=== PATIENT | male | born 1980 | race Caucasian/White ===

== ENCOUNTER 2017-03-20 15:58 | Emergency (ER) | payer MEDICAID ==
[~2017-03-20] VITALS: Ht 175.3 cm; Wt 104.0 kg
[~2017-03-20 15:58] MED LIST: BENZ2TAB58 PO; CLOZ100 PO; DIVA500T52 PO; MULT1TAB8 PO; OXYB5 PO; PANT40TA25 PO; RISP2 PO
[2017-03-20] MEDS ORDERED: SODIUM CHLORIDE 0.9% 1,000 ML IV ONE (16:45)
[2017-03-20] MEDS ORDERED: ONDANSETRON HCL 4 MG/2 ML VIAL IVP ONE (16:45)
[2017-03-20 16:54] LABS: BASOPHILS % (AUTO) 0.2 % (0.0-2.0); EOSINOPHILS % (AUTO) 0.1 % (1.0-6.0); HEMATOCRIT 45.7 % (41-53); HEMOGLOBIN 15.3 g/dL (13.5-17.5); LYMPHOCYTES # (AUTO) 1.5 K/uL (1.0-4.8); LYMPHOCYTES % (AUTO) 28.8 % (22.0-44.0); MEAN CORPUSCULAR HEMOGLOBIN 30.1 pg (26.0-34.0); MEAN CORPUSCULAR HGB CONC 33.6 G/dL (31.0-37.0); MEAN CORPUSCULAR VOLUME 90 fL (80-100); MONOCYTES # (AUTO) 0.3 K/uL (0.1-1.0); MONOCYTES % (AUTO) 6.2 % (2.0-9.0); NEUTROPHILS # (AUTO) 3.3 K/uL (1.8-7.7); NEUTROPHILS % (AUTO) 64.7 % (40.0-70.0); PLATELET COUNT (AUTO) 195 K/uL (150-450); RED BLOOD CELL COUNT(AUTO) 5.09 MIL/uL (4.50-5.90); RED CELL DISTRIBUTION WIDTH 13.7 % (11.5-14.5); WHITE BLOOD COUNT (AUTO) 5.1 K/uL (4.5-11.0)
[2017-03-20 17:06] LABS: ANION GAP 7 mmol/L (8-16); CALCIUM, TOTAL 9.4 mg/dL (8.8-10.5); CARBON DIOXIDE 31 mmol/L (22-29); CHLORIDE 101 mmol/L (98-107); CREATININE 1.17 mg/dL (0.60-1.30); GLOMERULAR FILTR. RATE CALC > 60 mL/min (>60); SODIUM SERUM 139 mmol/L (136-145); UREA NITROGEN, BLOOD 11 mg/dL (7-18)
[2017-03-20 17:12] LABS: ALANINE AMINOTRANSFERASE 49 U/L (12-78); ALBUMIN 4.4 g/dL (3.4-5.0); ASPARTATE AMINOTRANSFERASE 27 U/L (15-37); BILIRUBIN,TOTAL 0.2 mg/dL (0.1-1.0); TOTAL PROTEIN, SERUM 8.1 g/dL (6.4-8.2); VALPROIC ACID 83 mcg/mL (50-100)
[2017-03-20 18:54] VITALS: BP 136/76
== END 2017-03-20 19:06 | disposition home or self-care (01) ==
LOC: EMS 16:00
DX: R11.2 Nausea with vomiting, unspecified (principal); F10.10 Alcohol abuse, uncomplicated; F12.90 Cannabis use, unspecified, uncomplicated; K21.9 Gastro-esophageal reflux disease without esophagitis; I10 Essential (primary) hypertension; Z88.2 Allergy status to sulfonamides; Z91.011 Allergy to milk products; Z91.010 Allergy to peanuts
CPT/HCPCS: 36415; 80053; 80164; 83690; 85025; 96361; 96374; 99284; G0480; J2405; J7030

== ENCOUNTER 2018-05-11 14:25 | Inpatient (IN) | payer MEDICAID ==
[~2018-05-11] VITALS: Ht 175.3 cm; Wt 97.9 kg
[2018-05-11 15:08] LABS: HEMATOCRIT 36.3 % (41-53); HEMOGLOBIN 12.8 g/dL (13.5-17.5); MEAN CORPUSCULAR HGB CONC 35.3 G/dL (31.0-37.0); MEAN CORPUSCULAR VOLUME 85 fL (80-100); PLATELET COUNT (AUTO) 158 K/uL (150-450); RED BLOOD CELL COUNT(AUTO) 4.28 MIL/uL (4.50-5.90); RED CELL DISTRIBUTION WIDTH 13.8 % (11.5-14.5)
[2018-05-11 15:13] LABS: ANION GAP 9 mmol/L (8-16); CALCIUM, TOTAL 8.2 mg/dL (8.8-10.5); CARBON DIOXIDE 27 mmol/L (22-29); CHLORIDE 96 mmol/L (98-107); CREATININE 1.25 mg/dL (0.60-1.30); GLOMERULAR FILTR. RATE CALC > 60 mL/min (>60); GLUCOSE,RANDOM 113 mg/dL (70-110); POTASSIUM 3.3 mmol/L (3.5-5.1); SODIUM SERUM 132 mmol/L (136-145); UREA NITROGEN, BLOOD 11 mg/dL (7-18)
[2018-05-11 15:19] LABS: ALANINE AMINOTRANSFERASE 58 U/L (12-78); ALBUMIN 3.3 g/dL (3.4-5.0); ALKALINE PHOSPHATASE 71 U/L (46-116); ASPARTATE AMINOTRANSFERASE 50 U/L (15-37); BILIRUBIN,TOTAL 0.5 mg/dL (0.1-1.0); TOTAL PROTEIN, SERUM 7.1 g/dL (6.4-8.2)
[2018-05-11 15:42] LABS: BAND NEUTROPHILS % (MANUAL) 9 % (0-5); LYMPHOCYTES % (MANUAL) 36 % (22-44); MONOCYTES % (MANUAL) 13 % (2-9); SEGMENTED NEUTROPHILS % 42 % (40-70)
[2018-05-11 16:10] LABS: AMPHET/METH SCREEN,URINE NEGATIVE (NEGATIVE); BARBITURATE SCREEN, URINE NEGATIVE (NEGATIVE); BENZODIAZEPINES SCREEN,URINE NEGATIVE (NEGATIVE); CANNABINOID SCREEN,URINE NEGATIVE (NEGATIVE); COCAINE SCREEN,URINE NEGATIVE (NEGATIVE); METHADONE SCREEN, URINE NEGATIVE (NEGATIVE); OPIATE SCREEN,URINE NEGATIVE (NEGATIVE)
[2018-05-11 16:11] LABS: PHENCYCLIDINE SCREEN,URINE NEGATIVE (NEGATIVE)
[2018-05-11 16:16] LABS: APPEARANCE,URINE CLEAR (CLEAR); BILIRUBIN,URINE NEGATIVE (NEGATIVE); GLUCOSE, URINE (UA) NEGATIVE (NEGATIVE); KETONES,URINE NEGATIVE (NEGATIVE); LEUKOCYTE ESTERASE ,URINE NEGATIVE (NEGATIVE); NITRATE,URINE NEGATIVE (NEGATIVE); OCCULT BLOOD,URINE NEGATIVE (NEGATIVE); PROTEIN,URINE NEGATIVE (NEGATIVE)
[2018-05-11] MEDS: HALOPERIDOL 5 MG TABLET PO PRN (18:14)
[2018-05-11 19:39] VITALS: BP 136/74
[2018-05-11] MEDS: ZOLPIDEM TARTRATE 10 MG TABLET PO PRN (20:15)
[2018-05-11] MEDS ORDERED: IBUPROFEN 600 MG TABLET PO PRN (20:30)
[2018-05-11] MEDS ORDERED: BACITRACIN 28.4 GM OINTMENT TP PRN (20:30)
[2018-05-11] MEDS ORDERED: BENZOCAINE/MENTHOL LOZENGE MM PRN (20:30)
[2018-05-11] MEDS ORDERED: POTASSIUM CHLORIDE 20 MEQ ER TABLET PO ONE (20:30)
[2018-05-11] MEDS ORDERED: PETROLATUM,WHITE 71 GM JELLY TP PRN (20:30)
[2018-05-11] MEDS ORDERED: CloNIDine HCL 0.1 MG TABLET PO PRN (20:30)
[2018-05-11] MEDS ORDERED: ONDANSETRON HCL 4 MG TABLET PO PRN (20:30)
[2018-05-11] MEDS ORDERED: ALBUTEROL SULFATE HFA 90 MCG/PUFF 8 GM INHALER IH PRN (20:30)
[2018-05-11] MEDS ORDERED: MAGNESIUM HYDROXIDE SUSPENSION 30 ML UDCUP PO PRN (20:30)
[2018-05-12] MEDS: HALOPERIDOL 5 MG TABLET PO PRN ×3 (06:25→16:34)
[2018-05-12 08:00] VITALS: BP 140/73
[2018-05-12] MEDS: DOCUSATE SODIUM 100 MG CAPSULE PO SCH (09:06)
[2018-05-12] MEDS: PANTOPRAZOLE SODIUM 40 MG DR TABLET PO SCH (09:06)
[2018-05-12] MEDS: OXYBUTYNIN CHLORIDE 5 MG ER TABLET PO SCH (09:06)
[2018-05-12] MEDS ORDERED: DIVALPROEX SODIUM 500 MG ER TABLET PO SCH (09:44)
[2018-05-12] MEDS: QUEtiapine FUMARATE 100 MG TABLET PO SCH (10:29)
[2018-05-12] MEDS: BENZTROPINE MESYLATE 2 MG TABLET PO SCH ×2 (10:29→20:28)
[2018-05-12 16:00] VITALS: BP 144/89
[2018-05-12] MEDS ORDERED: LORazepam 2 MG/ML VIAL ONE (20:26)
[2018-05-12] MEDS ORDERED: HALOPERIDOL LACTATE 5 MG/ML VIAL ONE (20:27)
[2018-05-12] MEDS ORDERED: DiphenhydrAMINE HCL 50 MG/ML VIAL ONE (20:27)
[2018-05-12] MEDS: QUEtiapine FUMARATE 200 MG TABLET PO SCH (20:28)
[2018-05-12] MEDS: ZOLPIDEM TARTRATE 10 MG TABLET PO PRN (20:28)
[2018-05-12] MEDS ORDERED: DiphenhydrAMINE HCL 50 MG/ML VIAL IM ONE (20:30)
[2018-05-12] MEDS ORDERED: HALOPERIDOL LACTATE 5 MG/ML VIAL IM ONE (20:30)
[2018-05-12] MEDS ORDERED: LORazepam 2 MG/ML VIAL IM ONE (20:30)
[2018-05-12 21:02] VITALS: BP 126/65
[2018-05-13] MEDS ORDERED: SODIUM CHLORIDE 1 GM TABLET PO ONE (05:00)
[2018-05-13 06:04] VITALS: BP 122/68
[2018-05-13] MEDS: BENZTROPINE MESYLATE 2 MG TABLET PO SCH ×2 (08:25→20:40)
[2018-05-13] MEDS: OXYBUTYNIN CHLORIDE 5 MG ER TABLET PO SCH (08:25)
[2018-05-13] MEDS: PANTOPRAZOLE SODIUM 40 MG DR TABLET PO SCH (08:25)
[2018-05-13] MEDS: QUEtiapine FUMARATE 100 MG TABLET PO SCH (08:25)
[2018-05-13] MEDS: DOCUSATE SODIUM 100 MG CAPSULE PO SCH (08:25)
[2018-05-13] MEDS: MULTIVITAMINS WITH MINERALS, THERAPEUTIC TABLET PO SCH (08:25)
[2018-05-13 08:33] VITALS: BP 123/93
[2018-05-13 08:47] LABS: BASOPHILS % (AUTO) 0.3 % (0.0-2.0); EOSINOPHILS % (AUTO) 0 % (1.0-6.0); HEMATOCRIT 38.3 % (41-53); HEMOGLOBIN 13.5 g/dL (13.5-17.5); LYMPHOCYTES # (AUTO) 1.4 K/uL (1.0-4.8); LYMPHOCYTES % (AUTO) 29.7 % (22.0-44.0); MEAN CORPUSCULAR HEMOGLOBIN 30.2 pg (26.0-34.0); MEAN CORPUSCULAR HGB CONC 35.3 G/dL (31.0-37.0); MEAN CORPUSCULAR VOLUME 86 fL (80-100); MONOCYTES # (AUTO) 0.5 K/uL (0.1-1.0); NEUTROPHILS # (AUTO) 2.8 K/uL (1.8-7.7); PLATELET COUNT (AUTO) 167 K/uL (150-450); RED BLOOD CELL COUNT(AUTO) 4.48 MIL/uL (4.50-5.90); RED CELL DISTRIBUTION WIDTH 14.2 % (11.5-14.5)
[2018-05-13 09:21] LABS: % IRON SATURATION 15.8 % (30-44); IRON, SERUM 49 mcg/dL (50-175); TOTAL IRON BINDING CAPACITY 310 mcg/dL (250-450)
[2018-05-13 09:34] LABS: ALANINE AMINOTRANSFERASE 53 U/L (12-78); ALBUMIN 3.7 g/dL (3.4-5.0); ALKALINE PHOSPHATASE 73 U/L (46-116); ANION GAP 9 mmol/L (8-16); ASPARTATE AMINOTRANSFERASE 33 U/L (15-37); BILIRUBIN,TOTAL 0.4 mg/dL (0.1-1.0); CALCIUM, TOTAL 8.5 mg/dL (8.8-10.5); CARBON DIOXIDE 26 mmol/L (22-29); CHLORIDE 104 mmol/L (98-107); CREATININE 1.28 mg/dL (0.60-1.30); FREE T4 (FREE THYROXINE) 0.87 ng/dL (0.76-1.46); GLOMERULAR FILTR. RATE CALC > 60 mL/min (>60); GLUCOSE,RANDOM 96 mg/dL (70-110); POTASSIUM 3.6 mmol/L (3.5-5.1); SODIUM SERUM 139 mmol/L (136-145); THYROID STIMULATING HORMONE 5.87 uIU/mL (0.36-3.74); TOTAL PROTEIN, SERUM 8.1 g/dL (6.4-8.2); UREA NITROGEN, BLOOD 16 mg/dL (7-18); VALPROIC ACID 30 mcg/mL (50-100)
[2018-05-13] MEDS: DIVALPROEX SODIUM 500 MG ER TABLET PO SCH ×2 (12:11→16:27)
[2018-05-13] MEDS: LORazepam 2 MG TABLET PO PRN ×2 (14:15→18:32)
[2018-05-13 16:00] VITALS: BP 125/74
[2018-05-13] MEDS: HALOPERIDOL 5 MG TABLET PO PRN (16:27)
[2018-05-13] MEDS: QUEtiapine FUMARATE 200 MG TABLET PO SCH (20:40)
[2018-05-13] MEDS: ZOLPIDEM TARTRATE 10 MG TABLET PO PRN (20:40)
[2018-05-14 04:36] VITALS: BP 125/80
[2018-05-14] MEDS: LEVOTHYROXINE SODIUM 25 MCG TABLET PO SCH (06:25)
[2018-05-14 08:29] VITALS: BP 144/85
[2018-05-14] MEDS: MULTIVITAMINS WITH MINERALS, THERAPEUTIC TABLET PO SCH (08:55)
[2018-05-14] MEDS: DIVALPROEX SODIUM 500 MG ER TABLET PO SCH ×3 (08:55→16:01)
[2018-05-14] MEDS: DOCUSATE SODIUM 100 MG CAPSULE PO SCH (08:55)
[2018-05-14] MEDS: QUEtiapine FUMARATE 100 MG TABLET PO SCH (08:55)
[2018-05-14] MEDS: BENZTROPINE MESYLATE 2 MG TABLET PO SCH ×2 (08:55→20:42)
[2018-05-14] MEDS: OXYBUTYNIN CHLORIDE 5 MG ER TABLET PO SCH (08:55)
[2018-05-14] MEDS: PANTOPRAZOLE SODIUM 40 MG DR TABLET PO SCH (08:56)
[2018-05-14 16:00] VITALS: BP 134/86
[2018-05-14] MEDS: HALOPERIDOL 5 MG TABLET PO PRN (16:01)
[2018-05-14] MEDS: LORazepam 2 MG TABLET PO PRN ×2 (16:01→20:43)
[2018-05-14] MEDS: QUEtiapine FUMARATE 200 MG TABLET PO SCH (20:42)
[2018-05-14] MEDS: ZOLPIDEM TARTRATE 10 MG TABLET PO PRN (20:43)
[2018-05-15 04:21] VITALS: BP 131/69
[2018-05-15] MEDS: LEVOTHYROXINE SODIUM 25 MCG TABLET PO SCH (06:17)
[2018-05-15] MEDS: MULTIVITAMINS WITH MINERALS, THERAPEUTIC TABLET PO SCH (08:05)
[2018-05-15] MEDS: PANTOPRAZOLE SODIUM 40 MG DR TABLET PO SCH (08:05)
[2018-05-15] MEDS: OXYBUTYNIN CHLORIDE 5 MG ER TABLET PO SCH (08:05)
[2018-05-15] MEDS: DOCUSATE SODIUM 100 MG CAPSULE PO SCH (08:05)
[2018-05-15] MEDS: BENZTROPINE MESYLATE 2 MG TABLET PO SCH ×2 (08:05→20:56)
[2018-05-15] MEDS: QUEtiapine FUMARATE 100 MG TABLET PO SCH (08:05)
[2018-05-15] MEDS: DIVALPROEX SODIUM 500 MG ER TABLET PO SCH ×3 (08:05→16:03)
[2018-05-15 08:25] VITALS: BP 137/82
[2018-05-15 16:00] VITALS: BP 142/72
[2018-05-15] MEDS: LORazepam 2 MG TABLET PO PRN (16:03)
[2018-05-15] MEDS: ZOLPIDEM TARTRATE 10 MG TABLET PO PRN (20:56)
[2018-05-15] MEDS: QUEtiapine FUMARATE 200 MG TABLET PO SCH (20:56)
[2018-05-16 00:05] VITALS: BP 124/75
[2018-05-16] MEDS: LEVOTHYROXINE SODIUM 25 MCG TABLET PO SCH (06:28)
[2018-05-16 08:09] VITALS: BP 127/67
[2018-05-16] MEDS: PANTOPRAZOLE SODIUM 40 MG DR TABLET PO SCH (08:09)
[2018-05-16] MEDS: BENZTROPINE MESYLATE 2 MG TABLET PO SCH ×2 (08:09→20:22)
[2018-05-16] MEDS: QUEtiapine FUMARATE 100 MG TABLET PO SCH (08:09)
[2018-05-16] MEDS: MULTIVITAMINS WITH MINERALS, THERAPEUTIC TABLET PO SCH (08:09)
[2018-05-16] MEDS: DOCUSATE SODIUM 100 MG CAPSULE PO SCH (08:09)
[2018-05-16] MEDS: DIVALPROEX SODIUM 500 MG ER TABLET PO SCH ×3 (08:09→16:21)
[2018-05-16] MEDS: LORazepam 2 MG TABLET PO PRN ×4 (08:10→20:22)
[2018-05-16] MEDS: OXYBUTYNIN CHLORIDE 5 MG ER TABLET PO SCH (08:10)
[2018-05-16] MEDS: HALOPERIDOL 5 MG TABLET PO PRN ×2 (12:21→16:21)
[2018-05-16 16:00] VITALS: BP 121/67
[2018-05-16] MEDS: QUEtiapine FUMARATE 200 MG TABLET PO SCH (20:22)
[2018-05-16] MEDS: ZOLPIDEM TARTRATE 10 MG TABLET PO PRN (20:22)
[2018-05-17 03:29] VITALS: BP 127/72
[2018-05-17 05:11] VITALS: BP 122/81
[2018-05-17] MEDS: IBUPROFEN 600 MG TABLET PO PRN (05:15)
[2018-05-17] MEDS: LORazepam 2 MG TABLET PO PRN ×4 (05:15→20:26)
[2018-05-17] MEDS: LEVOTHYROXINE SODIUM 25 MCG TABLET PO SCH (06:24)
[2018-05-17 08:12] VITALS: BP 123/61
[2018-05-17] MEDS: QUEtiapine FUMARATE 100 MG TABLET PO SCH (08:55)
[2018-05-17] MEDS: DIVALPROEX SODIUM 500 MG ER TABLET PO SCH ×3 (08:55→16:19)
[2018-05-17] MEDS: BENZTROPINE MESYLATE 2 MG TABLET PO SCH ×2 (08:55→20:26)
[2018-05-17] MEDS: OXYBUTYNIN CHLORIDE 5 MG ER TABLET PO SCH (08:56)
[2018-05-17] MEDS: DOCUSATE SODIUM 100 MG CAPSULE PO SCH (08:56)
[2018-05-17] MEDS: MULTIVITAMINS WITH MINERALS, THERAPEUTIC TABLET PO SCH (08:56)
[2018-05-17] MEDS: PANTOPRAZOLE SODIUM 40 MG DR TABLET PO SCH (08:56)
[2018-05-17] MEDS: HALOPERIDOL 5 MG TABLET PO PRN (13:30)
[2018-05-17 16:16] VITALS: BP 130/76
[2018-05-17] MEDS: ZOLPIDEM TARTRATE 10 MG TABLET PO PRN (20:26)
[2018-05-17] MEDS: QUEtiapine FUMARATE 200 MG TABLET PO SCH (20:26)
[2018-05-18 00:30] VITALS: BP 133/72
[2018-05-18] MEDS: LEVOTHYROXINE SODIUM 25 MCG TABLET PO SCH (06:11)
[2018-05-18 09:19] VITALS: BP 138/87
[2018-05-18] MEDS: LORazepam 2 MG TABLET PO PRN ×2 (09:38→16:07)
[2018-05-18] MEDS: BENZTROPINE MESYLATE 2 MG TABLET PO SCH ×2 (09:38→20:11)
[2018-05-18] MEDS: HALOPERIDOL 5 MG TABLET PO PRN ×2 (09:38→16:07)
[2018-05-18] MEDS: PANTOPRAZOLE SODIUM 40 MG DR TABLET PO SCH (09:38)
[2018-05-18] MEDS: QUEtiapine FUMARATE 100 MG TABLET PO SCH (09:38)
[2018-05-18] MEDS: DIVALPROEX SODIUM 500 MG ER TABLET PO SCH ×3 (09:38→16:07)
[2018-05-18] MEDS: DOCUSATE SODIUM 100 MG CAPSULE PO SCH (09:38)
[2018-05-18] MEDS: OXYBUTYNIN CHLORIDE 5 MG ER TABLET PO SCH (09:38)
[2018-05-18] MEDS: MULTIVITAMINS WITH MINERALS, THERAPEUTIC TABLET PO SCH (09:38)
[2018-05-18 16:00] VITALS: BP 124/69
[2018-05-18] MEDS: ZOLPIDEM TARTRATE 10 MG TABLET PO PRN (20:11)
[2018-05-18] MEDS: QUEtiapine FUMARATE 200 MG TABLET PO SCH (20:11)
[2018-05-19 00:34] VITALS: BP 130/72
[2018-05-19] MEDS: LEVOTHYROXINE SODIUM 25 MCG TABLET PO SCH (06:22)
[2018-05-19 08:02] VITALS: BP 133/70
[2018-05-19] MEDS: DOCUSATE SODIUM 100 MG CAPSULE PO SCH (08:06)
[2018-05-19] MEDS: BENZTROPINE MESYLATE 2 MG TABLET PO SCH ×2 (08:06→21:02)
[2018-05-19] MEDS: DIVALPROEX SODIUM 500 MG ER TABLET PO SCH ×3 (08:06→17:08)
[2018-05-19] MEDS: QUEtiapine FUMARATE 100 MG TABLET PO SCH (08:07)
[2018-05-19] MEDS: OXYBUTYNIN CHLORIDE 5 MG ER TABLET PO SCH (08:09)
[2018-05-19] MEDS: PANTOPRAZOLE SODIUM 40 MG DR TABLET PO SCH (08:10)
[2018-05-19] MEDS: LORazepam 2 MG TABLET PO PRN ×2 (08:24→17:09)
[2018-05-19] MEDS: MULTIVITAMINS WITH MINERALS, THERAPEUTIC TABLET PO SCH (09:35)
[2018-05-19 16:13] VITALS: BP 123/69
[2018-05-19] MEDS: ZOLPIDEM TARTRATE 10 MG TABLET PO PRN (21:02)
[2018-05-19] MEDS: QUEtiapine FUMARATE 200 MG TABLET PO SCH (21:02)
[2018-05-20 05:13] VITALS: BP 123/80
[2018-05-20] MEDS: LEVOTHYROXINE SODIUM 25 MCG TABLET PO SCH (06:21)
[2018-05-20 08:41] VITALS: BP 132/77
[2018-05-20] MEDS: PANTOPRAZOLE SODIUM 40 MG DR TABLET PO SCH (08:44)
[2018-05-20] MEDS: OXYBUTYNIN CHLORIDE 5 MG ER TABLET PO SCH (08:44)
[2018-05-20] MEDS: BENZTROPINE MESYLATE 2 MG TABLET PO SCH ×2 (08:45→20:26)
[2018-05-20] MEDS: LORazepam 2 MG TABLET PO PRN ×3 (08:45→20:26)
[2018-05-20] MEDS: QUEtiapine FUMARATE 100 MG TABLET PO SCH (08:45)
[2018-05-20] MEDS: DOCUSATE SODIUM 100 MG CAPSULE PO SCH (08:45)
[2018-05-20] MEDS: MULTIVITAMINS WITH MINERALS, THERAPEUTIC TABLET PO SCH (08:45)
[2018-05-20] MEDS: DIVALPROEX SODIUM 500 MG ER TABLET PO SCH ×3 (08:45→17:17)
[2018-05-20 16:15] VITALS: BP 123/87
[2018-05-20] MEDS: QUEtiapine FUMARATE 200 MG TABLET PO SCH (20:26)
[2018-05-21 04:44] VITALS: BP 114/72
[2018-05-21] MEDS: LEVOTHYROXINE SODIUM 25 MCG TABLET PO SCH (06:31)
[2018-05-21 08:07] VITALS: BP 140/69
[2018-05-21] MEDS: MULTIVITAMINS WITH MINERALS, THERAPEUTIC TABLET PO SCH (08:38)
[2018-05-21] MEDS: BENZTROPINE MESYLATE 2 MG TABLET PO SCH ×2 (08:38→20:32)
[2018-05-21] MEDS: DOCUSATE SODIUM 100 MG CAPSULE PO SCH (08:38)
[2018-05-21] MEDS: QUEtiapine FUMARATE 100 MG TABLET PO SCH (08:38)
[2018-05-21] MEDS: DIVALPROEX SODIUM 500 MG ER TABLET PO SCH ×3 (08:39→16:28)
[2018-05-21] MEDS: OXYBUTYNIN CHLORIDE 5 MG ER TABLET PO SCH (08:41)
[2018-05-21] MEDS: PANTOPRAZOLE SODIUM 40 MG DR TABLET PO SCH (08:41)
[2018-05-21 16:00] VITALS: BP 136/89
[2018-05-21] MEDS: LORazepam 2 MG TABLET PO PRN ×2 (16:28→20:32)
[2018-05-21] MEDS: HALOPERIDOL 5 MG TABLET PO PRN (16:28)
[2018-05-21] MEDS: QUEtiapine FUMARATE 200 MG TABLET PO SCH (20:32)
[2018-05-22] MEDS: LEVOTHYROXINE SODIUM 25 MCG TABLET PO SCH (06:08)
[2018-05-22] MEDS: OXYBUTYNIN CHLORIDE 5 MG ER TABLET PO SCH (08:09)
[2018-05-22] MEDS: PANTOPRAZOLE SODIUM 40 MG DR TABLET PO SCH (08:09)
[2018-05-22] MEDS: LORazepam 2 MG TABLET PO PRN ×3 (08:10→16:46)
[2018-05-22] MEDS: MULTIVITAMINS WITH MINERALS, THERAPEUTIC TABLET PO SCH (08:10)
[2018-05-22] MEDS: QUEtiapine FUMARATE 100 MG TABLET PO SCH (08:10)
[2018-05-22] MEDS: BENZTROPINE MESYLATE 2 MG TABLET PO SCH ×2 (08:10→20:20)
[2018-05-22] MEDS: DIVALPROEX SODIUM 500 MG ER TABLET PO SCH ×3 (08:10→16:06)
[2018-05-22 08:25] VITALS: BP 126/62
[2018-05-22] MEDS: DOCUSATE SODIUM 100 MG CAPSULE PO SCH (09:01)
[2018-05-22] MEDS: HALOPERIDOL 5 MG TABLET PO PRN ×2 (12:18→16:46)
[2018-05-22 16:00] VITALS: BP 128/66
[2018-05-22] MEDS: QUEtiapine FUMARATE 200 MG TABLET PO SCH (20:20)
[2018-05-22] MEDS: ZOLPIDEM TARTRATE 10 MG TABLET PO PRN (20:20)
[2018-05-23 04:28] VITALS: BP 111/79
[2018-05-23] MEDS: LEVOTHYROXINE SODIUM 25 MCG TABLET PO SCH (06:33)
[2018-05-23 08:23] VITALS: BP 134/72
[2018-05-23] MEDS: MULTIVITAMINS WITH MINERALS, THERAPEUTIC TABLET PO SCH (08:39)
[2018-05-23] MEDS: BENZTROPINE MESYLATE 2 MG TABLET PO SCH ×2 (08:39→20:13)
[2018-05-23] MEDS: DOCUSATE SODIUM 100 MG CAPSULE PO SCH (08:39)
[2018-05-23] MEDS: PANTOPRAZOLE SODIUM 40 MG DR TABLET PO SCH ×2 (08:39→08:44)
[2018-05-23] MEDS: QUEtiapine FUMARATE 100 MG TABLET PO SCH (08:39)
[2018-05-23] MEDS: DIVALPROEX SODIUM 500 MG ER TABLET PO SCH ×3 (08:39→16:07)
[2018-05-23] MEDS: OXYBUTYNIN CHLORIDE 5 MG ER TABLET PO SCH (09:00)
[2018-05-23] MEDS: LORazepam 2 MG TABLET PO PRN ×2 (09:09→16:07)
[2018-05-23 16:09] VITALS: BP 127/81
[2018-05-23] MEDS: ZOLPIDEM TARTRATE 10 MG TABLET PO PRN (20:13)
[2018-05-23] MEDS: QUEtiapine FUMARATE 200 MG TABLET PO SCH (20:13)
[2018-05-24 01:09] VITALS: BP 128/75
[2018-05-24] MEDS: ACETAMINOPHEN 325 MG TABLET PO PRN (03:19)
[2018-05-24] MEDS: LEVOTHYROXINE SODIUM 25 MCG TABLET PO SCH (06:07)
[2018-05-24] MEDS: LORazepam 2 MG TABLET PO PRN ×2 (07:08→16:21)
[2018-05-24] MEDS: HALOPERIDOL 5 MG TABLET PO PRN ×2 (07:08→16:21)
[2018-05-24] MEDS: BENZTROPINE MESYLATE 2 MG TABLET PO SCH ×2 (08:28→20:31)
[2018-05-24] MEDS: DIVALPROEX SODIUM 500 MG ER TABLET PO SCH ×3 (08:28→16:21)
[2018-05-24] MEDS: QUEtiapine FUMARATE 100 MG TABLET PO SCH (08:28)
[2018-05-24] MEDS: MULTIVITAMINS WITH MINERALS, THERAPEUTIC TABLET PO SCH (08:28)
[2018-05-24] MEDS: DOCUSATE SODIUM 100 MG CAPSULE PO SCH (08:28)
[2018-05-24] MEDS: OXYBUTYNIN CHLORIDE 5 MG ER TABLET PO SCH (08:30)
[2018-05-24] MEDS: PANTOPRAZOLE SODIUM 40 MG DR TABLET PO SCH (08:31)
[2018-05-24 16:25] VITALS: BP 125/81
[2018-05-24] MEDS: ZOLPIDEM TARTRATE 10 MG TABLET PO PRN (20:31)
[2018-05-24] MEDS: QUEtiapine FUMARATE 200 MG TABLET PO SCH (20:31)
[2018-05-25 01:41] VITALS: BP 109/73
[2018-05-25] MEDS: LEVOTHYROXINE SODIUM 25 MCG TABLET PO SCH (06:20)
[2018-05-25 08:09] VITALS: BP 122/84
[2018-05-25] MEDS: QUEtiapine FUMARATE 100 MG TABLET PO SCH (08:12)
[2018-05-25] MEDS: MULTIVITAMINS WITH MINERALS, THERAPEUTIC TABLET PO SCH (08:12)
[2018-05-25] MEDS: DIVALPROEX SODIUM 500 MG ER TABLET PO SCH ×3 (08:12→16:19)
[2018-05-25] MEDS: DOCUSATE SODIUM 100 MG CAPSULE PO SCH (08:12)
[2018-05-25] MEDS: BENZTROPINE MESYLATE 2 MG TABLET PO SCH ×2 (08:14→20:42)
[2018-05-25] MEDS: OXYBUTYNIN CHLORIDE 5 MG ER TABLET PO SCH (08:15)
[2018-05-25] MEDS: PANTOPRAZOLE SODIUM 40 MG DR TABLET PO SCH (08:16)
[2018-05-25] MEDS: LORazepam 2 MG TABLET PO PRN ×3 (09:55→20:42)
[2018-05-25 16:00] VITALS: BP 133/80
[2018-05-25] MEDS: HALOPERIDOL 5 MG TABLET PO PRN (16:19)
[2018-05-25] MEDS: QUEtiapine FUMARATE 200 MG TABLET PO SCH (20:42)
[2018-05-25] MEDS: ZOLPIDEM TARTRATE 10 MG TABLET PO PRN (20:42)
[2018-05-26 04:57] VITALS: BP 123/84
[2018-05-26] MEDS: LEVOTHYROXINE SODIUM 25 MCG TABLET PO SCH (06:21)
[2018-05-26 08:15] VITALS: BP 130/81
[2018-05-26] MEDS: DIVALPROEX SODIUM 500 MG ER TABLET PO SCH ×3 (08:49→16:58)
[2018-05-26] MEDS: DOCUSATE SODIUM 100 MG CAPSULE PO SCH (08:49)
[2018-05-26] MEDS: BENZTROPINE MESYLATE 2 MG TABLET PO SCH ×2 (08:49→20:55)
[2018-05-26] MEDS: OXYBUTYNIN CHLORIDE 5 MG ER TABLET PO SCH (08:50)
[2018-05-26] MEDS: PANTOPRAZOLE SODIUM 40 MG DR TABLET PO SCH (08:50)
[2018-05-26] MEDS: QUEtiapine FUMARATE 100 MG TABLET PO SCH (08:50)
[2018-05-26] MEDS: MULTIVITAMINS WITH MINERALS, THERAPEUTIC TABLET PO SCH (08:50)
[2018-05-26] MEDS: ACETAMINOPHEN 325 MG TABLET PO PRN (12:45)
[2018-05-26 12:47] VITALS: BP 126/78
[2018-05-26 13:47] VITALS: BP 127/76
[2018-05-26] MEDS: SIMETHICONE 80 MG CHEWABLE TABLET CHEW PRN ×2 (15:27→20:55)
[2018-05-26 16:00] VITALS: BP 130/80
[2018-05-26] MEDS: LORazepam 2 MG TABLET PO PRN (16:59)
[2018-05-26] MEDS: QUEtiapine FUMARATE 200 MG TABLET PO SCH (20:55)
[2018-05-26] MEDS: ZOLPIDEM TARTRATE 10 MG TABLET PO PRN (20:55)
[2018-05-27 03:56] VITALS: BP 109/75
[2018-05-27] MEDS: LEVOTHYROXINE SODIUM 25 MCG TABLET PO SCH (06:23)
[2018-05-27 08:00] VITALS: BP 139/82
[2018-05-27] MEDS: QUEtiapine FUMARATE 100 MG TABLET PO SCH (08:21)
[2018-05-27] MEDS: OXYBUTYNIN CHLORIDE 5 MG ER TABLET PO SCH (08:21)
[2018-05-27] MEDS: BENZTROPINE MESYLATE 2 MG TABLET PO SCH ×2 (08:21→20:58)
[2018-05-27] MEDS: DOCUSATE SODIUM 100 MG CAPSULE PO SCH (08:21)
[2018-05-27] MEDS: LORazepam 2 MG TABLET PO PRN ×3 (08:21→17:18)
[2018-05-27] MEDS: DIVALPROEX SODIUM 500 MG ER TABLET PO SCH ×3 (08:21→16:13)
[2018-05-27] MEDS: PANTOPRAZOLE SODIUM 40 MG DR TABLET PO SCH (08:21)
[2018-05-27] MEDS: MULTIVITAMINS WITH MINERALS, THERAPEUTIC TABLET PO SCH (08:21)
[2018-05-27] MEDS: HALOPERIDOL 5 MG TABLET PO PRN ×2 (08:21→16:13)
[2018-05-27] MEDS: IBUPROFEN 600 MG TABLET PO PRN (11:01)
[2018-05-27] MEDS: SIMETHICONE 80 MG CHEWABLE TABLET CHEW PRN ×2 (16:13→21:53)
[2018-05-27 17:19] VITALS: BP 129/76
[2018-05-27] MEDS: QUEtiapine FUMARATE 200 MG TABLET PO SCH (20:58)
[2018-05-28 04:51] VITALS: BP 122/78
[2018-05-28] MEDS: IBUPROFEN 600 MG TABLET PO PRN ×2 (05:21→20:53)
[2018-05-28] MEDS: LEVOTHYROXINE SODIUM 25 MCG TABLET PO SCH (06:30)
[2018-05-28] MEDS: SIMETHICONE 80 MG CHEWABLE TABLET CHEW PRN ×3 (06:38→17:36)
[2018-05-28 08:07] VITALS: BP 117/62
[2018-05-28] MEDS: MULTIVITAMINS WITH MINERALS, THERAPEUTIC TABLET PO SCH (08:16)
[2018-05-28] MEDS: DIVALPROEX SODIUM 500 MG ER TABLET PO SCH ×3 (08:16→16:36)
[2018-05-28] MEDS: QUEtiapine FUMARATE 100 MG TABLET PO SCH (08:17)
[2018-05-28] MEDS: DOCUSATE SODIUM 100 MG CAPSULE PO SCH (09:00)
[2018-05-28] MEDS: BENZTROPINE MESYLATE 2 MG TABLET PO SCH ×2 (09:00→20:53)
[2018-05-28] MEDS: OXYBUTYNIN CHLORIDE 5 MG ER TABLET PO SCH (09:00)
[2018-05-28] MEDS: PANTOPRAZOLE SODIUM 40 MG DR TABLET PO SCH (09:00)
[2018-05-28] MEDS: LORazepam 2 MG TABLET PO PRN ×2 (09:33→16:36)
[2018-05-28 16:00] VITALS: BP 130/80
[2018-05-28] MEDS: HALOPERIDOL 5 MG TABLET PO PRN (16:36)
[2018-05-28] MEDS: QUEtiapine FUMARATE 200 MG TABLET PO SCH (20:53)
[2018-05-28] MEDS: ZOLPIDEM TARTRATE 10 MG TABLET PO PRN (20:53)
[2018-05-29 04:05] VITALS: BP 123/72
[2018-05-29] MEDS: LEVOTHYROXINE SODIUM 25 MCG TABLET PO SCH (06:08)
[2018-05-29] MEDS: SIMETHICONE 80 MG CHEWABLE TABLET CHEW PRN ×2 (06:08→18:36)
[2018-05-29] MEDS: DIVALPROEX SODIUM 500 MG ER TABLET PO SCH ×3 (08:25→17:14)
[2018-05-29] MEDS: BENZTROPINE MESYLATE 2 MG TABLET PO SCH ×2 (08:25→21:04)
[2018-05-29] MEDS: MULTIVITAMINS WITH MINERALS, THERAPEUTIC TABLET PO SCH (08:26)
[2018-05-29] MEDS: QUEtiapine FUMARATE 100 MG TABLET PO SCH (08:26)
[2018-05-29] MEDS: PANTOPRAZOLE SODIUM 40 MG DR TABLET PO SCH (09:00)
[2018-05-29] MEDS: OXYBUTYNIN CHLORIDE 5 MG ER TABLET PO SCH (09:00)
[2018-05-29] MEDS: DOCUSATE SODIUM 100 MG CAPSULE PO SCH (09:00)
[2018-05-29] MEDS: LORazepam 2 MG TABLET PO PRN (09:37)
[2018-05-29] MEDS: HALOPERIDOL 5 MG TABLET PO PRN (09:37)
[2018-05-29] MEDS: ACETAMINOPHEN 325 MG TABLET PO PRN ×2 (11:15→21:05)
[2018-05-29] MEDS: IBUPROFEN 600 MG TABLET PO PRN (14:04)
[2018-05-29 16:00] VITALS: BP 132/65
[2018-05-29] MEDS: ZOLPIDEM TARTRATE 10 MG TABLET PO PRN (21:05)
[2018-05-29] MEDS: QUEtiapine FUMARATE 200 MG TABLET PO SCH (21:05)
[2018-05-30 01:45] VITALS: BP 112/78
[2018-05-30] MEDS: SIMETHICONE 80 MG CHEWABLE TABLET CHEW PRN ×3 (04:42→16:21)
[2018-05-30] MEDS: LEVOTHYROXINE SODIUM 25 MCG TABLET PO SCH (06:36)
[2018-05-30] MEDS: BENZTROPINE MESYLATE 2 MG TABLET PO SCH ×2 (08:13→21:01)
[2018-05-30] MEDS: DOCUSATE SODIUM 100 MG CAPSULE PO SCH (08:13)
[2018-05-30] MEDS: DIVALPROEX SODIUM 500 MG ER TABLET PO SCH ×3 (08:13→16:20)
[2018-05-30] MEDS: QUEtiapine FUMARATE 100 MG TABLET PO SCH (08:13)
[2018-05-30] MEDS: MULTIVITAMINS WITH MINERALS, THERAPEUTIC TABLET PO SCH (08:13)
[2018-05-30] MEDS: OXYBUTYNIN CHLORIDE 5 MG ER TABLET PO SCH (08:14)
[2018-05-30] MEDS: PANTOPRAZOLE SODIUM 40 MG DR TABLET PO SCH (08:14)
[2018-05-30 08:32] VITALS: BP 129/74
[2018-05-30] MEDS: IBUPROFEN 600 MG TABLET PO PRN (11:08)
[2018-05-30 11:10] VITALS: BP 147/76
[2018-05-30 12:10] VITALS: BP 135/78
[2018-05-30 16:00] VITALS: BP 132/79
[2018-05-30] MEDS: HALOPERIDOL 5 MG TABLET PO PRN (16:20)
[2018-05-30] MEDS: LORazepam 2 MG TABLET PO PRN ×2 (16:20→21:01)
[2018-05-30] MEDS: ZOLPIDEM TARTRATE 10 MG TABLET PO PRN (21:01)
[2018-05-30] MEDS: QUEtiapine FUMARATE 200 MG TABLET PO SCH (21:01)
[2018-05-31 02:05] VITALS: BP 130/76
[2018-05-31] MEDS: SIMETHICONE 80 MG CHEWABLE TABLET CHEW PRN ×2 (05:22→14:11)
[2018-05-31] MEDS: LEVOTHYROXINE SODIUM 25 MCG TABLET PO SCH (06:53)
[2018-05-31 08:12] VITALS: BP 122/75
[2018-05-31] MEDS: PANTOPRAZOLE SODIUM 40 MG DR TABLET PO SCH (08:24)
[2018-05-31] MEDS: BENZTROPINE MESYLATE 2 MG TABLET PO SCH ×2 (08:24→20:56)
[2018-05-31] MEDS: DIVALPROEX SODIUM 500 MG ER TABLET PO SCH ×3 (08:24→16:43)
[2018-05-31] MEDS: OXYBUTYNIN CHLORIDE 5 MG ER TABLET PO SCH (08:24)
[2018-05-31] MEDS: MULTIVITAMINS WITH MINERALS, THERAPEUTIC TABLET PO SCH (08:24)
[2018-05-31] MEDS: QUEtiapine FUMARATE 100 MG TABLET PO SCH (08:24)
[2018-05-31] MEDS: DOCUSATE SODIUM 100 MG CAPSULE PO SCH (08:24)
[2018-05-31] MEDS: LORazepam 2 MG TABLET PO PRN ×3 (08:25→16:43)
[2018-05-31] MEDS: IBUPROFEN 600 MG TABLET PO PRN (14:11)
[2018-05-31 16:29] VITALS: BP 139/76
[2018-05-31] MEDS: HALOPERIDOL 5 MG TABLET PO PRN (16:43)
[2018-05-31] MEDS: QUEtiapine FUMARATE 200 MG TABLET PO SCH (20:56)
[2018-05-31] MEDS: ZOLPIDEM TARTRATE 10 MG TABLET PO PRN (20:56)
[2018-06-01 06:05] VITALS: BP 137/77
[2018-06-01] MEDS: LEVOTHYROXINE SODIUM 25 MCG TABLET PO SCH (06:15)
[2018-06-01] MEDS: OXYBUTYNIN CHLORIDE 5 MG ER TABLET PO SCH (08:23)
[2018-06-01] MEDS: LORazepam 2 MG TABLET PO PRN ×2 (08:24→17:18)
[2018-06-01] MEDS: HALOPERIDOL 5 MG TABLET PO PRN ×2 (08:24→17:18)
[2018-06-01] MEDS: BENZTROPINE MESYLATE 2 MG TABLET PO SCH ×2 (08:24→21:06)
[2018-06-01] MEDS: QUEtiapine FUMARATE 100 MG TABLET PO SCH (08:24)
[2018-06-01] MEDS: MULTIVITAMINS WITH MINERALS, THERAPEUTIC TABLET PO SCH (08:24)
[2018-06-01] MEDS: PANTOPRAZOLE SODIUM 40 MG DR TABLET PO SCH (08:24)
[2018-06-01] MEDS: DIVALPROEX SODIUM 500 MG ER TABLET PO SCH ×3 (08:24→17:18)
[2018-06-01] MEDS: DOCUSATE SODIUM 100 MG CAPSULE PO SCH (08:24)
[2018-06-01] MEDS: IBUPROFEN 600 MG TABLET PO PRN (10:44)
[2018-06-01 10:45] VITALS: BP 128/74
[2018-06-01 11:45] VITALS: BP 132/68
[2018-06-01 16:00] VITALS: BP 129/70
[2018-06-01] MEDS: ZOLPIDEM TARTRATE 10 MG TABLET PO PRN (21:07)
[2018-06-01] MEDS: QUEtiapine FUMARATE 200 MG TABLET PO SCH (21:07)
[2018-06-02 03:31] VITALS: BP 125/71
[2018-06-02] MEDS: SIMETHICONE 80 MG CHEWABLE TABLET CHEW PRN (06:22)
[2018-06-02] MEDS: LEVOTHYROXINE SODIUM 25 MCG TABLET PO SCH (06:23)
[2018-06-02 08:00] VITALS: BP 121/68
[2018-06-02] MEDS: MULTIVITAMINS WITH MINERALS, THERAPEUTIC TABLET PO SCH (08:58)
[2018-06-02] MEDS: DOCUSATE SODIUM 100 MG CAPSULE PO SCH (08:59)
[2018-06-02] MEDS: BENZTROPINE MESYLATE 2 MG TABLET PO SCH ×2 (08:59→20:35)
[2018-06-02] MEDS: DIVALPROEX SODIUM 500 MG ER TABLET PO SCH ×3 (08:59→17:05)
[2018-06-02] MEDS: QUEtiapine FUMARATE 100 MG TABLET PO SCH (08:59)
[2018-06-02] MEDS: PANTOPRAZOLE SODIUM 40 MG DR TABLET PO SCH (08:59)
[2018-06-02] MEDS: OXYBUTYNIN CHLORIDE 5 MG ER TABLET PO SCH (08:59)
[2018-06-02] MEDS: LORazepam 2 MG TABLET PO PRN ×2 (09:20→17:05)
[2018-06-02 11:32] VITALS: BP 126/72
[2018-06-02] MEDS: IBUPROFEN 600 MG TABLET PO PRN (11:33)
[2018-06-02 12:32] VITALS: BP 122/72
[2018-06-02] MEDS: NYSTATIN 15 GM POWDER BOTTLE TP SCH ×2 (12:39→17:05)
[2018-06-02 16:00] VITALS: BP 120/71
[2018-06-02] MEDS: QUEtiapine FUMARATE 200 MG TABLET PO SCH (20:37)
[2018-06-02] MEDS: ZOLPIDEM TARTRATE 10 MG TABLET PO PRN (20:37)
[2018-06-03 03:09] VITALS: BP 122/77
[2018-06-03] MEDS: LEVOTHYROXINE SODIUM 25 MCG TABLET PO SCH (06:07)
[2018-06-03] MEDS: SIMETHICONE 80 MG CHEWABLE TABLET CHEW PRN (06:07)
[2018-06-03 08:13] VITALS: BP 133/80
[2018-06-03] MEDS: QUEtiapine FUMARATE 100 MG TABLET PO SCH (08:24)
[2018-06-03] MEDS: MULTIVITAMINS WITH MINERALS, THERAPEUTIC TABLET PO SCH (08:24)
[2018-06-03] MEDS: NYSTATIN 15 GM POWDER BOTTLE TP SCH ×2 (08:24→16:33)
[2018-06-03] MEDS: BENZTROPINE MESYLATE 2 MG TABLET PO SCH ×2 (08:24→21:10)
[2018-06-03] MEDS: IBUPROFEN 600 MG TABLET PO PRN (08:24)
[2018-06-03] MEDS: LORazepam 2 MG TABLET PO PRN ×3 (08:25→21:10)
[2018-06-03] MEDS: DOCUSATE SODIUM 100 MG CAPSULE PO SCH (08:25)
[2018-06-03] MEDS: OXYBUTYNIN CHLORIDE 5 MG ER TABLET PO SCH (08:25)
[2018-06-03] MEDS: PANTOPRAZOLE SODIUM 40 MG DR TABLET PO SCH (08:25)
[2018-06-03] MEDS: DIVALPROEX SODIUM 500 MG ER TABLET PO SCH ×3 (08:25→16:33)
[2018-06-03 09:26] VITALS: BP 135/84
[2018-06-03 16:00] VITALS: BP 134/78
[2018-06-03] MEDS: HALOPERIDOL 5 MG TABLET PO PRN (16:33)
[2018-06-03] MEDS: ZOLPIDEM TARTRATE 10 MG TABLET PO PRN (21:10)
[2018-06-03] MEDS: QUEtiapine FUMARATE 200 MG TABLET PO SCH (21:10)
[2018-06-04 04:10] VITALS: BP 109/79
[2018-06-04] MEDS: SIMETHICONE 80 MG CHEWABLE TABLET CHEW PRN ×2 (05:52→16:24)
[2018-06-04] MEDS: LEVOTHYROXINE SODIUM 25 MCG TABLET PO SCH (06:07)
[2018-06-04 08:10] VITALS: BP 129/76
[2018-06-04] MEDS: DOCUSATE SODIUM 100 MG CAPSULE PO SCH (08:48)
[2018-06-04] MEDS: QUEtiapine FUMARATE 100 MG TABLET PO SCH (08:48)
[2018-06-04] MEDS: DIVALPROEX SODIUM 500 MG ER TABLET PO SCH ×3 (08:48→16:01)
[2018-06-04] MEDS: MULTIVITAMINS WITH MINERALS, THERAPEUTIC TABLET PO SCH (08:48)
[2018-06-04] MEDS: BENZTROPINE MESYLATE 2 MG TABLET PO SCH ×2 (08:48→20:15)
[2018-06-04] MEDS: PANTOPRAZOLE SODIUM 40 MG DR TABLET PO SCH (08:50)
[2018-06-04] MEDS: NYSTATIN 15 GM POWDER BOTTLE TP SCH ×2 (08:50→16:02)
[2018-06-04] MEDS: OXYBUTYNIN CHLORIDE 5 MG ER TABLET PO SCH (08:50)
[2018-06-04] MEDS: LORazepam 2 MG TABLET PO PRN ×3 (10:04→20:15)
[2018-06-04 16:00] VITALS: BP 135/77
[2018-06-04] MEDS: HALOPERIDOL 5 MG TABLET PO PRN (16:02)
[2018-06-04] MEDS: ZOLPIDEM TARTRATE 10 MG TABLET PO PRN (20:15)
[2018-06-04] MEDS: QUEtiapine FUMARATE 200 MG TABLET PO SCH (20:15)
[2018-06-05 04:08] VITALS: BP 130/72
[2018-06-05] MEDS: SIMETHICONE 80 MG CHEWABLE TABLET CHEW PRN ×2 (06:17→17:59)
[2018-06-05] MEDS: LEVOTHYROXINE SODIUM 25 MCG TABLET PO SCH (06:17)
[2018-06-05 08:10] VITALS: BP 129/75
[2018-06-05] MEDS: DOCUSATE SODIUM 100 MG CAPSULE PO SCH (08:18)
[2018-06-05] MEDS: MULTIVITAMINS WITH MINERALS, THERAPEUTIC TABLET PO SCH (08:19)
[2018-06-05] MEDS: BENZTROPINE MESYLATE 2 MG TABLET PO SCH ×2 (08:19→20:46)
[2018-06-05] MEDS: QUEtiapine FUMARATE 100 MG TABLET PO SCH (08:19)
[2018-06-05] MEDS: DIVALPROEX SODIUM 500 MG ER TABLET PO SCH ×3 (08:20→16:13)
[2018-06-05] MEDS: PANTOPRAZOLE SODIUM 40 MG DR TABLET PO SCH (09:00)
[2018-06-05] MEDS: OXYBUTYNIN CHLORIDE 5 MG ER TABLET PO SCH (09:00)
[2018-06-05] MEDS: NYSTATIN 15 GM POWDER BOTTLE TP SCH ×2 (09:19→16:14)
[2018-06-05] MEDS: LORazepam 2 MG TABLET PO PRN ×3 (09:56→20:46)
[2018-06-05] MEDS: ACETAMINOPHEN 325 MG TABLET PO PRN (10:37)
[2018-06-05 16:00] VITALS: BP 125/76
[2018-06-05] MEDS: HALOPERIDOL 5 MG TABLET PO PRN (16:13)
[2018-06-05] MEDS: IBUPROFEN 600 MG TABLET PO PRN (17:13)
[2018-06-05] MEDS: QUEtiapine FUMARATE 200 MG TABLET PO SCH (20:46)
[2018-06-05] MEDS: ZOLPIDEM TARTRATE 10 MG TABLET PO PRN (20:46)
[2018-06-06 05:24] VITALS: BP 131/84
[2018-06-06] MEDS: LEVOTHYROXINE SODIUM 25 MCG TABLET PO SCH (06:29)
[2018-06-06] MEDS: SIMETHICONE 80 MG CHEWABLE TABLET CHEW PRN ×2 (06:30→13:39)
[2018-06-06 08:13] VITALS: BP 126/75
[2018-06-06] MEDS: DOCUSATE SODIUM 100 MG CAPSULE PO SCH (08:40)
[2018-06-06] MEDS: BENZTROPINE MESYLATE 2 MG TABLET PO SCH ×2 (08:40→20:16)
[2018-06-06] MEDS: DIVALPROEX SODIUM 500 MG ER TABLET PO SCH ×3 (08:41→16:06)
[2018-06-06] MEDS: MULTIVITAMINS WITH MINERALS, THERAPEUTIC TABLET PO SCH (08:41)
[2018-06-06] MEDS: QUEtiapine FUMARATE 100 MG TABLET PO SCH (08:41)
[2018-06-06] MEDS: NYSTATIN 15 GM POWDER BOTTLE TP SCH ×2 (08:41→16:08)
[2018-06-06] MEDS: LORazepam 2 MG TABLET PO PRN ×2 (08:41→16:06)
[2018-06-06] MEDS: PANTOPRAZOLE SODIUM 40 MG DR TABLET PO SCH (08:45)
[2018-06-06] MEDS: OXYBUTYNIN CHLORIDE 5 MG ER TABLET PO SCH (08:45)
[2018-06-06 16:00] VITALS: BP 121/64
[2018-06-06] MEDS: HALOPERIDOL 5 MG TABLET PO PRN (16:06)
[2018-06-06] MEDS: IBUPROFEN 600 MG TABLET PO PRN (17:43)
[2018-06-06] MEDS: QUEtiapine FUMARATE 200 MG TABLET PO SCH (20:16)
[2018-06-07 01:07] VITALS: BP 115/75
[2018-06-07] MEDS: ZOLPIDEM TARTRATE 10 MG TABLET PO PRN (02:57)
[2018-06-07] MEDS: LEVOTHYROXINE SODIUM 25 MCG TABLET PO SCH (06:11)
[2018-06-07 08:00] VITALS: BP 138/78
[2018-06-07] MEDS: PANTOPRAZOLE SODIUM 40 MG DR TABLET PO SCH (09:00)
[2018-06-07] MEDS: OXYBUTYNIN CHLORIDE 5 MG ER TABLET PO SCH (09:00)
[2018-06-07] MEDS: BENZTROPINE MESYLATE 2 MG TABLET PO SCH ×2 (09:25→21:18)
[2018-06-07] MEDS: DIVALPROEX SODIUM 500 MG ER TABLET PO SCH ×3 (09:26→16:43)
[2018-06-07] MEDS: DOCUSATE SODIUM 100 MG CAPSULE PO SCH (09:26)
[2018-06-07] MEDS: LORazepam 2 MG TABLET PO PRN ×2 (09:26→16:43)
[2018-06-07] MEDS: MULTIVITAMINS WITH MINERALS, THERAPEUTIC TABLET PO SCH (09:26)
[2018-06-07] MEDS: QUEtiapine FUMARATE 100 MG TABLET PO SCH (09:26)
[2018-06-07 16:00] VITALS: BP 129/81
[2018-06-07] MEDS: HALOPERIDOL 5 MG TABLET PO PRN (16:42)
[2018-06-07] MEDS: QUEtiapine FUMARATE 200 MG TABLET PO SCH (21:18)
[2018-06-08 02:04] VITALS: BP 122/75
[2018-06-08] MEDS: LEVOTHYROXINE SODIUM 25 MCG TABLET PO SCH (05:22)
[2018-06-08 08:09] VITALS: BP 132/76
[2018-06-08] MEDS: MULTIVITAMINS WITH MINERALS, THERAPEUTIC TABLET PO SCH (08:19)
[2018-06-08] MEDS: BENZTROPINE MESYLATE 2 MG TABLET PO SCH (08:19)
[2018-06-08] MEDS: QUEtiapine FUMARATE 100 MG TABLET PO SCH (08:19)
[2018-06-08] MEDS: DOCUSATE SODIUM 100 MG CAPSULE PO SCH (08:20)
[2018-06-08] MEDS: OXYBUTYNIN CHLORIDE 5 MG ER TABLET PO SCH (08:20)
[2018-06-08] MEDS: PANTOPRAZOLE SODIUM 40 MG DR TABLET PO SCH (08:20)
[2018-06-08] MEDS: DIVALPROEX SODIUM 500 MG ER TABLET PO SCH (08:20)
[2018-06-08] MEDS ORDERED: LEVO50TA11 PO (08:25)
[2018-06-08] MEDS ORDERED: QUET100T PO (08:25)
[2018-06-08] MEDS ORDERED: QUET200T PO (08:25)
== END 2018-06-08 11:03 | disposition home or self-care (01) | DRG 750 ==
LOC: EMS 14:39 → B3A 18:02
PROVIDERS: ADMIT Psychiatry & Neurology Child & Adolescent Psychiatry; ATTEND Psychiatry & Neurology Child & Adolescent Psychiatry
DX: F25.0 Schizoaffective disorder, bipolar type (principal); E87.1 Hypo-osmolality and hyponatremia; G40.909 Epilepsy, unspecified, not intractable, without status epilepticus; E83.51 Hypocalcemia; I10 Essential (primary) hypertension; B35.6 Tinea cruris; F41.9 Anxiety disorder, unspecified; K92.1 Melena; R21 Rash and other nonspecific skin eruption; E87.6 Hypokalemia; D64.9 Anemia, unspecified; N32.81 Overactive bladder; E03.9 Hypothyroidism, unspecified; K21.9 Gastro-esophageal reflux disease without esophagitis; Z91.19 Patient's noncompliance with other medical treatment and regimen; Z88.2 Allergy status to sulfonamides; Z91.011 Allergy to milk products; Z91.010 Allergy to peanuts; Z79.899 Other long term (current) drug therapy; Z72.89 Other problems related to lifestyle; Z71.41 Alcohol abuse counseling and surveillance of alcoholic
CPT/HCPCS: 80074; 83540; 83550; 84439; 84443; 87081; 99285; G0480; J1200; J1630; J2060

== ENCOUNTER 2018-06-17 13:52 | Inpatient (IN) | payer MEDICAID ==
[~2018-06-17] VITALS: Ht 175.3 cm; Wt 113.5 kg
[~2018-06-17 13:52] MED LIST changes: -CLOZ100 PO; +LEVO50TA11 PO; +QUET100T PO; +QUET200T PO; -RISP2 PO
[2018-06-17] MEDS ORDERED: LORazepam 2 MG/ML VIAL IM ONE (15:15)
[2018-06-17] MEDS ORDERED: DiphenhydrAMINE HCL 50 MG/ML VIAL IM ONE (15:15)
[2018-06-17] MEDS ORDERED: HALOPERIDOL LACTATE 5 MG/ML VIAL IM ONE (15:15)
[2018-06-17] MEDS ORDERED: PERMETHRIN 5% 60 GM CREAM TP ONE (15:15)
[2018-06-17 16:35] LABS: BASOPHILS % (AUTO) 0.6 % (0.0-2.0); EOSINOPHILS % (AUTO) 0.1 % (1.0-6.0); HEMATOCRIT 38.5 % (41-53); HEMOGLOBIN 13.5 g/dL (13.5-17.5); LYMPHOCYTES # (AUTO) 2.2 K/uL (1.0-4.8); LYMPHOCYTES % (AUTO) 22.8 % (22.0-44.0); MEAN CORPUSCULAR HEMOGLOBIN 30.3 pg (26.0-34.0); MEAN CORPUSCULAR HGB CONC 35.2 G/dL (31.0-37.0); MEAN CORPUSCULAR VOLUME 86 fL (80-100); MONOCYTES # (AUTO) 0.9 K/uL (0.1-1.0); MONOCYTES % (AUTO) 9.4 % (2.0-9.0); NEUTROPHILS # (AUTO) 6.5 K/uL (1.8-7.7); NEUTROPHILS % (AUTO) 67.1 % (40.0-70.0); PLATELET COUNT (AUTO) 230 K/uL (150-450); RED BLOOD CELL COUNT(AUTO) 4.46 MIL/uL (4.50-5.90); RED CELL DISTRIBUTION WIDTH 14.4 % (11.5-14.5)
[2018-06-17 16:54] LABS: ANION GAP 5 mmol/L (8-16); CALCIUM, TOTAL 8.6 mg/dL (8.8-10.5); CARBON DIOXIDE 30 mmol/L (22-29); CHLORIDE 103 mmol/L (98-107); CREATININE 1.07 mg/dL (0.60-1.30); GLOMERULAR FILTR. RATE CALC > 60 mL/min (>60); GLUCOSE,RANDOM 101 mg/dL (70-110); POTASSIUM 3.5 mmol/L (3.5-5.1); SODIUM SERUM 138 mmol/L (136-145); UREA NITROGEN, BLOOD 22 mg/dL (7-18)
[2018-06-17 17:08] LABS: ALANINE AMINOTRANSFERASE 26 U/L (12-78); ALBUMIN 3.4 g/dL (3.4-5.0); ALKALINE PHOSPHATASE 61 U/L (46-116); ASPARTATE AMINOTRANSFERASE 20 U/L (15-37); BILIRUBIN,TOTAL 0.2 mg/dL (0.1-1.0); THYROID STIMULATING HORMONE 2.26 uIU/mL (0.36-3.74); TOTAL PROTEIN, SERUM 6.7 g/dL (6.4-8.2); VALPROIC ACID 46 mcg/mL (50-100)
[2018-06-17 18:12] LABS: AMPHET/METH SCREEN,URINE NEGATIVE (NEGATIVE); BARBITURATE SCREEN, URINE NEGATIVE (NEGATIVE); BENZODIAZEPINES SCREEN,URINE NEGATIVE (NEGATIVE); CANNABINOID SCREEN,URINE NEGATIVE (NEGATIVE); COCAINE SCREEN,URINE NEGATIVE (NEGATIVE); METHADONE SCREEN, URINE NEGATIVE (NEGATIVE); OPIATE SCREEN,URINE NEGATIVE (NEGATIVE)
[2018-06-17 18:41] LABS: PHENCYCLIDINE SCREEN,URINE NEGATIVE (NEGATIVE)
[2018-06-18] MEDS ORDERED: PNEUMOCOCCAL VACCINE POLYVALENT 0.5 ML VIAL [PPSV23] IM ONE (00:30)
[2018-06-18 00:37] VITALS: BP 145/88
[2018-06-18 01:59] LABS: APPEARANCE,URINE CLEAR (CLEAR); BILIRUBIN,URINE NEGATIVE (NEGATIVE); GLUCOSE, URINE (UA) NEGATIVE (NEGATIVE); KETONES,URINE NEGATIVE (NEGATIVE); LEUKOCYTE ESTERASE ,URINE NEGATIVE (NEGATIVE); NITRATE,URINE NEGATIVE (NEGATIVE); OCCULT BLOOD,URINE NEGATIVE (NEGATIVE); PH,URINE 6.5 (5.0-8.0); PROTEIN,URINE NEGATIVE (NEGATIVE)
[2018-06-18 07:21] LABS: FREE T4 (FREE THYROXINE) 0.79 ng/dL (0.76-1.46); THYROID STIMULATING HORMONE 3.89 uIU/mL (0.36-3.74)
[2018-06-18] MEDS ORDERED: LOPERAMIDE HCL 2 MG CAPSULE PO PRN (07:30)
[2018-06-18] MEDS ORDERED: ONDANSETRON HCL 4 MG TABLET PO PRN (07:30)
[2018-06-18] MEDS ORDERED: CloNIDine HCL 0.1 MG TABLET PO PRN (07:30)
[2018-06-18] MEDS ORDERED: ALBUTEROL SULFATE HFA 90 MCG/PUFF 8 GM INHALER IH PRN (07:30)
[2018-06-18] MEDS ORDERED: PETROLATUM,WHITE 71 GM JELLY TP PRN (07:30)
[2018-06-18] MEDS ORDERED: MAGNESIUM HYDROXIDE SUSPENSION 30 ML UDCUP PO PRN (07:30)
[2018-06-18 08:07] VITALS: BP 123/96
[2018-06-18] MEDS: HALOPERIDOL 5 MG TABLET PO PRN ×2 (08:12→16:30)
[2018-06-18] MEDS: LORazepam 2 MG TABLET PO PRN ×2 (08:12→16:14)
[2018-06-18] MEDS: NICOTINE 14 MG/24 HOUR PATCH TD SCH (08:13)
[2018-06-18] MEDS: DIVALPROEX SODIUM 500 MG ER TABLET PO SCH ×4 (09:21→16:15)
[2018-06-18] MEDS: QUEtiapine FUMARATE 100 MG TABLET PO SCH (09:22)
[2018-06-18] MEDS: BENZTROPINE MESYLATE 2 MG TABLET PO SCH ×2 (09:22→21:55)
[2018-06-18 16:27] VITALS: BP 119/75
[2018-06-18] MEDS: QUEtiapine FUMARATE 200 MG TABLET PO SCH (21:55)
[2018-06-18] MEDS: ZOLPIDEM TARTRATE 10 MG TABLET PO PRN (22:47)
[2018-06-19] MEDS: HALOPERIDOL 5 MG TABLET PO PRN ×3 (03:42→23:42)
[2018-06-19] MEDS: LORazepam 2 MG TABLET PO PRN ×4 (03:42→23:42)
[2018-06-19] MEDS: LEVOTHYROXINE SODIUM 50 MCG TABLET PO SCH (06:15)
[2018-06-19 06:17] LABS: HEMOGLOBIN A1C 5.5 % (4.5-6.2)
[2018-06-19 06:27] LABS: CHOL/HDL RATIO 4.5 (4.2-7.3)
[2018-06-19] MEDS: QUEtiapine FUMARATE 100 MG TABLET PO SCH (08:09)
[2018-06-19] MEDS: BENZTROPINE MESYLATE 2 MG TABLET PO SCH ×2 (08:09→21:45)
[2018-06-19] MEDS: DIVALPROEX SODIUM 500 MG ER TABLET PO SCH ×3 (08:09→16:16)
[2018-06-19] MEDS: OXYBUTYNIN CHLORIDE 5 MG TABLET PO SCH (08:09)
[2018-06-19] MEDS: NICOTINE 14 MG/24 HOUR PATCH TD SCH (08:11)
[2018-06-19 17:38] VITALS: BP 148/92
[2018-06-19] MEDS: QUEtiapine FUMARATE 200 MG TABLET PO SCH (21:45)
[2018-06-19] MEDS: ZOLPIDEM TARTRATE 10 MG TABLET PO PRN (21:46)
[2018-06-20 00:10] VITALS: BP 134/89
[2018-06-20] MEDS: LEVOTHYROXINE SODIUM 50 MCG TABLET PO SCH (06:39)
[2018-06-20] MEDS: QUEtiapine FUMARATE 100 MG TABLET PO SCH (08:04)
[2018-06-20] MEDS: BENZTROPINE MESYLATE 2 MG TABLET PO SCH ×2 (08:04→20:38)
[2018-06-20] MEDS: DIVALPROEX SODIUM 500 MG ER TABLET PO SCH ×3 (08:04→16:22)
[2018-06-20] MEDS: OXYBUTYNIN CHLORIDE 5 MG TABLET PO SCH (08:04)
[2018-06-20] MEDS: LORazepam 2 MG TABLET PO PRN ×2 (08:04→12:32)
[2018-06-20] MEDS: NICOTINE 14 MG/24 HOUR PATCH TD SCH (08:08)
[2018-06-20 09:13] VITALS: BP 135/61
[2018-06-20] MEDS: HALOPERIDOL 5 MG TABLET PO PRN ×2 (09:33→14:16)
[2018-06-20 17:16] VITALS: BP 148/88
[2018-06-20] MEDS: QUEtiapine FUMARATE 200 MG TABLET PO SCH (20:38)
[2018-06-20] MEDS: ZOLPIDEM TARTRATE 10 MG TABLET PO PRN (20:39)
[2018-06-21 00:15] VITALS: BP 144/85
[2018-06-21] MEDS: ACETAMINOPHEN 325 MG TABLET PO PRN (01:46)
[2018-06-21] MEDS: LORazepam 2 MG TABLET PO PRN ×2 (03:58→16:38)
[2018-06-21] MEDS: LEVOTHYROXINE SODIUM 50 MCG TABLET PO SCH (06:41)
[2018-06-21] MEDS: BENZTROPINE MESYLATE 2 MG TABLET PO SCH ×2 (08:28→21:43)
[2018-06-21] MEDS: OXYBUTYNIN CHLORIDE 5 MG TABLET PO SCH (08:29)
[2018-06-21] MEDS: QUEtiapine FUMARATE 100 MG TABLET PO SCH (08:29)
[2018-06-21] MEDS: DIVALPROEX SODIUM 500 MG ER TABLET PO SCH ×3 (08:29→16:23)
[2018-06-21] MEDS: NICOTINE 14 MG/24 HOUR PATCH TD SCH (08:29)
[2018-06-21 10:30] VITALS: BP 134/96
[2018-06-21 16:39] VITALS: BP 130/91
[2018-06-21] MEDS: HALOPERIDOL 5 MG TABLET PO PRN (16:39)
[2018-06-21] MEDS: QUEtiapine FUMARATE 200 MG TABLET PO SCH (21:43)
[2018-06-21] MEDS: ZOLPIDEM TARTRATE 10 MG TABLET PO PRN (22:59)
[2018-06-22] MEDS: LORazepam 2 MG TABLET PO PRN ×2 (00:45→12:13)
[2018-06-22] MEDS: HALOPERIDOL 5 MG TABLET PO PRN ×2 (00:45→12:13)
[2018-06-22] MEDS: LEVOTHYROXINE SODIUM 50 MCG TABLET PO SCH (06:59)
[2018-06-22] MEDS: OXYBUTYNIN CHLORIDE 5 MG TABLET PO SCH (07:32)
[2018-06-22] MEDS: BENZTROPINE MESYLATE 2 MG TABLET PO SCH ×2 (07:33→20:24)
[2018-06-22] MEDS: QUEtiapine FUMARATE 100 MG TABLET PO SCH (07:33)
[2018-06-22] MEDS: DIVALPROEX SODIUM 500 MG ER TABLET PO SCH ×3 (07:33→16:29)
[2018-06-22] MEDS: NICOTINE 14 MG/24 HOUR PATCH TD SCH (07:34)
[2018-06-22 12:02] VITALS: BP 132/94
[2018-06-22] MEDS: QUEtiapine FUMARATE 200 MG TABLET PO SCH (20:24)
[2018-06-22] MEDS: ZOLPIDEM TARTRATE 10 MG TABLET PO PRN (20:25)
[2018-06-22 22:24] VITALS: BP 141/89
[2018-06-23] MEDS: LEVOTHYROXINE SODIUM 50 MCG TABLET PO SCH (06:56)
[2018-06-23] MEDS: LORazepam 2 MG TABLET PO PRN ×2 (07:28→13:02)
[2018-06-23] MEDS: OXYBUTYNIN CHLORIDE 5 MG TABLET PO SCH (07:28)
[2018-06-23] MEDS: DIVALPROEX SODIUM 500 MG ER TABLET PO SCH ×3 (07:28→19:20)
[2018-06-23] MEDS: HALOPERIDOL 5 MG TABLET PO PRN ×2 (07:28→13:02)
[2018-06-23] MEDS: QUEtiapine FUMARATE 100 MG TABLET PO SCH (07:28)
[2018-06-23] MEDS: BENZTROPINE MESYLATE 2 MG TABLET PO SCH ×2 (07:28→20:52)
[2018-06-23] MEDS: NICOTINE 14 MG/24 HOUR PATCH TD SCH (07:28)
[2018-06-23 08:00] VITALS: BP 115/80
[2018-06-23 16:16] VITALS: BP 133/80
[2018-06-23] MEDS: QUEtiapine FUMARATE 200 MG TABLET PO SCH (20:53)
[2018-06-24] MEDS: LEVOTHYROXINE SODIUM 50 MCG TABLET PO SCH (06:23)
[2018-06-24] MEDS: OXYBUTYNIN CHLORIDE 5 MG TABLET PO SCH (07:33)
[2018-06-24] MEDS: HALOPERIDOL 5 MG TABLET PO PRN ×2 (07:33→12:25)
[2018-06-24] MEDS: BENZTROPINE MESYLATE 2 MG TABLET PO SCH ×2 (07:33→20:26)
[2018-06-24] MEDS: NICOTINE 14 MG/24 HOUR PATCH TD SCH (07:34)
[2018-06-24] MEDS: QUEtiapine FUMARATE 100 MG TABLET PO SCH (07:34)
[2018-06-24] MEDS: DIVALPROEX SODIUM 500 MG ER TABLET PO SCH ×3 (07:34→16:39)
[2018-06-24] MEDS: LORazepam 2 MG TABLET PO PRN ×2 (07:34→12:25)
[2018-06-24 08:44] VITALS: BP 155/97
[2018-06-24 16:00] VITALS: BP 133/91
[2018-06-24] MEDS: QUEtiapine FUMARATE 200 MG TABLET PO SCH (20:26)
[2018-06-25] MEDS: ZOLPIDEM TARTRATE 10 MG TABLET PO PRN (01:02)
[2018-06-25] MEDS: LORazepam 2 MG TABLET PO PRN (01:02)
[2018-06-25] MEDS: LEVOTHYROXINE SODIUM 50 MCG TABLET PO SCH (06:33)
[2018-06-25] MEDS: BENZTROPINE MESYLATE 2 MG TABLET PO SCH ×2 (09:20→20:29)
[2018-06-25] MEDS: DIVALPROEX SODIUM 500 MG ER TABLET PO SCH ×3 (09:20→17:14)
[2018-06-25] MEDS: QUEtiapine FUMARATE 100 MG TABLET PO SCH (09:20)
[2018-06-25] MEDS: OXYBUTYNIN CHLORIDE 5 MG TABLET PO SCH (09:21)
[2018-06-25] MEDS: NICOTINE 14 MG/24 HOUR PATCH TD SCH (09:29)
[2018-06-25 10:33] VITALS: BP 138/90
[2018-06-25 16:31] VITALS: BP 140/82
[2018-06-25] MEDS: QUEtiapine FUMARATE 200 MG TABLET PO SCH (20:29)
[2018-06-26] MEDS: LEVOTHYROXINE SODIUM 50 MCG TABLET PO SCH (06:51)
[2018-06-26] MEDS: LORazepam 2 MG TABLET PO PRN ×2 (07:40→13:38)
[2018-06-26] MEDS: OXYBUTYNIN CHLORIDE 5 MG TABLET PO SCH (07:40)
[2018-06-26] MEDS: BENZTROPINE MESYLATE 2 MG TABLET PO SCH ×2 (07:40→21:14)
[2018-06-26] MEDS: DIVALPROEX SODIUM 500 MG ER TABLET PO SCH ×3 (07:40→17:04)
[2018-06-26] MEDS: HALOPERIDOL 5 MG TABLET PO PRN ×2 (07:40→13:38)
[2018-06-26] MEDS: QUEtiapine FUMARATE 100 MG TABLET PO SCH (07:40)
[2018-06-26] MEDS: NICOTINE 14 MG/24 HOUR PATCH TD SCH (07:41)
[2018-06-26 08:32] VITALS: BP 164/97
[2018-06-26 16:39] VITALS: BP 128/86
[2018-06-26] MEDS: ZOLPIDEM TARTRATE 10 MG TABLET PO PRN (21:14)
[2018-06-26] MEDS: QUEtiapine FUMARATE 200 MG TABLET PO SCH (21:14)
[2018-06-26] MEDS ORDERED: DiphenhydrAMINE HCL 50 MG/ML VIAL ONE (22:23)
[2018-06-26] MEDS ORDERED: LORazepam 2 MG/ML VIAL ONE (22:23)
[2018-06-26] MEDS ORDERED: HALOPERIDOL LACTATE 5 MG/ML VIAL ONE (22:23)
[2018-06-26] MEDS ORDERED: LORazepam 2 MG/ML VIAL IM ONE (22:30)
[2018-06-26] MEDS ORDERED: HALOPERIDOL LACTATE 5 MG/ML VIAL IM ONE (22:30)
[2018-06-26] MEDS ORDERED: DiphenhydrAMINE HCL 50 MG/ML VIAL IM ONE (22:30)
[2018-06-27] MEDS: LEVOTHYROXINE SODIUM 50 MCG TABLET PO SCH (06:46)
[2018-06-27] MEDS: OXYBUTYNIN CHLORIDE 5 MG TABLET PO SCH (07:16)
[2018-06-27] MEDS: NICOTINE 14 MG/24 HOUR PATCH TD SCH (07:16)
[2018-06-27] MEDS: QUEtiapine FUMARATE 100 MG TABLET PO SCH (07:16)
[2018-06-27] MEDS: BENZTROPINE MESYLATE 2 MG TABLET PO SCH ×2 (07:16→20:01)
[2018-06-27] MEDS: LORazepam 2 MG TABLET PO PRN ×3 (07:16→19:45)
[2018-06-27] MEDS: DIVALPROEX SODIUM 500 MG ER TABLET PO SCH ×3 (07:17→16:08)
[2018-06-27] MEDS: HALOPERIDOL 5 MG TABLET PO PRN ×2 (07:17→12:54)
[2018-06-27 08:39] VITALS: BP 140/64
[2018-06-27] MEDS: QUEtiapine FUMARATE 200 MG TABLET PO SCH (20:01)
[2018-06-27 23:05] VITALS: BP 124/74
[2018-06-28] MEDS: LEVOTHYROXINE SODIUM 50 MCG TABLET PO SCH (06:54)
[2018-06-28] MEDS: DIVALPROEX SODIUM 500 MG ER TABLET PO SCH ×3 (07:50→16:35)
[2018-06-28] MEDS: OXYBUTYNIN CHLORIDE 5 MG TABLET PO SCH (07:50)
[2018-06-28] MEDS: NICOTINE 14 MG/24 HOUR PATCH TD SCH (07:50)
[2018-06-28] MEDS: QUEtiapine FUMARATE 100 MG TABLET PO SCH (07:50)
[2018-06-28] MEDS: BENZTROPINE MESYLATE 2 MG TABLET PO SCH ×2 (07:50→20:22)
[2018-06-28] MEDS: HALOPERIDOL 5 MG TABLET PO PRN ×2 (07:50→11:53)
[2018-06-28] MEDS: LORazepam 2 MG TABLET PO PRN ×2 (07:50→11:53)
[2018-06-28 08:20] VITALS: BP 123/86
[2018-06-28 16:00] VITALS: BP 130/80
[2018-06-28] MEDS: QUEtiapine FUMARATE 200 MG TABLET PO SCH (20:22)
[2018-06-29] MEDS: LORazepam 2 MG TABLET PO PRN ×3 (00:20→12:15)
[2018-06-29] MEDS: ZOLPIDEM TARTRATE 10 MG TABLET PO PRN (00:20)
[2018-06-29] MEDS: LEVOTHYROXINE SODIUM 50 MCG TABLET PO SCH (06:49)
[2018-06-29] MEDS: HALOPERIDOL 5 MG TABLET PO PRN ×2 (07:55→12:16)
[2018-06-29] MEDS: QUEtiapine FUMARATE 100 MG TABLET PO SCH (07:55)
[2018-06-29] MEDS: BENZTROPINE MESYLATE 2 MG TABLET PO SCH ×2 (07:55→20:16)
[2018-06-29] MEDS: DIVALPROEX SODIUM 500 MG ER TABLET PO SCH ×3 (07:55→16:12)
[2018-06-29] MEDS: OXYBUTYNIN CHLORIDE 5 MG TABLET PO SCH (07:55)
[2018-06-29 09:42] VITALS: BP 126/100
[2018-06-29] MEDS: NICOTINE 14 MG/24 HOUR PATCH TD SCH (10:32)
[2018-06-29 16:58] VITALS: BP 133/84
[2018-06-29] MEDS: QUEtiapine FUMARATE 200 MG TABLET PO SCH (20:16)
[2018-06-30 04:05] VITALS: BP 119/76
[2018-06-30] MEDS: LEVOTHYROXINE SODIUM 50 MCG TABLET PO SCH ×2 (06:15→06:23)
[2018-06-30] MEDS: LORazepam 2 MG TABLET PO PRN ×2 (08:12→16:18)
[2018-06-30] MEDS: HALOPERIDOL 5 MG TABLET PO PRN (08:12)
[2018-06-30] MEDS: NICOTINE 14 MG/24 HOUR PATCH TD SCH (08:12)
[2018-06-30] MEDS: BENZTROPINE MESYLATE 2 MG TABLET PO SCH ×2 (08:12→20:19)
[2018-06-30] MEDS: QUEtiapine FUMARATE 100 MG TABLET PO SCH (08:12)
[2018-06-30] MEDS: DIVALPROEX SODIUM 500 MG ER TABLET PO SCH ×3 (08:12→16:18)
[2018-06-30] MEDS: OXYBUTYNIN CHLORIDE 5 MG TABLET PO SCH (08:13)
[2018-06-30 10:51] VITALS: BP 126/84
[2018-06-30 16:30] VITALS: BP 122/73
[2018-06-30] MEDS: ZOLPIDEM TARTRATE 10 MG TABLET PO PRN (20:19)
[2018-06-30] MEDS: QUEtiapine FUMARATE 200 MG TABLET PO SCH (20:19)
[2018-07-01] MEDS: LEVOTHYROXINE SODIUM 50 MCG TABLET PO SCH (06:46)
[2018-07-01] MEDS: QUEtiapine FUMARATE 100 MG TABLET PO SCH (07:57)
[2018-07-01] MEDS: HALOPERIDOL 5 MG TABLET PO PRN ×4 (07:57→18:33)
[2018-07-01] MEDS: DIVALPROEX SODIUM 500 MG ER TABLET PO SCH ×3 (07:57→13:03)
[2018-07-01] MEDS: OXYBUTYNIN CHLORIDE 5 MG TABLET PO SCH (07:57)
[2018-07-01] MEDS: BENZTROPINE MESYLATE 2 MG TABLET PO SCH ×2 (07:57→20:07)
[2018-07-01] MEDS: LORazepam 2 MG TABLET PO PRN ×3 (07:57→13:04)
[2018-07-01] MEDS: NICOTINE 14 MG/24 HOUR PATCH TD SCH (07:58)
[2018-07-01 08:30] VITALS: BP 135/83
[2018-07-01 16:30] VITALS: BP 129/82
[2018-07-01] MEDS: QUEtiapine FUMARATE 200 MG TABLET PO SCH (20:07)
[2018-07-02 00:05] VITALS: BP 121/72
[2018-07-02] MEDS: LEVOTHYROXINE SODIUM 50 MCG TABLET PO SCH (06:48)
[2018-07-02] MEDS: DIVALPROEX SODIUM 500 MG ER TABLET PO SCH ×3 (08:05→16:03)
[2018-07-02] MEDS: OXYBUTYNIN CHLORIDE 5 MG TABLET PO SCH (08:05)
[2018-07-02] MEDS: BENZTROPINE MESYLATE 2 MG TABLET PO SCH ×2 (08:05→21:12)
[2018-07-02] MEDS: NICOTINE 14 MG/24 HOUR PATCH TD SCH (08:06)
[2018-07-02] MEDS: QUEtiapine FUMARATE 100 MG TABLET PO SCH (08:06)
[2018-07-02 08:38] VITALS: BP 112/80
[2018-07-02] MEDS: LORazepam 2 MG TABLET PO PRN (16:03)
[2018-07-02] MEDS ORDERED: LORazepam 2 MG/ML VIAL IM ONE (18:15)
[2018-07-02] MEDS ORDERED: HALOPERIDOL LACTATE 5 MG/ML VIAL IM ONE (18:15)
[2018-07-02] MEDS: QUEtiapine FUMARATE 200 MG TABLET PO SCH (21:12)
[2018-07-02 21:27] VITALS: BP 135/84
[2018-07-03] MEDS: LEVOTHYROXINE SODIUM 50 MCG TABLET PO SCH (06:49)
[2018-07-03] MEDS: HALOPERIDOL 5 MG TABLET PO PRN (08:11)
[2018-07-03] MEDS: QUEtiapine FUMARATE 100 MG TABLET PO SCH ×2 (08:11→16:02)
[2018-07-03] MEDS: BENZTROPINE MESYLATE 2 MG TABLET PO SCH ×2 (08:11→20:25)
[2018-07-03] MEDS: DIVALPROEX SODIUM 500 MG ER TABLET PO SCH (08:11)
[2018-07-03] MEDS: OXYBUTYNIN CHLORIDE 5 MG TABLET PO SCH (08:11)
[2018-07-03] MEDS: LORazepam 2 MG TABLET PO PRN ×2 (08:11→16:03)
[2018-07-03 08:25] VITALS: BP 103/64
[2018-07-03] MEDS: NICOTINE 14 MG/24 HOUR PATCH TD SCH (09:00)
[2018-07-03] MEDS: DIVALPROEX SODIUM 250 MG ER TABLET PO SCH ×2 (12:28→16:02)
[2018-07-03 16:00] VITALS: BP 119/72
[2018-07-03] MEDS: QUEtiapine FUMARATE 200 MG TABLET PO SCH (20:25)
[2018-07-03] MEDS: ZOLPIDEM TARTRATE 10 MG TABLET PO PRN (21:10)
[2018-07-04] MEDS: HALOPERIDOL 5 MG TABLET PO PRN ×3 (02:00→12:32)
[2018-07-04] MEDS: LORazepam 2 MG TABLET PO PRN ×3 (02:00→12:32)
[2018-07-04] MEDS: LEVOTHYROXINE SODIUM 50 MCG TABLET PO SCH (07:00)
[2018-07-04] MEDS: BENZTROPINE MESYLATE 2 MG TABLET PO SCH ×2 (08:29→20:17)
[2018-07-04] MEDS: DIVALPROEX SODIUM 250 MG ER TABLET PO SCH ×3 (08:29→16:10)
[2018-07-04] MEDS: OXYBUTYNIN CHLORIDE 5 MG TABLET PO SCH (08:29)
[2018-07-04] MEDS: NICOTINE 14 MG/24 HOUR PATCH TD SCH (08:30)
[2018-07-04] MEDS: QUEtiapine FUMARATE 100 MG TABLET PO SCH ×2 (08:30→16:11)
[2018-07-04 09:03] VITALS: BP 147/96
[2018-07-04 16:30] VITALS: BP 130/90
[2018-07-04] MEDS: QUEtiapine FUMARATE 200 MG TABLET PO SCH (20:17)
[2018-07-05] MEDS: LEVOTHYROXINE SODIUM 50 MCG TABLET PO SCH (06:44)
[2018-07-05] MEDS: HALOPERIDOL 5 MG TABLET PO PRN (07:41)
[2018-07-05] MEDS: LORazepam 2 MG TABLET PO PRN (07:41)
[2018-07-05] MEDS: OXYBUTYNIN CHLORIDE 5 MG TABLET PO SCH (08:16)
[2018-07-05] MEDS: BENZTROPINE MESYLATE 2 MG TABLET PO SCH ×2 (08:16→20:23)
[2018-07-05] MEDS: QUEtiapine FUMARATE 100 MG TABLET PO SCH ×2 (08:16→16:12)
[2018-07-05] MEDS: DIVALPROEX SODIUM 250 MG ER TABLET PO SCH ×3 (08:16→16:12)
[2018-07-05 08:57] VITALS: BP 142/76
[2018-07-05] MEDS: NICOTINE 14 MG/24 HOUR PATCH TD SCH (09:00)
[2018-07-05 16:27] VITALS: BP 130/82
[2018-07-05] MEDS: QUEtiapine FUMARATE 200 MG TABLET PO SCH (20:23)
[2018-07-06] MEDS: LEVOTHYROXINE SODIUM 50 MCG TABLET PO SCH (06:52)
[2018-07-06] MEDS: BENZTROPINE MESYLATE 2 MG TABLET PO SCH ×2 (08:21→21:06)
[2018-07-06] MEDS: QUEtiapine FUMARATE 100 MG TABLET PO SCH ×2 (08:21→16:31)
[2018-07-06] MEDS: OXYBUTYNIN CHLORIDE 5 MG TABLET PO SCH (08:22)
[2018-07-06] MEDS: DIVALPROEX SODIUM 250 MG ER TABLET PO SCH ×3 (08:22→16:31)
[2018-07-06] MEDS: NICOTINE 14 MG/24 HOUR PATCH TD SCH (08:23)
[2018-07-06] MEDS: DOCUSATE SODIUM 100 MG CAPSULE PO PRN (08:27)
[2018-07-06 12:43] VITALS: BP 127/79
[2018-07-06 16:18] VITALS: BP 131/81
[2018-07-06] MEDS: LORazepam 2 MG TABLET PO PRN ×2 (16:31→23:47)
[2018-07-06 19:25] VITALS: BP 140/77
[2018-07-06] MEDS: QUEtiapine FUMARATE 200 MG TABLET PO SCH (21:06)
[2018-07-06] MEDS: ZOLPIDEM TARTRATE 10 MG TABLET PO PRN (23:48)
[2018-07-07] MEDS: LEVOTHYROXINE SODIUM 50 MCG TABLET PO SCH (07:00)
[2018-07-07] MEDS: BENZTROPINE MESYLATE 2 MG TABLET PO SCH ×2 (07:57→20:06)
[2018-07-07] MEDS: QUEtiapine FUMARATE 100 MG TABLET PO SCH ×2 (07:58→16:30)
[2018-07-07] MEDS: OXYBUTYNIN CHLORIDE 5 MG TABLET PO SCH (07:58)
[2018-07-07] MEDS: DIVALPROEX SODIUM 250 MG ER TABLET PO SCH ×3 (07:58→16:30)
[2018-07-07] MEDS: LORazepam 2 MG TABLET PO PRN (07:58)
[2018-07-07] MEDS: NICOTINE 14 MG/24 HOUR PATCH TD SCH (09:00)
[2018-07-07 09:15] VITALS: BP 134/82
[2018-07-07 16:00] VITALS: BP 131/95
[2018-07-07] MEDS: QUEtiapine FUMARATE 200 MG TABLET PO SCH (20:06)
[2018-07-08] MEDS: LEVOTHYROXINE SODIUM 50 MCG TABLET PO SCH ×2 (07:00→07:47)
[2018-07-08] MEDS: QUEtiapine FUMARATE 100 MG TABLET PO SCH ×2 (07:46→17:15)
[2018-07-08] MEDS: BENZTROPINE MESYLATE 2 MG TABLET PO SCH ×2 (07:46→20:06)
[2018-07-08] MEDS: OXYBUTYNIN CHLORIDE 5 MG TABLET PO SCH (07:48)
[2018-07-08] MEDS: DIVALPROEX SODIUM 250 MG ER TABLET PO SCH ×3 (07:48→17:15)
[2018-07-08] MEDS: NICOTINE 14 MG/24 HOUR PATCH TD SCH (07:49)
[2018-07-08] MEDS: LORazepam 2 MG TABLET PO PRN (08:17)
[2018-07-08 08:29] VITALS: BP 132/76
[2018-07-08] MEDS: HALOPERIDOL 5 MG TABLET PO PRN (08:47)
[2018-07-08 20:06] VITALS: BP 138/92
[2018-07-08] MEDS: QUEtiapine FUMARATE 200 MG TABLET PO SCH (20:06)
[2018-07-09] MEDS: BENZTROPINE MESYLATE 2 MG TABLET PO SCH ×2 (07:50→21:49)
[2018-07-09] MEDS: QUEtiapine FUMARATE 100 MG TABLET PO SCH ×2 (07:50→16:48)
[2018-07-09] MEDS: DIVALPROEX SODIUM 250 MG ER TABLET PO SCH ×3 (07:51→16:48)
[2018-07-09] MEDS: OXYBUTYNIN CHLORIDE 5 MG TABLET PO SCH (07:51)
[2018-07-09] MEDS: LORazepam 2 MG TABLET PO PRN ×2 (07:54→19:44)
[2018-07-09] MEDS: NICOTINE 14 MG/24 HOUR PATCH TD SCH (09:00)
[2018-07-09 11:52] VITALS: BP 137/76
[2018-07-09 16:30] VITALS: BP 118/72
[2018-07-09] MEDS: QUEtiapine FUMARATE 200 MG TABLET PO SCH (21:49)
[2018-07-10] MEDS: LEVOTHYROXINE SODIUM 50 MCG TABLET PO SCH (06:53)
[2018-07-10] MEDS: QUEtiapine FUMARATE 100 MG TABLET PO SCH ×2 (08:21→17:01)
[2018-07-10] MEDS: OXYBUTYNIN CHLORIDE 5 MG TABLET PO SCH (08:21)
[2018-07-10] MEDS: BENZTROPINE MESYLATE 2 MG TABLET PO SCH ×2 (08:21→20:00)
[2018-07-10] MEDS: DIVALPROEX SODIUM 250 MG ER TABLET PO SCH ×3 (08:22→17:01)
[2018-07-10] MEDS: NICOTINE 14 MG/24 HOUR PATCH TD SCH (08:22)
[2018-07-10 08:28] VITALS: BP 136/82
[2018-07-10] MEDS: LORazepam 2 MG TABLET PO PRN ×2 (13:51→20:13)
[2018-07-10] MEDS: HALOPERIDOL 5 MG TABLET PO PRN ×2 (13:51→20:12)
[2018-07-10 16:30] VITALS: BP 140/79
[2018-07-10] MEDS: QUEtiapine FUMARATE 200 MG TABLET PO SCH (20:00)
[2018-07-11] MEDS: LEVOTHYROXINE SODIUM 50 MCG TABLET PO SCH (07:00)
[2018-07-11] MEDS: QUEtiapine FUMARATE 100 MG TABLET PO SCH ×2 (08:09→16:08)
[2018-07-11] MEDS: OXYBUTYNIN CHLORIDE 5 MG TABLET PO SCH (08:09)
[2018-07-11] MEDS: BENZTROPINE MESYLATE 2 MG TABLET PO SCH ×2 (08:09→20:24)
[2018-07-11] MEDS: DIVALPROEX SODIUM 250 MG ER TABLET PO SCH ×3 (08:10→16:08)
[2018-07-11] MEDS: LORazepam 2 MG TABLET PO PRN ×2 (08:11→17:17)
[2018-07-11 08:13] VITALS: BP 130/63
[2018-07-11] MEDS: NICOTINE 14 MG/24 HOUR PATCH TD SCH (08:13)
[2018-07-11 16:00] VITALS: BP 132/82
[2018-07-11] MEDS: QUEtiapine FUMARATE 200 MG TABLET PO SCH (20:24)
[2018-07-12 02:33] VITALS: BP 124/86
[2018-07-12] MEDS: LEVOTHYROXINE SODIUM 50 MCG TABLET PO SCH (06:39)
[2018-07-12] MEDS: BENZTROPINE MESYLATE 2 MG TABLET PO SCH ×2 (07:51→20:21)
[2018-07-12] MEDS: QUEtiapine FUMARATE 100 MG TABLET PO SCH ×2 (07:51→16:09)
[2018-07-12] MEDS: OXYBUTYNIN CHLORIDE 5 MG TABLET PO SCH (07:51)
[2018-07-12] MEDS: DIVALPROEX SODIUM 250 MG ER TABLET PO SCH ×3 (07:52→16:09)
[2018-07-12] MEDS: LORazepam 2 MG TABLET PO PRN ×2 (07:52→22:51)
[2018-07-12 08:18] VITALS: BP 123/76
[2018-07-12] MEDS: NICOTINE 14 MG/24 HOUR PATCH TD SCH (09:00)
[2018-07-12] MEDS: SERTRALINE HCL 50 MG TABLET PO SCH (12:16)
[2018-07-12 16:00] VITALS: BP 131/90
[2018-07-12] MEDS: QUEtiapine FUMARATE 200 MG TABLET PO SCH (20:21)
[2018-07-13] MEDS: LEVOTHYROXINE SODIUM 50 MCG TABLET PO SCH (06:13)
[2018-07-13] MEDS: BENZTROPINE MESYLATE 2 MG TABLET PO SCH ×2 (08:03→20:08)
[2018-07-13] MEDS: QUEtiapine FUMARATE 100 MG TABLET PO SCH ×2 (08:04→17:22)
[2018-07-13] MEDS: DIVALPROEX SODIUM 250 MG ER TABLET PO SCH ×3 (08:04→17:22)
[2018-07-13] MEDS: SERTRALINE HCL 50 MG TABLET PO SCH (08:04)
[2018-07-13] MEDS: OXYBUTYNIN CHLORIDE 5 MG TABLET PO SCH (08:04)
[2018-07-13 08:24] VITALS: BP 119/98
[2018-07-13] MEDS: NICOTINE 14 MG/24 HOUR PATCH TD SCH (09:00)
[2018-07-13 17:22] VITALS: BP 126/89
[2018-07-13] MEDS: LORazepam 2 MG TABLET PO PRN (17:25)
[2018-07-13] MEDS: QUEtiapine FUMARATE 200 MG TABLET PO SCH (20:08)
[2018-07-13] MEDS: ZOLPIDEM TARTRATE 10 MG TABLET PO PRN (21:33)
[2018-07-14] MEDS: LEVOTHYROXINE SODIUM 50 MCG TABLET PO SCH (06:50)
[2018-07-14] MEDS: BENZTROPINE MESYLATE 2 MG TABLET PO SCH ×2 (07:53→20:12)
[2018-07-14] MEDS: DIVALPROEX SODIUM 250 MG ER TABLET PO SCH ×3 (07:53→17:26)
[2018-07-14] MEDS: OXYBUTYNIN CHLORIDE 5 MG TABLET PO SCH (07:53)
[2018-07-14] MEDS: SERTRALINE HCL 50 MG TABLET PO SCH (07:53)
[2018-07-14] MEDS: QUEtiapine FUMARATE 100 MG TABLET PO SCH ×2 (07:53→17:26)
[2018-07-14] MEDS: NICOTINE 14 MG/24 HOUR PATCH TD SCH (07:55)
[2018-07-14 08:17] VITALS: BP 128/68
[2018-07-14] MEDS: LORazepam 2 MG TABLET PO PRN (12:13)
[2018-07-14] MEDS: ACETAMINOPHEN 325 MG TABLET PO PRN (13:16)
[2018-07-14 17:23] VITALS: BP 142/81
[2018-07-14] MEDS: ZOLPIDEM TARTRATE 10 MG TABLET PO PRN (20:12)
[2018-07-14] MEDS: QUEtiapine FUMARATE 200 MG TABLET PO SCH (20:12)
[2018-07-15] MEDS: LEVOTHYROXINE SODIUM 50 MCG TABLET PO SCH (06:59)
[2018-07-15] MEDS: BENZTROPINE MESYLATE 2 MG TABLET PO SCH ×2 (08:38→20:17)
[2018-07-15] MEDS: DIVALPROEX SODIUM 250 MG ER TABLET PO SCH ×3 (08:38→16:55)
[2018-07-15] MEDS: SERTRALINE HCL 50 MG TABLET PO SCH (08:38)
[2018-07-15] MEDS: OXYBUTYNIN CHLORIDE 5 MG TABLET PO SCH (08:39)
[2018-07-15] MEDS: QUEtiapine FUMARATE 100 MG TABLET PO SCH ×2 (08:39→16:55)
[2018-07-15] MEDS: NICOTINE 14 MG/24 HOUR PATCH TD SCH (09:00)
[2018-07-15] MEDS: ACETAMINOPHEN 325 MG TABLET PO PRN (09:06)
[2018-07-15 09:18] VITALS: BP 129/97
[2018-07-15] MEDS: HALOPERIDOL 5 MG TABLET PO PRN (10:42)
[2018-07-15] MEDS: LORazepam 2 MG TABLET PO PRN (10:43)
[2018-07-15] MEDS: QUEtiapine FUMARATE 200 MG TABLET PO SCH (20:17)
[2018-07-15] MEDS: ZOLPIDEM TARTRATE 10 MG TABLET PO PRN (20:17)
[2018-07-16] MEDS: LEVOTHYROXINE SODIUM 50 MCG TABLET PO SCH (06:54)
[2018-07-16 08:28] VITALS: BP 126/83
[2018-07-16] MEDS: NICOTINE 14 MG/24 HOUR PATCH TD SCH (09:00)
[2018-07-16] MEDS: BENZTROPINE MESYLATE 2 MG TABLET PO SCH ×2 (09:02→20:16)
[2018-07-16] MEDS: DIVALPROEX SODIUM 250 MG ER TABLET PO SCH ×3 (09:02→16:29)
[2018-07-16] MEDS: OXYBUTYNIN CHLORIDE 5 MG TABLET PO SCH (09:02)
[2018-07-16] MEDS: SERTRALINE HCL 50 MG TABLET PO SCH (09:03)
[2018-07-16] MEDS: QUEtiapine FUMARATE 100 MG TABLET PO SCH ×2 (09:03→16:29)
[2018-07-16] MEDS: HALOPERIDOL 5 MG TABLET PO PRN (18:15)
[2018-07-16] MEDS: LORazepam 2 MG TABLET PO PRN (18:15)
[2018-07-16] MEDS: QUEtiapine FUMARATE 200 MG TABLET PO SCH (20:16)
[2018-07-16 22:58] VITALS: BP 121/64
[2018-07-17] MEDS: LEVOTHYROXINE SODIUM 50 MCG TABLET PO SCH (06:49)
[2018-07-17] MEDS: BENZTROPINE MESYLATE 2 MG TABLET PO SCH ×2 (08:13→21:41)
[2018-07-17] MEDS: QUEtiapine FUMARATE 100 MG TABLET PO SCH ×2 (08:14→16:05)
[2018-07-17] MEDS: DIVALPROEX SODIUM 250 MG ER TABLET PO SCH ×3 (08:14→16:05)
[2018-07-17] MEDS: OXYBUTYNIN CHLORIDE 5 MG TABLET PO SCH (08:14)
[2018-07-17] MEDS: SERTRALINE HCL 50 MG TABLET PO SCH (08:14)
[2018-07-17] MEDS: NICOTINE 14 MG/24 HOUR PATCH TD SCH (08:15)
[2018-07-17 08:36] VITALS: BP 134/81
[2018-07-17] MEDS: HALOPERIDOL 5 MG TABLET PO PRN (16:05)
[2018-07-17] MEDS: LORazepam 2 MG TABLET PO PRN (16:05)
[2018-07-17 17:10] VITALS: BP 129/86
[2018-07-17] MEDS: QUEtiapine FUMARATE 200 MG TABLET PO SCH (21:41)
[2018-07-18] MEDS: ZOLPIDEM TARTRATE 10 MG TABLET PO PRN ×2 (02:11→21:00)
[2018-07-18] MEDS: LORazepam 2 MG TABLET PO PRN ×2 (02:11→20:31)
[2018-07-18] MEDS: LEVOTHYROXINE SODIUM 50 MCG TABLET PO SCH (06:43)
[2018-07-18] MEDS: SERTRALINE HCL 50 MG TABLET PO SCH (08:08)
[2018-07-18] MEDS: QUEtiapine FUMARATE 100 MG TABLET PO SCH ×2 (08:08→16:18)
[2018-07-18] MEDS: BENZTROPINE MESYLATE 2 MG TABLET PO SCH ×2 (08:08→20:31)
[2018-07-18] MEDS: OXYBUTYNIN CHLORIDE 5 MG TABLET PO SCH (08:09)
[2018-07-18] MEDS: DIVALPROEX SODIUM 250 MG ER TABLET PO SCH ×3 (08:09→16:18)
[2018-07-18] MEDS: NICOTINE 14 MG/24 HOUR PATCH TD SCH (08:10)
[2018-07-18 08:35] VITALS: BP 154/96
[2018-07-18 16:55] VITALS: BP 139/85
[2018-07-18] MEDS: QUEtiapine FUMARATE 200 MG TABLET PO SCH (20:31)
[2018-07-19] MEDS: LEVOTHYROXINE SODIUM 50 MCG TABLET PO SCH (06:45)
[2018-07-19] MEDS: BENZTROPINE MESYLATE 2 MG TABLET PO SCH ×2 (08:06→20:30)
[2018-07-19] MEDS: SERTRALINE HCL 50 MG TABLET PO SCH (08:06)
[2018-07-19] MEDS: QUEtiapine FUMARATE 100 MG TABLET PO SCH ×2 (08:06→17:01)
[2018-07-19] MEDS: DIVALPROEX SODIUM 250 MG ER TABLET PO SCH ×3 (08:07→17:01)
[2018-07-19] MEDS: OXYBUTYNIN CHLORIDE 5 MG TABLET PO SCH (08:07)
[2018-07-19] MEDS: NICOTINE 14 MG/24 HOUR PATCH TD SCH (08:07)
[2018-07-19 08:28] VITALS: BP 127/83
[2018-07-19] MEDS: LORazepam 2 MG TABLET PO PRN ×2 (09:16→17:51)
[2018-07-19] MEDS: HALOPERIDOL 5 MG TABLET PO PRN ×2 (09:16→17:51)
[2018-07-19 18:13] VITALS: BP 120/79
[2018-07-19] MEDS: QUEtiapine FUMARATE 200 MG TABLET PO SCH (20:30)
[2018-07-19] MEDS: ZOLPIDEM TARTRATE 10 MG TABLET PO PRN (21:08)
[2018-07-20] MEDS: LEVOTHYROXINE SODIUM 50 MCG TABLET PO SCH (07:00)
[2018-07-20 08:00] VITALS: BP 123/81
[2018-07-20] MEDS: NICOTINE 14 MG/24 HOUR PATCH TD SCH (09:10)
[2018-07-20] MEDS: OXYBUTYNIN CHLORIDE 5 MG TABLET PO SCH (09:11)
[2018-07-20] MEDS: SERTRALINE HCL 50 MG TABLET PO SCH (09:11)
[2018-07-20] MEDS: QUEtiapine FUMARATE 100 MG TABLET PO SCH ×2 (09:11→16:58)
[2018-07-20] MEDS: DIVALPROEX SODIUM 250 MG ER TABLET PO SCH ×3 (09:11→16:58)
[2018-07-20] MEDS: BENZTROPINE MESYLATE 2 MG TABLET PO SCH ×2 (09:11→21:52)
[2018-07-20 16:00] VITALS: BP 123/84
[2018-07-20] MEDS: QUEtiapine FUMARATE 200 MG TABLET PO SCH (20:55)
[2018-07-20] MEDS: ZOLPIDEM TARTRATE 10 MG TABLET PO PRN (22:00)
[2018-07-21] MEDS: LEVOTHYROXINE SODIUM 50 MCG TABLET PO SCH (07:00)
[2018-07-21 08:26] VITALS: BP 150/78
[2018-07-21] MEDS: BENZTROPINE MESYLATE 2 MG TABLET PO SCH ×2 (08:26→20:17)
[2018-07-21] MEDS: DIVALPROEX SODIUM 250 MG ER TABLET PO SCH ×3 (08:26→16:58)
[2018-07-21] MEDS: OXYBUTYNIN CHLORIDE 5 MG TABLET PO SCH (08:26)
[2018-07-21] MEDS: SERTRALINE HCL 50 MG TABLET PO SCH (08:26)
[2018-07-21] MEDS: QUEtiapine FUMARATE 100 MG TABLET PO SCH ×2 (08:26→16:58)
[2018-07-21] MEDS: NICOTINE 14 MG/24 HOUR PATCH TD SCH (08:31)
[2018-07-21] MEDS: HALOPERIDOL 5 MG TABLET PO PRN (09:51)
[2018-07-21] MEDS: LORazepam 2 MG TABLET PO PRN (09:51)
[2018-07-21 16:30] VITALS: BP 134/86
[2018-07-21] MEDS: QUEtiapine FUMARATE 200 MG TABLET PO SCH (20:17)
[2018-07-22] MEDS: LEVOTHYROXINE SODIUM 50 MCG TABLET PO SCH (06:18)
[2018-07-22 08:00] VITALS: BP 123/87
[2018-07-22] MEDS: SERTRALINE HCL 50 MG TABLET PO SCH (08:00)
[2018-07-22] MEDS: BENZTROPINE MESYLATE 2 MG TABLET PO SCH ×2 (08:00→20:55)
[2018-07-22] MEDS: HALOPERIDOL 5 MG TABLET PO PRN ×2 (08:00→14:02)
[2018-07-22] MEDS: NICOTINE 14 MG/24 HOUR PATCH TD SCH (08:00)
[2018-07-22] MEDS: OXYBUTYNIN CHLORIDE 5 MG TABLET PO SCH (08:00)
[2018-07-22] MEDS: LORazepam 2 MG TABLET PO PRN ×2 (08:00→14:02)
[2018-07-22] MEDS: QUEtiapine FUMARATE 100 MG TABLET PO SCH ×2 (08:00→17:30)
[2018-07-22] MEDS: DIVALPROEX SODIUM 250 MG ER TABLET PO SCH ×3 (08:01→17:30)
[2018-07-22 16:50] VITALS: BP 123/87
[2018-07-22] MEDS: QUEtiapine FUMARATE 300 MG TABLET PO SCH (20:55)
[2018-07-23] MEDS: LORazepam 2 MG TABLET PO PRN ×2 (00:03→23:39)
[2018-07-23] MEDS: ZOLPIDEM TARTRATE 10 MG TABLET PO PRN ×2 (00:03→23:39)
[2018-07-23 01:06] VITALS: BP 123/77
[2018-07-23] MEDS: LEVOTHYROXINE SODIUM 50 MCG TABLET PO SCH (06:59)
[2018-07-23] MEDS: QUEtiapine FUMARATE 100 MG TABLET PO SCH ×2 (08:10→17:23)
[2018-07-23] MEDS: SERTRALINE HCL 50 MG TABLET PO SCH (08:10)
[2018-07-23] MEDS: BENZTROPINE MESYLATE 2 MG TABLET PO SCH ×2 (08:10→21:32)
[2018-07-23] MEDS: OXYBUTYNIN CHLORIDE 5 MG TABLET PO SCH (08:11)
[2018-07-23] MEDS: NICOTINE 14 MG/24 HOUR PATCH TD SCH (08:11)
[2018-07-23] MEDS: DIVALPROEX SODIUM 250 MG ER TABLET PO SCH ×3 (08:11→17:24)
[2018-07-23 09:30] VITALS: BP 139/95
[2018-07-23 17:26] VITALS: BP 128/88
[2018-07-23] MEDS: QUEtiapine FUMARATE 300 MG TABLET PO SCH (21:32)
[2018-07-24 00:08] VITALS: BP 140/85
[2018-07-24] MEDS: LEVOTHYROXINE SODIUM 50 MCG TABLET PO SCH (07:00)
[2018-07-24 08:00] VITALS: BP 123/71
[2018-07-24] MEDS: NICOTINE 14 MG/24 HOUR PATCH TD SCH (08:16)
[2018-07-24] MEDS: BENZTROPINE MESYLATE 2 MG TABLET PO SCH ×2 (08:17→20:00)
[2018-07-24] MEDS: LORazepam 2 MG TABLET PO PRN ×2 (08:17→20:00)
[2018-07-24] MEDS: QUEtiapine FUMARATE 100 MG TABLET PO SCH ×2 (08:17→16:03)
[2018-07-24] MEDS: OXYBUTYNIN CHLORIDE 5 MG TABLET PO SCH (08:19)
[2018-07-24] MEDS: DIVALPROEX SODIUM 250 MG ER TABLET PO SCH ×3 (08:19→16:03)
[2018-07-24] MEDS: SERTRALINE HCL 50 MG TABLET PO SCH (08:21)
[2018-07-24] MEDS: HALOPERIDOL 5 MG TABLET PO PRN (08:22)
[2018-07-24 17:20] VITALS: BP 131/83
[2018-07-24] MEDS: QUEtiapine FUMARATE 300 MG TABLET PO SCH (20:00)
[2018-07-25] MEDS: LEVOTHYROXINE SODIUM 50 MCG TABLET PO SCH (06:55)
[2018-07-25] MEDS: NICOTINE 14 MG/24 HOUR PATCH TD SCH (08:46)
[2018-07-25] MEDS: OXYBUTYNIN CHLORIDE 5 MG TABLET PO SCH (08:47)
[2018-07-25] MEDS: DIVALPROEX SODIUM 250 MG ER TABLET PO SCH ×3 (08:47→16:35)
[2018-07-25] MEDS: SERTRALINE HCL 50 MG TABLET PO SCH (08:48)
[2018-07-25] MEDS: QUEtiapine FUMARATE 100 MG TABLET PO SCH ×2 (08:48→16:35)
[2018-07-25] MEDS: BENZTROPINE MESYLATE 2 MG TABLET PO SCH ×2 (08:48→21:06)
[2018-07-25 09:19] VITALS: BP 120/78
[2018-07-25 16:44] VITALS: BP 125/85
[2018-07-25] MEDS: ZOLPIDEM TARTRATE 10 MG TABLET PO PRN (21:06)
[2018-07-25] MEDS: QUEtiapine FUMARATE 300 MG TABLET PO SCH (21:06)
[2018-07-25] MEDS: LORazepam 2 MG TABLET PO PRN (21:06)
[2018-07-26] MEDS: LEVOTHYROXINE SODIUM 50 MCG TABLET PO SCH (06:58)
[2018-07-26 08:58] VITALS: BP 123/87
[2018-07-26] MEDS: NICOTINE 14 MG/24 HOUR PATCH TD SCH (09:00)
[2018-07-26] MEDS: BENZTROPINE MESYLATE 2 MG TABLET PO SCH ×2 (09:09→21:22)
[2018-07-26] MEDS: SERTRALINE HCL 50 MG TABLET PO SCH (09:09)
[2018-07-26] MEDS: OXYBUTYNIN CHLORIDE 5 MG TABLET PO SCH (09:09)
[2018-07-26] MEDS: DIVALPROEX SODIUM 250 MG ER TABLET PO SCH ×3 (09:09→16:37)
[2018-07-26] MEDS: QUEtiapine FUMARATE 100 MG TABLET PO SCH ×2 (09:09→16:37)
[2018-07-26] MEDS: HALOPERIDOL 5 MG TABLET PO PRN (12:22)
[2018-07-26] MEDS: LORazepam 2 MG TABLET PO PRN (12:22)
[2018-07-26 16:48] VITALS: BP 143/87
[2018-07-26] MEDS: QUEtiapine FUMARATE 300 MG TABLET PO SCH (21:22)
[2018-07-26] MEDS: ZOLPIDEM TARTRATE 10 MG TABLET PO PRN (21:34)
[2018-07-27] MEDS: LEVOTHYROXINE SODIUM 50 MCG TABLET PO SCH (07:02)
[2018-07-27] MEDS: BENZTROPINE MESYLATE 2 MG TABLET PO SCH ×2 (08:37→20:18)
[2018-07-27] MEDS: QUEtiapine FUMARATE 100 MG TABLET PO SCH ×2 (08:37→16:46)
[2018-07-27] MEDS: SERTRALINE HCL 50 MG TABLET PO SCH (08:37)
[2018-07-27] MEDS: OXYBUTYNIN CHLORIDE 5 MG TABLET PO SCH (08:38)
[2018-07-27] MEDS: DIVALPROEX SODIUM 250 MG ER TABLET PO SCH ×3 (08:38→16:46)
[2018-07-27] MEDS: HALOPERIDOL 5 MG TABLET PO PRN (08:47)
[2018-07-27] MEDS: LORazepam 2 MG TABLET PO PRN (08:47)
[2018-07-27] MEDS: NICOTINE 14 MG/24 HOUR PATCH TD SCH (09:00)
[2018-07-27 12:38] VITALS: BP 118/88
[2018-07-27 16:11] VITALS: BP 124/77
[2018-07-27] MEDS: QUEtiapine FUMARATE 300 MG TABLET PO SCH (20:18)
[2018-07-27] MEDS: ZOLPIDEM TARTRATE 10 MG TABLET PO PRN (21:48)
[2018-07-28] MEDS: LEVOTHYROXINE SODIUM 50 MCG TABLET PO SCH (06:59)
[2018-07-28] MEDS: HALOPERIDOL 5 MG TABLET PO PRN (07:45)
[2018-07-28] MEDS: LORazepam 2 MG TABLET PO PRN (07:45)
[2018-07-28 08:05] VITALS: BP 128/69
[2018-07-28] MEDS: QUEtiapine FUMARATE 100 MG TABLET PO SCH ×2 (08:40→17:09)
[2018-07-28] MEDS: BENZTROPINE MESYLATE 2 MG TABLET PO SCH ×2 (08:40→20:24)
[2018-07-28] MEDS: DIVALPROEX SODIUM 250 MG ER TABLET PO SCH ×3 (08:40→17:09)
[2018-07-28] MEDS: OXYBUTYNIN CHLORIDE 5 MG TABLET PO SCH (08:40)
[2018-07-28] MEDS: SERTRALINE HCL 50 MG TABLET PO SCH (08:40)
[2018-07-28] MEDS: NICOTINE 14 MG/24 HOUR PATCH TD SCH (09:00)
[2018-07-28 16:00] VITALS: BP 130/75
[2018-07-28] MEDS: ZOLPIDEM TARTRATE 10 MG TABLET PO PRN (20:24)
[2018-07-28] MEDS: QUEtiapine FUMARATE 300 MG TABLET PO SCH (20:24)
[2018-07-29] MEDS: LORazepam 2 MG TABLET PO PRN (02:21)
[2018-07-29] MEDS: HALOPERIDOL 5 MG TABLET PO PRN (02:21)
[2018-07-29] MEDS: LEVOTHYROXINE SODIUM 50 MCG TABLET PO SCH (06:06)
[2018-07-29 08:00] VITALS: BP 150/70
[2018-07-29] MEDS: BENZTROPINE MESYLATE 2 MG TABLET PO SCH ×2 (08:02→20:38)
[2018-07-29] MEDS: OXYBUTYNIN CHLORIDE 5 MG TABLET PO SCH (08:03)
[2018-07-29] MEDS: QUEtiapine FUMARATE 100 MG TABLET PO SCH ×2 (08:03→17:20)
[2018-07-29] MEDS: DIVALPROEX SODIUM 250 MG ER TABLET PO SCH ×3 (08:03→17:20)
[2018-07-29] MEDS: SERTRALINE HCL 50 MG TABLET PO SCH (08:03)
[2018-07-29] MEDS: NICOTINE 14 MG/24 HOUR PATCH TD SCH (09:00)
[2018-07-29 16:00] VITALS: BP 123/88
[2018-07-29] MEDS: QUEtiapine FUMARATE 300 MG TABLET PO SCH (20:38)
[2018-07-30 02:26] VITALS: BP 141/93
[2018-07-30] MEDS: LEVOTHYROXINE SODIUM 50 MCG TABLET PO SCH (06:46)
[2018-07-30 08:00] VITALS: BP 161/77
[2018-07-30] MEDS: DIVALPROEX SODIUM 250 MG ER TABLET PO SCH ×3 (08:11→17:43)
[2018-07-30] MEDS: LORazepam 2 MG TABLET PO PRN (08:11)
[2018-07-30] MEDS: SERTRALINE HCL 50 MG TABLET PO SCH (08:12)
[2018-07-30] MEDS: OXYBUTYNIN CHLORIDE 5 MG TABLET PO SCH (08:12)
[2018-07-30] MEDS: QUEtiapine FUMARATE 100 MG TABLET PO SCH ×2 (08:12→17:43)
[2018-07-30] MEDS: HALOPERIDOL 5 MG TABLET PO PRN (08:12)
[2018-07-30] MEDS: BENZTROPINE MESYLATE 2 MG TABLET PO SCH ×2 (08:12→21:18)
[2018-07-30] MEDS: NICOTINE 14 MG/24 HOUR PATCH TD SCH (09:00)
[2018-07-30 18:17] VITALS: BP 135/88
[2018-07-30] MEDS: ZOLPIDEM TARTRATE 10 MG TABLET PO PRN (21:19)
[2018-07-30] MEDS: QUEtiapine FUMARATE 300 MG TABLET PO SCH (21:19)
[2018-07-31] MEDS: LEVOTHYROXINE SODIUM 50 MCG TABLET PO SCH (06:54)
[2018-07-31 08:44] VITALS: BP 111/71
[2018-07-31] MEDS: NICOTINE 14 MG/24 HOUR PATCH TD SCH (09:00)
[2018-07-31] MEDS: DIVALPROEX SODIUM 250 MG ER TABLET PO SCH ×3 (09:54→16:47)
[2018-07-31] MEDS: SERTRALINE HCL 50 MG TABLET PO SCH (09:54)
[2018-07-31] MEDS: BENZTROPINE MESYLATE 2 MG TABLET PO SCH ×2 (09:54→20:20)
[2018-07-31] MEDS: QUEtiapine FUMARATE 100 MG TABLET PO SCH ×2 (09:54→16:47)
[2018-07-31] MEDS: OXYBUTYNIN CHLORIDE 5 MG TABLET PO SCH (09:54)
[2018-07-31 16:00] VITALS: BP 130/77
[2018-07-31] MEDS: ZOLPIDEM TARTRATE 10 MG TABLET PO PRN (20:20)
[2018-07-31] MEDS: QUEtiapine FUMARATE 300 MG TABLET PO SCH (20:20)
[2018-08-01] MEDS: HALOPERIDOL 5 MG TABLET PO PRN ×2 (00:59→08:17)
[2018-08-01] MEDS: LORazepam 2 MG TABLET PO PRN ×2 (00:59→08:17)
[2018-08-01 01:03] VITALS: BP 138/78
[2018-08-01] MEDS: LEVOTHYROXINE SODIUM 50 MCG TABLET PO SCH (06:40)
[2018-08-01] MEDS: BENZTROPINE MESYLATE 2 MG TABLET PO SCH ×2 (08:16→20:24)
[2018-08-01] MEDS: OXYBUTYNIN CHLORIDE 5 MG TABLET PO SCH (08:16)
[2018-08-01] MEDS: SERTRALINE HCL 50 MG TABLET PO SCH (08:17)
[2018-08-01] MEDS: DIVALPROEX SODIUM 250 MG ER TABLET PO SCH ×3 (08:17→16:43)
[2018-08-01] MEDS: QUEtiapine FUMARATE 100 MG TABLET PO SCH ×2 (08:17→16:43)
[2018-08-01 08:40] VITALS: BP 154/90
[2018-08-01] MEDS: NICOTINE 14 MG/24 HOUR PATCH TD SCH (09:00)
[2018-08-01 16:30] VITALS: BP 144/86
[2018-08-01] MEDS: ZOLPIDEM TARTRATE 10 MG TABLET PO PRN (20:24)
[2018-08-01] MEDS: QUEtiapine FUMARATE 300 MG TABLET PO SCH (20:24)
[2018-08-02] MEDS: LEVOTHYROXINE SODIUM 50 MCG TABLET PO SCH (06:59)
[2018-08-02] MEDS: SERTRALINE HCL 50 MG TABLET PO SCH (08:09)
[2018-08-02] MEDS: DIVALPROEX SODIUM 250 MG ER TABLET PO SCH ×3 (08:09→17:03)
[2018-08-02] MEDS: LORazepam 2 MG TABLET PO PRN ×2 (08:09→16:57)
[2018-08-02] MEDS: OXYBUTYNIN CHLORIDE 5 MG TABLET PO SCH (08:09)
[2018-08-02] MEDS: QUEtiapine FUMARATE 100 MG TABLET PO SCH ×2 (08:10→17:03)
[2018-08-02] MEDS: HALOPERIDOL 5 MG TABLET PO PRN ×2 (08:10→16:57)
[2018-08-02] MEDS: BENZTROPINE MESYLATE 2 MG TABLET PO SCH ×2 (08:10→20:39)
[2018-08-02 08:52] VITALS: BP 126/72
[2018-08-02] MEDS: NICOTINE 14 MG/24 HOUR PATCH TD SCH (09:00)
[2018-08-02 18:25] VITALS: BP 135/76
[2018-08-02] MEDS: ZOLPIDEM TARTRATE 10 MG TABLET PO PRN (20:39)
[2018-08-02] MEDS: QUEtiapine FUMARATE 300 MG TABLET PO SCH (20:39)
[2018-08-03] MEDS: LEVOTHYROXINE SODIUM 50 MCG TABLET PO SCH (06:58)
[2018-08-03] MEDS: SERTRALINE HCL 50 MG TABLET PO SCH (07:58)
[2018-08-03] MEDS: BENZTROPINE MESYLATE 2 MG TABLET PO SCH ×2 (07:58→20:21)
[2018-08-03] MEDS: OXYBUTYNIN CHLORIDE 5 MG TABLET PO SCH (07:58)
[2018-08-03] MEDS: QUEtiapine FUMARATE 100 MG TABLET PO SCH ×2 (07:58→17:12)
[2018-08-03] MEDS: DIVALPROEX SODIUM 250 MG ER TABLET PO SCH ×3 (07:59→17:11)
[2018-08-03] MEDS: HALOPERIDOL 5 MG TABLET PO PRN (08:01)
[2018-08-03] MEDS: LORazepam 2 MG TABLET PO PRN (08:01)
[2018-08-03] MEDS: NICOTINE 14 MG/24 HOUR PATCH TD SCH (09:00)
[2018-08-03 09:36] VITALS: BP 145/80
[2018-08-03 19:12] VITALS: BP 137/79
[2018-08-03] MEDS: QUEtiapine FUMARATE 300 MG TABLET PO SCH (20:21)
[2018-08-03] MEDS: ZOLPIDEM TARTRATE 10 MG TABLET PO PRN (20:21)
[2018-08-04 06:25] VITALS: BP 117/82
[2018-08-04] MEDS: IBUPROFEN 400 MG TABLET PO PRN (06:26)
[2018-08-04] MEDS: LEVOTHYROXINE SODIUM 50 MCG TABLET PO SCH (06:49)
[2018-08-04] MEDS: DIVALPROEX SODIUM 250 MG ER TABLET PO SCH ×3 (08:19→16:20)
[2018-08-04] MEDS: NICOTINE 14 MG/24 HOUR PATCH TD SCH (08:19)
[2018-08-04] MEDS: QUEtiapine FUMARATE 100 MG TABLET PO SCH ×2 (08:19→16:21)
[2018-08-04] MEDS: SERTRALINE HCL 50 MG TABLET PO SCH (08:19)
[2018-08-04] MEDS: OXYBUTYNIN CHLORIDE 5 MG TABLET PO SCH (08:19)
[2018-08-04] MEDS: BENZTROPINE MESYLATE 2 MG TABLET PO SCH ×2 (08:19→20:28)
[2018-08-04 09:04] VITALS: BP 145/83
[2018-08-04 16:00] VITALS: BP 144/87
[2018-08-04] MEDS: ZOLPIDEM TARTRATE 10 MG TABLET PO PRN (20:27)
[2018-08-04] MEDS: QUEtiapine FUMARATE 300 MG TABLET PO SCH (20:27)
[2018-08-05] MEDS: LEVOTHYROXINE SODIUM 50 MCG TABLET PO SCH (06:59)
[2018-08-05] MEDS: SERTRALINE HCL 50 MG TABLET PO SCH (07:55)
[2018-08-05] MEDS: BENZTROPINE MESYLATE 2 MG TABLET PO SCH ×2 (07:55→20:04)
[2018-08-05] MEDS: QUEtiapine FUMARATE 100 MG TABLET PO SCH ×2 (07:55→15:43)
[2018-08-05] MEDS: OXYBUTYNIN CHLORIDE 5 MG TABLET PO SCH (07:55)
[2018-08-05] MEDS: DIVALPROEX SODIUM 250 MG ER TABLET PO SCH ×3 (07:56→15:44)
[2018-08-05] MEDS: LORazepam 2 MG TABLET PO PRN (07:58)
[2018-08-05] MEDS: HALOPERIDOL 5 MG TABLET PO PRN (07:58)
[2018-08-05 08:00] VITALS: BP 139/82
[2018-08-05] MEDS: NICOTINE 14 MG/24 HOUR PATCH TD SCH (09:00)
[2018-08-05 17:30] VITALS: BP 146/88
[2018-08-05] MEDS: QUEtiapine FUMARATE 300 MG TABLET PO SCH (20:05)
[2018-08-05] MEDS: ZOLPIDEM TARTRATE 10 MG TABLET PO PRN (20:06)
[2018-08-06] MEDS: LEVOTHYROXINE SODIUM 50 MCG TABLET PO SCH (06:42)
[2018-08-06] MEDS: DIVALPROEX SODIUM 250 MG ER TABLET PO SCH ×3 (07:52→16:20)
[2018-08-06] MEDS: QUEtiapine FUMARATE 100 MG TABLET PO SCH ×2 (07:52→16:20)
[2018-08-06] MEDS: OXYBUTYNIN CHLORIDE 5 MG TABLET PO SCH (07:52)
[2018-08-06] MEDS: HALOPERIDOL 5 MG TABLET PO PRN (07:53)
[2018-08-06] MEDS: LORazepam 2 MG TABLET PO PRN (07:53)
[2018-08-06] MEDS: BENZTROPINE MESYLATE 2 MG TABLET PO SCH ×2 (07:53→21:32)
[2018-08-06] MEDS: SERTRALINE HCL 50 MG TABLET PO SCH (07:53)
[2018-08-06 08:00] VITALS: BP 124/75
[2018-08-06] MEDS: NICOTINE 14 MG/24 HOUR PATCH TD SCH (09:00)
[2018-08-06 20:29] VITALS: BP 140/92
[2018-08-06] MEDS: QUEtiapine FUMARATE 300 MG TABLET PO SCH (21:32)
[2018-08-06] MEDS: ZOLPIDEM TARTRATE 10 MG TABLET PO PRN (21:32)
[2018-08-07] MEDS: LEVOTHYROXINE SODIUM 50 MCG TABLET PO SCH (06:46)
[2018-08-07] MEDS: DIVALPROEX SODIUM 250 MG ER TABLET PO SCH ×3 (07:41→16:58)
[2018-08-07] MEDS: SERTRALINE HCL 50 MG TABLET PO SCH (07:41)
[2018-08-07] MEDS: BENZTROPINE MESYLATE 2 MG TABLET PO SCH ×2 (07:41→20:06)
[2018-08-07] MEDS: QUEtiapine FUMARATE 100 MG TABLET PO SCH ×2 (07:41→16:57)
[2018-08-07] MEDS: OXYBUTYNIN CHLORIDE 5 MG TABLET PO SCH (07:41)
[2018-08-07] MEDS: MULTIVITAMINS, THERAPEUTIC TABLET PO SCH (07:41)
[2018-08-07] MEDS: NICOTINE 14 MG/24 HOUR PATCH TD SCH (09:00)
[2018-08-07 10:55] VITALS: BP 131/73
[2018-08-07] MEDS: LORazepam 2 MG TABLET PO PRN (12:06)
[2018-08-07] MEDS: HALOPERIDOL 5 MG TABLET PO PRN (12:06)
[2018-08-07 18:15] VITALS: BP 139/91
[2018-08-07] MEDS: QUEtiapine FUMARATE 300 MG TABLET PO SCH (20:06)
[2018-08-07] MEDS: ZOLPIDEM TARTRATE 10 MG TABLET PO PRN (20:10)
[2018-08-08] MEDS: LEVOTHYROXINE SODIUM 50 MCG TABLET PO SCH (07:03)
[2018-08-08 08:47] VITALS: BP 133/70
[2018-08-08] MEDS: NICOTINE 14 MG/24 HOUR PATCH TD SCH (09:00)
[2018-08-08] MEDS: QUEtiapine FUMARATE 100 MG TABLET PO SCH (09:54)
[2018-08-08] MEDS: BENZTROPINE MESYLATE 2 MG TABLET PO SCH ×2 (09:54→21:50)
[2018-08-08] MEDS: DIVALPROEX SODIUM 250 MG ER TABLET PO SCH ×3 (09:54→16:36)
[2018-08-08] MEDS: OXYBUTYNIN CHLORIDE 5 MG TABLET PO SCH (09:54)
[2018-08-08] MEDS: MULTIVITAMINS, THERAPEUTIC TABLET PO SCH (09:54)
[2018-08-08] MEDS: SERTRALINE HCL 50 MG TABLET PO SCH (09:55)
[2018-08-08 17:00] VITALS: BP 135/84
[2018-08-08] MEDS: LORazepam 2 MG TABLET PO PRN (18:30)
[2018-08-08] MEDS: HALOPERIDOL 5 MG TABLET PO PRN (18:30)
[2018-08-08] MEDS: QUEtiapine FUMARATE 200 MG TABLET PO SCH (22:00)
[2018-08-08] MEDS: ZOLPIDEM TARTRATE 10 MG TABLET PO PRN (22:06)
[2018-08-09] MEDS: LEVOTHYROXINE SODIUM 50 MCG TABLET PO SCH (06:53)
[2018-08-09] MEDS: OXYBUTYNIN CHLORIDE 5 MG TABLET PO SCH (08:05)
[2018-08-09] MEDS: DIVALPROEX SODIUM 250 MG ER TABLET PO SCH ×3 (08:05→16:35)
[2018-08-09] MEDS: BENZTROPINE MESYLATE 2 MG TABLET PO SCH ×2 (08:06→20:13)
[2018-08-09] MEDS: HALOPERIDOL 5 MG TABLET PO PRN (08:06)
[2018-08-09] MEDS: SERTRALINE HCL 50 MG TABLET PO SCH (08:06)
[2018-08-09] MEDS: NICOTINE 14 MG/24 HOUR PATCH TD SCH ×2 (08:06→08:53)
[2018-08-09] MEDS: QUEtiapine FUMARATE 200 MG TABLET PO SCH ×2 (08:06→20:13)
[2018-08-09] MEDS: MULTIVITAMINS, THERAPEUTIC TABLET PO SCH (08:06)
[2018-08-09] MEDS: LORazepam 2 MG TABLET PO PRN (08:06)
[2018-08-09 08:18] VITALS: BP 143/89
[2018-08-09 16:30] VITALS: BP 128/69
[2018-08-09] MEDS: ZOLPIDEM TARTRATE 10 MG TABLET PO PRN (22:49)
[2018-08-10] MEDS: LEVOTHYROXINE SODIUM 50 MCG TABLET PO SCH ×2 (06:50→08:10)
[2018-08-10] MEDS: MULTIVITAMINS, THERAPEUTIC TABLET PO SCH (08:09)
[2018-08-10] MEDS: QUEtiapine FUMARATE 200 MG TABLET PO SCH ×2 (08:09→20:19)
[2018-08-10] MEDS: BENZTROPINE MESYLATE 2 MG TABLET PO SCH ×2 (08:09→20:19)
[2018-08-10] MEDS: SERTRALINE HCL 50 MG TABLET PO SCH (08:09)
[2018-08-10] MEDS: DIVALPROEX SODIUM 250 MG ER TABLET PO SCH ×3 (08:11→16:15)
[2018-08-10] MEDS: OXYBUTYNIN CHLORIDE 5 MG TABLET PO SCH (08:11)
[2018-08-10] MEDS: NICOTINE 14 MG/24 HOUR PATCH TD SCH (08:12)
[2018-08-10 08:54] VITALS: BP 122/79
[2018-08-10 16:30] VITALS: BP 128/67
[2018-08-10] MEDS: LORazepam 2 MG TABLET PO PRN (20:19)
[2018-08-11 06:03] LABS: BASOPHILS % (AUTO) 0.5 % (0.0-2.0); EOSINOPHILS % (AUTO) 8.2 % (1.0-6.0); HEMATOCRIT 44.1 % (41-53); HEMOGLOBIN 15.4 g/dL (13.5-17.5); LYMPHOCYTES # (AUTO) 2.5 K/uL (1.0-4.8); LYMPHOCYTES % (AUTO) 35.4 % (22.0-44.0); MEAN CORPUSCULAR HEMOGLOBIN 30.7 pg (26.0-34.0); MEAN CORPUSCULAR HGB CONC 34.9 G/dL (31.0-37.0); MEAN CORPUSCULAR VOLUME 88 fL (80-100); MONOCYTES # (AUTO) 0.6 K/uL (0.1-1.0); MONOCYTES % (AUTO) 8.7 % (2.0-9.0); NEUTROPHILS # (AUTO) 3.4 K/uL (1.8-7.7); NEUTROPHILS % (AUTO) 47.2 % (40.0-70.0); PLATELET COUNT (AUTO) 188 K/uL (150-450); RED BLOOD CELL COUNT(AUTO) 5.02 MIL/uL (4.50-5.90); RED CELL DISTRIBUTION WIDTH 14.2 % (11.5-14.5)
[2018-08-11 06:13] LABS: ANION GAP 6 mmol/L (8-16); CALCIUM, TOTAL 9.2 mg/dL (8.8-10.5); CARBON DIOXIDE 30 mmol/L (22-29); CHLORIDE 102 mmol/L (98-107); CREATININE 1.18 mg/dL (0.60-1.30); GLOMERULAR FILTR. RATE CALC > 60 mL/min (>60); GLUCOSE,RANDOM 90 mg/dL (70-110); POTASSIUM 4.2 mmol/L (3.5-5.1); SODIUM SERUM 138 mmol/L (136-145); UREA NITROGEN, BLOOD 10 mg/dL (7-18)
[2018-08-11] MEDS: LEVOTHYROXINE SODIUM 50 MCG TABLET PO SCH (07:09)
[2018-08-11] MEDS: DIVALPROEX SODIUM 250 MG ER TABLET PO SCH ×3 (08:57→16:49)
[2018-08-11] MEDS: OXYBUTYNIN CHLORIDE 5 MG TABLET PO SCH (08:57)
[2018-08-11] MEDS: BENZTROPINE MESYLATE 2 MG TABLET PO SCH ×2 (08:57→20:22)
[2018-08-11] MEDS: QUEtiapine FUMARATE 200 MG TABLET PO SCH ×2 (08:57→20:22)
[2018-08-11] MEDS: MULTIVITAMINS, THERAPEUTIC TABLET PO SCH (08:57)
[2018-08-11] MEDS: SERTRALINE HCL 50 MG TABLET PO SCH (08:57)
[2018-08-11] MEDS: NICOTINE 14 MG/24 HOUR PATCH TD SCH (08:58)
[2018-08-11 09:29] VITALS: BP 135/84
[2018-08-11 16:00] VITALS: BP 145/71
[2018-08-11] MEDS: ZOLPIDEM TARTRATE 10 MG TABLET PO PRN (20:58)
[2018-08-11] MEDS: LORazepam 2 MG TABLET PO PRN (20:58)
[2018-08-12] MEDS: LEVOTHYROXINE SODIUM 50 MCG TABLET PO SCH ×2 (06:39→08:12)
[2018-08-12] MEDS: MULTIVITAMINS, THERAPEUTIC TABLET PO SCH (08:11)
[2018-08-12] MEDS: SERTRALINE HCL 50 MG TABLET PO SCH (08:11)
[2018-08-12] MEDS: BENZTROPINE MESYLATE 2 MG TABLET PO SCH ×2 (08:12→20:12)
[2018-08-12] MEDS: QUEtiapine FUMARATE 200 MG TABLET PO SCH ×2 (08:12→20:12)
[2018-08-12] MEDS: OXYBUTYNIN CHLORIDE 5 MG TABLET PO SCH (08:13)
[2018-08-12 08:39] VITALS: BP 130/78
[2018-08-12] MEDS: NICOTINE 14 MG/24 HOUR PATCH TD SCH (09:00)
[2018-08-12] MEDS: DIVALPROEX SODIUM 250 MG ER TABLET PO SCH ×3 (09:17→16:04)
[2018-08-12] MEDS: HALOPERIDOL 5 MG TABLET PO PRN (12:22)
[2018-08-12] MEDS: LORazepam 2 MG TABLET PO PRN (12:22)
[2018-08-12 16:00] VITALS: BP 146/79
[2018-08-12 23:35] VITALS: BP 111/67
[2018-08-12] MEDS: ZOLPIDEM TARTRATE 10 MG TABLET PO PRN (23:37)
[2018-08-13] MEDS: BENZTROPINE MESYLATE 2 MG TABLET PO SCH ×2 (08:23→20:08)
[2018-08-13] MEDS: DIVALPROEX SODIUM 250 MG ER TABLET PO SCH ×3 (08:23→16:40)
[2018-08-13] MEDS: QUEtiapine FUMARATE 200 MG TABLET PO SCH ×2 (08:23→20:07)
[2018-08-13] MEDS: OXYBUTYNIN CHLORIDE 5 MG TABLET PO SCH (08:23)
[2018-08-13] MEDS: SERTRALINE HCL 50 MG TABLET PO SCH (08:24)
[2018-08-13] MEDS: MULTIVITAMINS, THERAPEUTIC TABLET PO SCH (08:24)
[2018-08-13] MEDS: NICOTINE 14 MG/24 HOUR PATCH TD SCH (08:24)
[2018-08-13 09:21] VITALS: BP 115/69
[2018-08-13 16:20] VITALS: BP 124/82
[2018-08-13] MEDS: LORazepam 2 MG TABLET PO PRN (16:40)
[2018-08-14] MEDS: LORazepam 2 MG TABLET PO PRN ×2 (00:03→16:15)
[2018-08-14] MEDS: ZOLPIDEM TARTRATE 10 MG TABLET PO PRN ×2 (00:03→20:38)
[2018-08-14 00:05] VITALS: BP 134/80
[2018-08-14] MEDS: LEVOTHYROXINE SODIUM 50 MCG TABLET PO SCH (06:54)
[2018-08-14 08:40] VITALS: BP 137/72
[2018-08-14] MEDS: QUEtiapine FUMARATE 200 MG TABLET PO SCH ×2 (08:56→20:39)
[2018-08-14] MEDS: DIVALPROEX SODIUM 250 MG ER TABLET PO SCH ×3 (08:57→16:50)
[2018-08-14] MEDS: MULTIVITAMINS, THERAPEUTIC TABLET PO SCH (08:57)
[2018-08-14] MEDS: BENZTROPINE MESYLATE 2 MG TABLET PO SCH ×2 (08:57→20:39)
[2018-08-14] MEDS: OXYBUTYNIN CHLORIDE 5 MG TABLET PO SCH (08:57)
[2018-08-14] MEDS: SERTRALINE HCL 50 MG TABLET PO SCH (08:58)
[2018-08-14 16:00] VITALS: BP 144/84
[2018-08-14] MEDS: HALOPERIDOL 5 MG TABLET PO PRN (16:15)
[2018-08-15 03:56] VITALS: BP 134/75
[2018-08-15] MEDS: LEVOTHYROXINE SODIUM 50 MCG TABLET PO SCH (06:43)
[2018-08-15 08:14] VITALS: BP 132/87
[2018-08-15] MEDS: MULTIVITAMINS, THERAPEUTIC TABLET PO SCH (08:38)
[2018-08-15] MEDS: QUEtiapine FUMARATE 200 MG TABLET PO SCH ×2 (08:38→20:13)
[2018-08-15] MEDS: BENZTROPINE MESYLATE 2 MG TABLET PO SCH ×2 (08:38→20:14)
[2018-08-15] MEDS: SERTRALINE HCL 50 MG TABLET PO SCH (08:39)
[2018-08-15] MEDS: DIVALPROEX SODIUM 250 MG ER TABLET PO SCH ×3 (08:40→16:22)
[2018-08-15] MEDS: OXYBUTYNIN CHLORIDE 5 MG TABLET PO SCH (08:40)
[2018-08-15] MEDS: LORazepam 2 MG TABLET PO PRN (15:18)
[2018-08-15 16:46] VITALS: BP 121/83
[2018-08-15] MEDS: ZOLPIDEM TARTRATE 10 MG TABLET PO PRN (20:14)
[2018-08-16] MEDS: LEVOTHYROXINE SODIUM 50 MCG TABLET PO SCH (06:42)
[2018-08-16] MEDS: BENZTROPINE MESYLATE 2 MG TABLET PO SCH ×2 (07:58→20:05)
[2018-08-16] MEDS: MULTIVITAMINS, THERAPEUTIC TABLET PO SCH (07:58)
[2018-08-16] MEDS: SERTRALINE HCL 50 MG TABLET PO SCH (07:58)
[2018-08-16] MEDS: QUEtiapine FUMARATE 200 MG TABLET PO SCH ×2 (07:58→20:05)
[2018-08-16] MEDS: OXYBUTYNIN CHLORIDE 5 MG TABLET PO SCH (07:59)
[2018-08-16] MEDS: DIVALPROEX SODIUM 250 MG ER TABLET PO SCH ×3 (07:59→16:34)
[2018-08-16 08:29] VITALS: BP 144/75
[2018-08-16 16:30] VITALS: BP 136/83
[2018-08-16] MEDS: LORazepam 2 MG TABLET PO PRN (20:05)
[2018-08-16] MEDS: ZOLPIDEM TARTRATE 10 MG TABLET PO PRN (20:06)
[2018-08-17] MEDS: LEVOTHYROXINE SODIUM 50 MCG TABLET PO SCH (06:36)
[2018-08-17] MEDS: DIVALPROEX SODIUM 250 MG ER TABLET PO SCH ×3 (08:50→16:15)
[2018-08-17] MEDS: QUEtiapine FUMARATE 200 MG TABLET PO SCH ×2 (08:51→20:20)
[2018-08-17] MEDS: SERTRALINE HCL 50 MG TABLET PO SCH (08:51)
[2018-08-17] MEDS: MULTIVITAMINS, THERAPEUTIC TABLET PO SCH (08:51)
[2018-08-17] MEDS: OXYBUTYNIN CHLORIDE 5 MG TABLET PO SCH (08:51)
[2018-08-17] MEDS: BENZTROPINE MESYLATE 2 MG TABLET PO SCH ×2 (08:51→20:19)
[2018-08-17 16:00] VITALS: BP 133/82
[2018-08-17] MEDS: ZOLPIDEM TARTRATE 10 MG TABLET PO PRN (20:20)
[2018-08-18 06:18] VITALS: BP 131/79
[2018-08-18] MEDS: LEVOTHYROXINE SODIUM 50 MCG TABLET PO SCH (06:56)
[2018-08-18 08:37] VITALS: BP 150/89
[2018-08-18] MEDS: DIVALPROEX SODIUM 250 MG ER TABLET PO SCH ×3 (09:31→18:16)
[2018-08-18] MEDS: BENZTROPINE MESYLATE 2 MG TABLET PO SCH ×2 (09:31→20:09)
[2018-08-18] MEDS: OXYBUTYNIN CHLORIDE 5 MG TABLET PO SCH (09:31)
[2018-08-18] MEDS: QUEtiapine FUMARATE 200 MG TABLET PO SCH ×2 (09:31→20:09)
[2018-08-18] MEDS: MULTIVITAMINS, THERAPEUTIC TABLET PO SCH (09:32)
[2018-08-18] MEDS: SERTRALINE HCL 50 MG TABLET PO SCH (09:32)
[2018-08-18] MEDS: HALOPERIDOL 5 MG TABLET PO PRN (11:00)
[2018-08-18] MEDS: LORazepam 2 MG TABLET PO PRN ×2 (11:01→18:13)
[2018-08-18 18:15] VITALS: BP 130/79
[2018-08-18 20:10] VITALS: BP 129/79
[2018-08-18] MEDS: ZOLPIDEM TARTRATE 10 MG TABLET PO PRN (20:32)
[2018-08-19] MEDS: LEVOTHYROXINE SODIUM 50 MCG TABLET PO SCH (06:28)
[2018-08-19] MEDS: SERTRALINE HCL 50 MG TABLET PO SCH (08:25)
[2018-08-19] MEDS: BENZTROPINE MESYLATE 2 MG TABLET PO SCH ×2 (08:25→20:42)
[2018-08-19] MEDS: DIVALPROEX SODIUM 250 MG ER TABLET PO SCH ×3 (08:25→17:28)
[2018-08-19] MEDS: QUEtiapine FUMARATE 200 MG TABLET PO SCH ×2 (08:25→20:42)
[2018-08-19] MEDS: MULTIVITAMINS, THERAPEUTIC TABLET PO SCH (08:25)
[2018-08-19] MEDS: OXYBUTYNIN CHLORIDE 5 MG TABLET PO SCH (08:25)
[2018-08-19 10:08] VITALS: BP 115/73
[2018-08-19] MEDS: LORazepam 2 MG TABLET PO PRN (12:11)
[2018-08-19 17:01] VITALS: BP 125/86
[2018-08-19] MEDS: ZOLPIDEM TARTRATE 10 MG TABLET PO PRN (20:42)
[2018-08-20] MEDS: HALOPERIDOL 5 MG TABLET PO PRN (00:08)
[2018-08-20] MEDS: LORazepam 2 MG TABLET PO PRN (00:08)
[2018-08-20] MEDS: LEVOTHYROXINE SODIUM 50 MCG TABLET PO SCH (06:49)
[2018-08-20] MEDS: DIVALPROEX SODIUM 250 MG ER TABLET PO SCH ×3 (08:17→16:06)
[2018-08-20] MEDS: SERTRALINE HCL 50 MG TABLET PO SCH (08:17)
[2018-08-20] MEDS: MULTIVITAMINS, THERAPEUTIC TABLET PO SCH (08:17)
[2018-08-20] MEDS: BENZTROPINE MESYLATE 2 MG TABLET PO SCH ×2 (08:17→20:15)
[2018-08-20] MEDS: QUEtiapine FUMARATE 200 MG TABLET PO SCH ×2 (08:17→20:15)
[2018-08-20] MEDS: OXYBUTYNIN CHLORIDE 5 MG TABLET PO SCH (08:17)
[2018-08-20 10:13] VITALS: BP 124/79
[2018-08-20 20:51] VITALS: BP 130/86
[2018-08-20] MEDS: ZOLPIDEM TARTRATE 10 MG TABLET PO PRN (21:49)
[2018-08-21 06:05] VITALS: BP 122/79
[2018-08-21] MEDS: LEVOTHYROXINE SODIUM 50 MCG TABLET PO SCH (06:48)
[2018-08-21] MEDS: LORazepam 2 MG TABLET PO PRN ×3 (07:57→16:40)
[2018-08-21] MEDS: QUEtiapine FUMARATE 200 MG TABLET PO SCH ×2 (07:58→20:19)
[2018-08-21] MEDS: BENZTROPINE MESYLATE 2 MG TABLET PO SCH ×2 (07:58→20:18)
[2018-08-21] MEDS: SERTRALINE HCL 50 MG TABLET PO SCH (07:58)
[2018-08-21] MEDS: MULTIVITAMINS, THERAPEUTIC TABLET PO SCH (07:58)
[2018-08-21] MEDS: DIVALPROEX SODIUM 250 MG ER TABLET PO SCH ×3 (07:59→16:40)
[2018-08-21] MEDS: OXYBUTYNIN CHLORIDE 5 MG TABLET PO SCH (07:59)
[2018-08-21 12:15] VITALS: BP 126/76
[2018-08-21 16:07] VITALS: BP 140/92
[2018-08-21] MEDS: HALOPERIDOL 5 MG TABLET PO PRN (16:41)
[2018-08-21] MEDS: ZOLPIDEM TARTRATE 10 MG TABLET PO PRN (20:18)
[2018-08-22] MEDS: LEVOTHYROXINE SODIUM 50 MCG TABLET PO SCH (06:46)
[2018-08-22 08:30] VITALS: BP 150/78
[2018-08-22] MEDS: MULTIVITAMINS, THERAPEUTIC TABLET PO SCH (09:17)
[2018-08-22] MEDS: OXYBUTYNIN CHLORIDE 5 MG TABLET PO SCH (09:17)
[2018-08-22] MEDS: BENZTROPINE MESYLATE 2 MG TABLET PO SCH ×2 (09:17→20:31)
[2018-08-22] MEDS: SERTRALINE HCL 50 MG TABLET PO SCH (09:17)
[2018-08-22] MEDS: QUEtiapine FUMARATE 200 MG TABLET PO SCH ×2 (09:18→20:31)
[2018-08-22] MEDS: DIVALPROEX SODIUM 250 MG ER TABLET PO SCH ×3 (09:18→16:31)
[2018-08-22 16:15] VITALS: BP 150/78
[2018-08-22] MEDS: ZOLPIDEM TARTRATE 10 MG TABLET PO PRN (22:19)
[2018-08-23] MEDS: LEVOTHYROXINE SODIUM 50 MCG TABLET PO SCH (06:22)
[2018-08-23] MEDS: MULTIVITAMINS, THERAPEUTIC TABLET PO SCH (10:01)
[2018-08-23] MEDS: DIVALPROEX SODIUM 250 MG ER TABLET PO SCH ×3 (10:01→17:11)
[2018-08-23] MEDS: QUEtiapine FUMARATE 200 MG TABLET PO SCH ×2 (10:01→20:43)
[2018-08-23] MEDS: SERTRALINE HCL 50 MG TABLET PO SCH (10:02)
[2018-08-23] MEDS: OXYBUTYNIN CHLORIDE 5 MG TABLET PO SCH (10:02)
[2018-08-23] MEDS: BENZTROPINE MESYLATE 2 MG TABLET PO SCH ×2 (10:02→20:43)
[2018-08-23 16:00] VITALS: BP 132/87
[2018-08-23] MEDS: LORazepam 2 MG TABLET PO PRN (17:12)
[2018-08-23] MEDS: HALOPERIDOL 5 MG TABLET PO PRN (17:12)
[2018-08-23] MEDS: ZOLPIDEM TARTRATE 10 MG TABLET PO PRN (20:43)
[2018-08-24] MEDS: LEVOTHYROXINE SODIUM 50 MCG TABLET PO SCH (06:44)
[2018-08-24] MEDS: SERTRALINE HCL 50 MG TABLET PO SCH (09:20)
[2018-08-24] MEDS: DIVALPROEX SODIUM 250 MG ER TABLET PO SCH ×3 (09:20→16:18)
[2018-08-24] MEDS: QUEtiapine FUMARATE 200 MG TABLET PO SCH ×2 (09:20→20:27)
[2018-08-24] MEDS: MULTIVITAMINS, THERAPEUTIC TABLET PO SCH (09:20)
[2018-08-24] MEDS: OXYBUTYNIN CHLORIDE 5 MG TABLET PO SCH (09:21)
[2018-08-24] MEDS: BENZTROPINE MESYLATE 2 MG TABLET PO SCH ×2 (09:21→20:27)
[2018-08-24] MEDS: DOCUSATE SODIUM 100 MG CAPSULE PO PRN (09:34)
[2018-08-24] MEDS: LORazepam 2 MG TABLET PO PRN (09:43)
[2018-08-24] MEDS: HALOPERIDOL 5 MG TABLET PO PRN (09:43)
[2018-08-24 16:23] VITALS: BP 132/82
[2018-08-24] MEDS: ZOLPIDEM TARTRATE 10 MG TABLET PO PRN (20:29)
[2018-08-25 06:25] VITALS: BP 130/78
[2018-08-25] MEDS: LEVOTHYROXINE SODIUM 50 MCG TABLET PO SCH (06:25)
[2018-08-25] MEDS: QUEtiapine FUMARATE 200 MG TABLET PO SCH ×2 (07:55→20:24)
[2018-08-25] MEDS: BENZTROPINE MESYLATE 2 MG TABLET PO SCH ×2 (07:55→20:24)
[2018-08-25] MEDS: MULTIVITAMINS, THERAPEUTIC TABLET PO SCH (07:55)
[2018-08-25] MEDS: SERTRALINE HCL 50 MG TABLET PO SCH (07:55)
[2018-08-25] MEDS: HALOPERIDOL 5 MG TABLET PO PRN (07:56)
[2018-08-25] MEDS: DIVALPROEX SODIUM 250 MG ER TABLET PO SCH ×3 (07:56→16:39)
[2018-08-25] MEDS: LORazepam 2 MG TABLET PO PRN (07:56)
[2018-08-25] MEDS: OXYBUTYNIN CHLORIDE 5 MG TABLET PO SCH (07:57)
[2018-08-25 08:14] VITALS: BP 147/92
[2018-08-25 16:24] VITALS: BP 136/78
[2018-08-25] MEDS: ZOLPIDEM TARTRATE 10 MG TABLET PO PRN (20:26)
[2018-08-26] MEDS: LEVOTHYROXINE SODIUM 50 MCG TABLET PO SCH (06:50)
[2018-08-26] MEDS: DIVALPROEX SODIUM 250 MG ER TABLET PO SCH ×3 (08:01→16:42)
[2018-08-26] MEDS: HALOPERIDOL 5 MG TABLET PO PRN ×2 (08:01→12:22)
[2018-08-26] MEDS: SERTRALINE HCL 50 MG TABLET PO SCH (08:01)
[2018-08-26] MEDS: LORazepam 2 MG TABLET PO PRN ×2 (08:01→12:22)
[2018-08-26] MEDS: BENZTROPINE MESYLATE 2 MG TABLET PO SCH ×2 (08:01→21:32)
[2018-08-26] MEDS: MULTIVITAMINS, THERAPEUTIC TABLET PO SCH (08:01)
[2018-08-26] MEDS: QUEtiapine FUMARATE 200 MG TABLET PO SCH ×2 (08:01→21:32)
[2018-08-26] MEDS: OXYBUTYNIN CHLORIDE 5 MG TABLET PO SCH (08:01)
[2018-08-26 08:05] VITALS: BP 145/82
[2018-08-26 17:21] VITALS: BP 126/78
[2018-08-27] MEDS: LORazepam 2 MG TABLET PO PRN ×2 (00:04→09:45)
[2018-08-27] MEDS: ZOLPIDEM TARTRATE 10 MG TABLET PO PRN ×2 (00:05→21:05)
[2018-08-27] MEDS: LEVOTHYROXINE SODIUM 50 MCG TABLET PO SCH (06:51)
[2018-08-27] MEDS: QUEtiapine FUMARATE 200 MG TABLET PO SCH ×2 (08:14→21:01)
[2018-08-27] MEDS: DIVALPROEX SODIUM 250 MG ER TABLET PO SCH ×3 (08:14→16:37)
[2018-08-27] MEDS: BENZTROPINE MESYLATE 2 MG TABLET PO SCH ×2 (08:14→21:01)
[2018-08-27] MEDS: MULTIVITAMINS, THERAPEUTIC TABLET PO SCH (08:14)
[2018-08-27] MEDS: SERTRALINE HCL 50 MG TABLET PO SCH (08:14)
[2018-08-27] MEDS: OXYBUTYNIN CHLORIDE 5 MG TABLET PO SCH (08:14)
[2018-08-27 08:15] VITALS: BP 137/81
[2018-08-27 09:16] VITALS: BP 132/81
[2018-08-27] MEDS: HALOPERIDOL 5 MG TABLET PO PRN ×2 (09:45→16:37)
[2018-08-27 16:42] VITALS: BP 123/62
[2018-08-28] MEDS: LEVOTHYROXINE SODIUM 50 MCG TABLET PO SCH (07:08)
[2018-08-28] MEDS: QUEtiapine FUMARATE 200 MG TABLET PO SCH ×2 (08:13→20:25)
[2018-08-28] MEDS: DIVALPROEX SODIUM 250 MG ER TABLET PO SCH ×3 (08:14→16:58)
[2018-08-28] MEDS: SERTRALINE HCL 50 MG TABLET PO SCH (08:14)
[2018-08-28] MEDS: MULTIVITAMINS, THERAPEUTIC TABLET PO SCH (08:14)
[2018-08-28] MEDS: HALOPERIDOL 5 MG TABLET PO PRN ×3 (08:14→21:14)
[2018-08-28] MEDS: LORazepam 2 MG TABLET PO PRN (08:14)
[2018-08-28] MEDS: OXYBUTYNIN CHLORIDE 5 MG TABLET PO SCH (08:14)
[2018-08-28] MEDS: BENZTROPINE MESYLATE 2 MG TABLET PO SCH ×2 (08:14→20:24)
[2018-08-28 09:00] VITALS: BP 134/80
[2018-08-28 17:01] VITALS: BP 119/91
[2018-08-28] MEDS: ZOLPIDEM TARTRATE 10 MG TABLET PO PRN (21:14)
[2018-08-29] MEDS: LEVOTHYROXINE SODIUM 50 MCG TABLET PO SCH (07:00)
[2018-08-29] MEDS: SERTRALINE HCL 50 MG TABLET PO SCH (08:16)
[2018-08-29] MEDS: QUEtiapine FUMARATE 200 MG TABLET PO SCH ×2 (08:16→20:09)
[2018-08-29] MEDS: BENZTROPINE MESYLATE 2 MG TABLET PO SCH ×2 (08:16→21:10)
[2018-08-29] MEDS: LORazepam 2 MG TABLET PO PRN (08:16)
[2018-08-29] MEDS: HALOPERIDOL 5 MG TABLET PO PRN ×2 (08:16→20:12)
[2018-08-29] MEDS: DIVALPROEX SODIUM 250 MG ER TABLET PO SCH ×3 (08:16→17:24)
[2018-08-29] MEDS: OXYBUTYNIN CHLORIDE 5 MG TABLET PO SCH (08:16)
[2018-08-29] MEDS: MULTIVITAMINS, THERAPEUTIC TABLET PO SCH (08:16)
[2018-08-29 15:04] VITALS: BP 127/78
[2018-08-29 16:42] VITALS: BP 127/78
[2018-08-29 16:59] VITALS: BP 128/78
[2018-08-29] MEDS: ZOLPIDEM TARTRATE 10 MG TABLET PO PRN (20:12)
[2018-08-30] MEDS: LEVOTHYROXINE SODIUM 50 MCG TABLET PO SCH (06:39)
[2018-08-30] MEDS: HALOPERIDOL 5 MG TABLET PO PRN ×2 (09:00→16:22)
[2018-08-30] MEDS: BENZTROPINE MESYLATE 2 MG TABLET PO SCH ×2 (09:01→20:43)
[2018-08-30] MEDS: OXYBUTYNIN CHLORIDE 5 MG TABLET PO SCH (09:01)
[2018-08-30] MEDS: SERTRALINE HCL 50 MG TABLET PO SCH (09:01)
[2018-08-30] MEDS: MULTIVITAMINS, THERAPEUTIC TABLET PO SCH (09:01)
[2018-08-30] MEDS: DIVALPROEX SODIUM 250 MG ER TABLET PO SCH ×3 (09:02→16:22)
[2018-08-30] MEDS: QUEtiapine FUMARATE 200 MG TABLET PO SCH ×2 (09:02→20:43)
[2018-08-30 12:46] VITALS: BP 126/77
[2018-08-30 20:19] VITALS: BP 123/77
[2018-08-30] MEDS: ZOLPIDEM TARTRATE 10 MG TABLET PO PRN (20:43)
[2018-08-31 06:05] VITALS: BP 128/76
[2018-08-31] MEDS: LEVOTHYROXINE SODIUM 50 MCG TABLET PO SCH (07:00)
[2018-08-31] MEDS: DIVALPROEX SODIUM 250 MG ER TABLET PO SCH ×3 (08:44→16:58)
[2018-08-31] MEDS: MULTIVITAMINS, THERAPEUTIC TABLET PO SCH (08:45)
[2018-08-31] MEDS: OXYBUTYNIN CHLORIDE 5 MG TABLET PO SCH (08:45)
[2018-08-31] MEDS: SERTRALINE HCL 50 MG TABLET PO SCH (08:45)
[2018-08-31] MEDS: QUEtiapine FUMARATE 200 MG TABLET PO SCH ×2 (08:45→20:09)
[2018-08-31] MEDS: BENZTROPINE MESYLATE 2 MG TABLET PO SCH ×2 (08:45→20:09)
[2018-08-31] MEDS: LORazepam 2 MG TABLET PO PRN ×2 (08:54→21:16)
[2018-08-31] MEDS: HALOPERIDOL 5 MG TABLET PO PRN ×3 (08:54→21:16)
[2018-08-31 16:10] VITALS: BP 133/75
[2018-08-31] MEDS: ZOLPIDEM TARTRATE 10 MG TABLET PO PRN (21:16)
[2018-09-01] MEDS: LEVOTHYROXINE SODIUM 50 MCG TABLET PO SCH (06:45)
[2018-09-01] MEDS: HALOPERIDOL 5 MG TABLET PO PRN (07:56)
[2018-09-01] MEDS: DIVALPROEX SODIUM 250 MG ER TABLET PO SCH ×3 (07:56→17:50)
[2018-09-01] MEDS: QUEtiapine FUMARATE 200 MG TABLET PO SCH ×2 (07:56→20:31)
[2018-09-01] MEDS: OXYBUTYNIN CHLORIDE 5 MG TABLET PO SCH (07:56)
[2018-09-01] MEDS: MULTIVITAMINS, THERAPEUTIC TABLET PO SCH (07:56)
[2018-09-01] MEDS: LORazepam 2 MG TABLET PO PRN ×2 (07:56→20:35)
[2018-09-01] MEDS: BENZTROPINE MESYLATE 2 MG TABLET PO SCH ×2 (07:56→20:32)
[2018-09-01] MEDS: SERTRALINE HCL 50 MG TABLET PO SCH (07:56)
[2018-09-01 09:04] VITALS: BP 126/72
[2018-09-01 18:58] VITALS: BP 128/76
[2018-09-01] MEDS: ZOLPIDEM TARTRATE 10 MG TABLET PO PRN (21:50)
[2018-09-02] MEDS: LEVOTHYROXINE SODIUM 50 MCG TABLET PO SCH (06:37)
[2018-09-02] MEDS: DIVALPROEX SODIUM 250 MG ER TABLET PO SCH ×3 (09:20→16:36)
[2018-09-02] MEDS: OXYBUTYNIN CHLORIDE 5 MG TABLET PO SCH (09:20)
[2018-09-02] MEDS: BENZTROPINE MESYLATE 2 MG TABLET PO SCH ×2 (09:20→20:44)
[2018-09-02] MEDS: SERTRALINE HCL 50 MG TABLET PO SCH (09:20)
[2018-09-02] MEDS: MULTIVITAMINS, THERAPEUTIC TABLET PO SCH (09:20)
[2018-09-02] MEDS: QUEtiapine FUMARATE 200 MG TABLET PO SCH ×2 (09:20→20:45)
[2018-09-02 12:19] VITALS: BP 145/84
[2018-09-02] MEDS: LORazepam 2 MG TABLET PO PRN (13:41)
[2018-09-02] MEDS: HALOPERIDOL 5 MG TABLET PO PRN ×2 (13:41→20:45)
[2018-09-02 18:11] VITALS: BP 155/84
[2018-09-02] MEDS: ZOLPIDEM TARTRATE 10 MG TABLET PO PRN (23:49)
[2018-09-03 05:41] VITALS: BP 128/84
[2018-09-03] MEDS: LEVOTHYROXINE SODIUM 50 MCG TABLET PO SCH (06:53)
[2018-09-03] MEDS: HALOPERIDOL 5 MG TABLET PO PRN ×2 (09:26→21:29)
[2018-09-03] MEDS: OXYBUTYNIN CHLORIDE 5 MG TABLET PO SCH (09:27)
[2018-09-03] MEDS: QUEtiapine FUMARATE 200 MG TABLET PO SCH ×2 (09:27→21:29)
[2018-09-03] MEDS: SERTRALINE HCL 50 MG TABLET PO SCH (09:27)
[2018-09-03] MEDS: DIVALPROEX SODIUM 250 MG ER TABLET PO SCH ×3 (09:27→17:07)
[2018-09-03] MEDS: MULTIVITAMINS, THERAPEUTIC TABLET PO SCH (09:27)
[2018-09-03] MEDS: BENZTROPINE MESYLATE 2 MG TABLET PO SCH ×2 (09:27→21:29)
[2018-09-03 10:08] VITALS: BP 134/88
[2018-09-03 16:25] VITALS: BP 129/79
[2018-09-03] MEDS: ZOLPIDEM TARTRATE 10 MG TABLET PO PRN (21:29)
[2018-09-04 03:14] VITALS: BP 128/79
[2018-09-04] MEDS: LEVOTHYROXINE SODIUM 50 MCG TABLET PO SCH (06:53)
[2018-09-04] MEDS: DIVALPROEX SODIUM 250 MG ER TABLET PO SCH ×3 (08:11→16:58)
[2018-09-04] MEDS: MULTIVITAMINS, THERAPEUTIC TABLET PO SCH (08:12)
[2018-09-04] MEDS: OXYBUTYNIN CHLORIDE 5 MG TABLET PO SCH (08:12)
[2018-09-04] MEDS: SERTRALINE HCL 50 MG TABLET PO SCH (08:12)
[2018-09-04] MEDS: LORazepam 2 MG TABLET PO PRN (08:12)
[2018-09-04] MEDS: QUEtiapine FUMARATE 200 MG TABLET PO SCH ×2 (08:12→20:23)
[2018-09-04] MEDS: BENZTROPINE MESYLATE 2 MG TABLET PO SCH ×2 (08:12→20:23)
[2018-09-04] MEDS: HALOPERIDOL 5 MG TABLET PO PRN ×2 (08:12→19:08)
[2018-09-04 16:36] VITALS: BP 117/84
[2018-09-04] MEDS: ZOLPIDEM TARTRATE 10 MG TABLET PO PRN (23:05)
[2018-09-05 06:00] VITALS: BP 149/86
[2018-09-05] MEDS: HALOPERIDOL 5 MG TABLET PO PRN ×4 (06:26→21:26)
[2018-09-05] MEDS: LEVOTHYROXINE SODIUM 50 MCG TABLET PO SCH (06:26)
[2018-09-05 08:13] VITALS: BP 127/88
[2018-09-05] MEDS: SERTRALINE HCL 50 MG TABLET PO SCH (08:39)
[2018-09-05] MEDS: QUEtiapine FUMARATE 200 MG TABLET PO SCH ×2 (08:39→21:25)
[2018-09-05] MEDS: MULTIVITAMINS, THERAPEUTIC TABLET PO SCH (08:39)
[2018-09-05] MEDS: OXYBUTYNIN CHLORIDE 5 MG TABLET PO SCH (08:39)
[2018-09-05] MEDS: DIVALPROEX SODIUM 250 MG ER TABLET PO SCH ×3 (08:39→16:39)
[2018-09-05] MEDS: BENZTROPINE MESYLATE 2 MG TABLET PO SCH ×2 (08:39→21:25)
[2018-09-05] MEDS: LORazepam 2 MG TABLET PO PRN (12:16)
[2018-09-05 18:24] VITALS: BP 140/80
[2018-09-05] MEDS: ZOLPIDEM TARTRATE 10 MG TABLET PO PRN (21:25)
[2018-09-06] MEDS: LEVOTHYROXINE SODIUM 50 MCG TABLET PO SCH (07:01)
[2018-09-06] MEDS: QUEtiapine FUMARATE 200 MG TABLET PO SCH ×2 (08:31→21:14)
[2018-09-06] MEDS: DIVALPROEX SODIUM 250 MG ER TABLET PO SCH ×3 (08:31→16:48)
[2018-09-06] MEDS: OXYBUTYNIN CHLORIDE 5 MG TABLET PO SCH (08:31)
[2018-09-06] MEDS: HALOPERIDOL 5 MG TABLET PO PRN ×2 (08:31→21:26)
[2018-09-06] MEDS: SERTRALINE HCL 50 MG TABLET PO SCH (08:31)
[2018-09-06] MEDS: MULTIVITAMINS, THERAPEUTIC TABLET PO SCH (08:31)
[2018-09-06] MEDS: BENZTROPINE MESYLATE 2 MG TABLET PO SCH ×2 (08:31→21:14)
[2018-09-06 09:00] VITALS: BP 134/86
[2018-09-06 17:51] VITALS: BP 138/82
[2018-09-06] MEDS: ZOLPIDEM TARTRATE 10 MG TABLET PO PRN (23:15)
[2018-09-06] MEDS: LORazepam 2 MG TABLET PO PRN (23:15)
[2018-09-07] MEDS: LEVOTHYROXINE SODIUM 50 MCG TABLET PO SCH (06:49)
[2018-09-07] MEDS: QUEtiapine FUMARATE 200 MG TABLET PO SCH ×2 (09:16→20:41)
[2018-09-07] MEDS: MULTIVITAMINS, THERAPEUTIC TABLET PO SCH (09:16)
[2018-09-07] MEDS: LORazepam 2 MG TABLET PO PRN (09:16)
[2018-09-07] MEDS: BENZTROPINE MESYLATE 2 MG TABLET PO SCH ×2 (09:16→20:41)
[2018-09-07] MEDS: OXYBUTYNIN CHLORIDE 5 MG TABLET PO SCH (09:16)
[2018-09-07] MEDS: HALOPERIDOL 5 MG TABLET PO PRN ×2 (09:16→20:41)
[2018-09-07] MEDS: SERTRALINE HCL 50 MG TABLET PO SCH (09:16)
[2018-09-07] MEDS: DIVALPROEX SODIUM 250 MG ER TABLET PO SCH ×3 (09:16→17:27)
[2018-09-07 13:22] VITALS: BP 143/93
[2018-09-07 16:07] VITALS: BP 135/80
[2018-09-08 00:05] VITALS: BP 135/85
[2018-09-08] MEDS: ZOLPIDEM TARTRATE 10 MG TABLET PO PRN ×2 (00:11→22:47)
[2018-09-08] MEDS: LORazepam 2 MG TABLET PO PRN (00:11)
[2018-09-08] MEDS: LEVOTHYROXINE SODIUM 50 MCG TABLET PO SCH (06:56)
[2018-09-08 08:12] VITALS: BP 148/99
[2018-09-08] MEDS: OXYBUTYNIN CHLORIDE 5 MG TABLET PO SCH (10:36)
[2018-09-08] MEDS: DIVALPROEX SODIUM 250 MG ER TABLET PO SCH ×3 (10:36→17:05)
[2018-09-08] MEDS: QUEtiapine FUMARATE 200 MG TABLET PO SCH ×2 (10:36→20:35)
[2018-09-08] MEDS: BENZTROPINE MESYLATE 2 MG TABLET PO SCH ×2 (10:37→20:35)
[2018-09-08] MEDS: MULTIVITAMINS, THERAPEUTIC TABLET PO SCH (10:37)
[2018-09-08] MEDS: SERTRALINE HCL 50 MG TABLET PO SCH (10:37)
[2018-09-08] MEDS: HALOPERIDOL 5 MG TABLET PO PRN ×2 (10:49→20:36)
[2018-09-08 16:07] VITALS: BP 139/86
[2018-09-09] MEDS: LORazepam 2 MG TABLET PO PRN ×3 (00:37→23:37)
[2018-09-09] MEDS: HALOPERIDOL 5 MG TABLET PO PRN ×2 (00:37→11:40)
[2018-09-09] MEDS: LEVOTHYROXINE SODIUM 50 MCG TABLET PO SCH (07:15)
[2018-09-09] MEDS: BENZTROPINE MESYLATE 2 MG TABLET PO SCH ×2 (08:33→20:19)
[2018-09-09] MEDS: QUEtiapine FUMARATE 200 MG TABLET PO SCH ×2 (08:33→20:19)
[2018-09-09] MEDS: MULTIVITAMINS, THERAPEUTIC TABLET PO SCH (08:34)
[2018-09-09] MEDS: SERTRALINE HCL 50 MG TABLET PO SCH (08:34)
[2018-09-09] MEDS: DIVALPROEX SODIUM 250 MG ER TABLET PO SCH ×3 (08:34→16:58)
[2018-09-09] MEDS: OXYBUTYNIN CHLORIDE 5 MG TABLET PO SCH (08:34)
[2018-09-09 09:36] VITALS: BP 131/88
[2018-09-09 18:27] VITALS: BP 128/76
[2018-09-09] MEDS: ZOLPIDEM TARTRATE 10 MG TABLET PO PRN (23:37)
[2018-09-10 00:07] VITALS: BP 144/86
[2018-09-10] MEDS: LEVOTHYROXINE SODIUM 50 MCG TABLET PO SCH (06:40)
[2018-09-10] MEDS: QUEtiapine FUMARATE 200 MG TABLET PO SCH ×2 (08:15→20:42)
[2018-09-10 08:21] VITALS: BP 103/59
[2018-09-10] MEDS: BENZTROPINE MESYLATE 2 MG TABLET PO SCH ×2 (10:00→20:42)
[2018-09-10] MEDS: OXYBUTYNIN CHLORIDE 5 MG TABLET PO SCH (10:00)
[2018-09-10] MEDS: MULTIVITAMINS, THERAPEUTIC TABLET PO SCH (10:00)
[2018-09-10] MEDS: SERTRALINE HCL 50 MG TABLET PO SCH (10:00)
[2018-09-10] MEDS: DIVALPROEX SODIUM 250 MG ER TABLET PO SCH ×3 (10:00→17:30)
[2018-09-10 16:19] VITALS: BP 139/80
[2018-09-10] MEDS: LORazepam 2 MG TABLET PO PRN (20:42)
[2018-09-10] MEDS: ZOLPIDEM TARTRATE 10 MG TABLET PO PRN (20:42)
[2018-09-11] MEDS: LEVOTHYROXINE SODIUM 50 MCG TABLET PO SCH (06:48)
[2018-09-11 08:04] VITALS: BP 126/93
[2018-09-11] MEDS: QUEtiapine FUMARATE 200 MG TABLET PO SCH ×2 (09:44→20:37)
[2018-09-11] MEDS: DIVALPROEX SODIUM 250 MG ER TABLET PO SCH ×3 (09:44→17:44)
[2018-09-11] MEDS: SERTRALINE HCL 50 MG TABLET PO SCH (09:44)
[2018-09-11] MEDS: BENZTROPINE MESYLATE 2 MG TABLET PO SCH ×2 (09:44→20:37)
[2018-09-11] MEDS: MULTIVITAMINS, THERAPEUTIC TABLET PO SCH (09:44)
[2018-09-11] MEDS: OXYBUTYNIN CHLORIDE 5 MG TABLET PO SCH (09:44)
[2018-09-11] MEDS: HALOPERIDOL 5 MG TABLET PO PRN ×2 (09:46→17:44)
[2018-09-11] MEDS: LORazepam 2 MG TABLET PO PRN (09:46)
[2018-09-11 16:00] VITALS: BP 119/87
[2018-09-11] MEDS: ZOLPIDEM TARTRATE 10 MG TABLET PO PRN (20:37)
[2018-09-12] MEDS: HALOPERIDOL 5 MG TABLET PO PRN ×3 (00:33→20:04)
[2018-09-12 05:18] VITALS: BP 135/81
[2018-09-12] MEDS: LEVOTHYROXINE SODIUM 50 MCG TABLET PO SCH (07:02)
[2018-09-12 08:32] VITALS: BP 137/77
[2018-09-12] MEDS: BENZTROPINE MESYLATE 2 MG TABLET PO SCH ×2 (10:07→20:04)
[2018-09-12] MEDS: QUEtiapine FUMARATE 200 MG TABLET PO SCH ×2 (10:08→20:04)
[2018-09-12] MEDS: SERTRALINE HCL 50 MG TABLET PO SCH (10:08)
[2018-09-12] MEDS: DIVALPROEX SODIUM 250 MG ER TABLET PO SCH ×3 (10:08→16:18)
[2018-09-12] MEDS: MULTIVITAMINS, THERAPEUTIC TABLET PO SCH (10:08)
[2018-09-12] MEDS: OXYBUTYNIN CHLORIDE 5 MG TABLET PO SCH (10:10)
[2018-09-12 16:23] VITALS: BP 129/79
[2018-09-12] MEDS: ZOLPIDEM TARTRATE 10 MG TABLET PO PRN (20:04)
[2018-09-12] MEDS: LORazepam 2 MG TABLET PO PRN (23:59)
[2018-09-13] MEDS: LEVOTHYROXINE SODIUM 50 MCG TABLET PO SCH (06:58)
[2018-09-13 08:05] VITALS: BP 148/68
[2018-09-13] MEDS: LORazepam 2 MG TABLET PO PRN ×2 (08:34→23:29)
[2018-09-13] MEDS: HALOPERIDOL 5 MG TABLET PO PRN ×3 (08:34→21:26)
[2018-09-13] MEDS: DIVALPROEX SODIUM 250 MG ER TABLET PO SCH ×3 (08:34→17:47)
[2018-09-13] MEDS: QUEtiapine FUMARATE 200 MG TABLET PO SCH ×2 (08:34→21:26)
[2018-09-13] MEDS: MULTIVITAMINS, THERAPEUTIC TABLET PO SCH (08:34)
[2018-09-13] MEDS: BENZTROPINE MESYLATE 2 MG TABLET PO SCH ×2 (08:34→21:26)
[2018-09-13] MEDS: SERTRALINE HCL 50 MG TABLET PO SCH (08:35)
[2018-09-13] MEDS: OXYBUTYNIN CHLORIDE 5 MG TABLET PO SCH (08:36)
[2018-09-13 16:00] VITALS: BP 126/83
[2018-09-13] MEDS: ZOLPIDEM TARTRATE 10 MG TABLET PO PRN (23:42)
[2018-09-14] MEDS: LEVOTHYROXINE SODIUM 50 MCG TABLET PO SCH (06:50)
[2018-09-14 09:32] VITALS: BP 122/89
[2018-09-14] MEDS: BENZTROPINE MESYLATE 2 MG TABLET PO SCH ×2 (10:25→20:40)
[2018-09-14] MEDS: DIVALPROEX SODIUM 250 MG ER TABLET PO SCH ×3 (10:26→16:36)
[2018-09-14] MEDS: SERTRALINE HCL 50 MG TABLET PO SCH (10:26)
[2018-09-14] MEDS: OXYBUTYNIN CHLORIDE 5 MG TABLET PO SCH (10:26)
[2018-09-14] MEDS: MULTIVITAMINS, THERAPEUTIC TABLET PO SCH (10:27)
[2018-09-14] MEDS: QUEtiapine FUMARATE 200 MG TABLET PO SCH ×2 (10:27→20:40)
[2018-09-14] MEDS: HALOPERIDOL 5 MG TABLET PO PRN (10:31)
[2018-09-14 16:28] VITALS: BP 132/77
[2018-09-14] MEDS ORDERED: HALOPERIDOL LACTATE 5 MG/ML VIAL ONE (23:05)
[2018-09-14] MEDS ORDERED: LORazepam 2 MG/ML VIAL ONE (23:05)
[2018-09-14] MEDS ORDERED: DiphenhydrAMINE HCL 50 MG/ML VIAL ONE (23:05)
[2018-09-14] MEDS ORDERED: LORazepam 2 MG/ML VIAL IM ONE (23:15)
[2018-09-14] MEDS ORDERED: DiphenhydrAMINE HCL 50 MG/ML VIAL IM ONE (23:15)
[2018-09-14] MEDS ORDERED: HALOPERIDOL LACTATE 5 MG/ML VIAL IM ONE (23:15)
[2018-09-15 06:32] VITALS: BP 128/67
[2018-09-15] MEDS: LEVOTHYROXINE SODIUM 50 MCG TABLET PO SCH (06:54)
[2018-09-15] MEDS: SERTRALINE HCL 50 MG TABLET PO SCH (08:56)
[2018-09-15] MEDS: DIVALPROEX SODIUM 250 MG ER TABLET PO SCH ×3 (08:56→16:46)
[2018-09-15] MEDS: MULTIVITAMINS, THERAPEUTIC TABLET PO SCH (08:57)
[2018-09-15] MEDS: OXYBUTYNIN CHLORIDE 5 MG TABLET PO SCH (08:57)
[2018-09-15] MEDS: QUEtiapine FUMARATE 200 MG TABLET PO SCH ×2 (08:57→21:06)
[2018-09-15] MEDS: BENZTROPINE MESYLATE 2 MG TABLET PO SCH ×2 (08:57→21:06)
[2018-09-15] MEDS: HALOPERIDOL 5 MG TABLET PO PRN ×2 (08:59→21:13)
[2018-09-15 16:00] VITALS: BP 141/90
[2018-09-15] MEDS: ZOLPIDEM TARTRATE 10 MG TABLET PO PRN (21:08)
[2018-09-15] MEDS: LORazepam 2 MG TABLET PO PRN (23:50)
[2018-09-16] MEDS: LEVOTHYROXINE SODIUM 50 MCG TABLET PO SCH (06:59)
[2018-09-16] MEDS: MULTIVITAMINS, THERAPEUTIC TABLET PO SCH (08:31)
[2018-09-16] MEDS: BENZTROPINE MESYLATE 2 MG TABLET PO SCH ×2 (08:31→22:00)
[2018-09-16] MEDS: SERTRALINE HCL 50 MG TABLET PO SCH (08:31)
[2018-09-16] MEDS: QUEtiapine FUMARATE 200 MG TABLET PO SCH ×2 (08:32→22:01)
[2018-09-16] MEDS: DIVALPROEX SODIUM 250 MG ER TABLET PO SCH ×3 (08:32→16:49)
[2018-09-16] MEDS: OXYBUTYNIN CHLORIDE 5 MG TABLET PO SCH (08:33)
[2018-09-16] MEDS: HALOPERIDOL 5 MG TABLET PO PRN ×3 (08:37→23:55)
[2018-09-16] MEDS: LORazepam 2 MG TABLET PO PRN ×2 (08:37→23:55)
[2018-09-16 09:36] VITALS: BP 126/78
[2018-09-16 17:45] VITALS: BP 131/74
[2018-09-17] MEDS: ZOLPIDEM TARTRATE 10 MG TABLET PO PRN (00:56)
[2018-09-17] MEDS: LEVOTHYROXINE SODIUM 50 MCG TABLET PO SCH (06:55)
[2018-09-17 08:00] VITALS: BP 114/77
[2018-09-17] MEDS: DIVALPROEX SODIUM 250 MG ER TABLET PO SCH ×3 (08:57→16:07)
[2018-09-17] MEDS: BENZTROPINE MESYLATE 2 MG TABLET PO SCH ×2 (08:57→20:23)
[2018-09-17] MEDS: SERTRALINE HCL 50 MG TABLET PO SCH (08:57)
[2018-09-17] MEDS: OXYBUTYNIN CHLORIDE 5 MG TABLET PO SCH (08:57)
[2018-09-17] MEDS: QUEtiapine FUMARATE 200 MG TABLET PO SCH ×2 (08:57→20:23)
[2018-09-17] MEDS: MULTIVITAMINS, THERAPEUTIC TABLET PO SCH (08:57)
[2018-09-17 09:07] VITALS: BP 114/77
[2018-09-17] MEDS: HALOPERIDOL 5 MG TABLET PO PRN (16:09)
[2018-09-17 16:57] VITALS: BP 121/82
[2018-09-18] MEDS: ZOLPIDEM TARTRATE 10 MG TABLET PO PRN ×2 (00:35→20:43)
[2018-09-18] MEDS: LEVOTHYROXINE SODIUM 50 MCG TABLET PO SCH (06:55)
[2018-09-18] MEDS: MULTIVITAMINS, THERAPEUTIC TABLET PO SCH (08:10)
[2018-09-18] MEDS: QUEtiapine FUMARATE 200 MG TABLET PO SCH ×2 (08:11→20:04)
[2018-09-18] MEDS: BENZTROPINE MESYLATE 2 MG TABLET PO SCH ×2 (08:11→20:04)
[2018-09-18] MEDS: OXYBUTYNIN CHLORIDE 5 MG TABLET PO SCH (08:11)
[2018-09-18] MEDS: DIVALPROEX SODIUM 250 MG ER TABLET PO SCH ×3 (08:11→16:24)
[2018-09-18] MEDS: SERTRALINE HCL 50 MG TABLET PO SCH (08:11)
[2018-09-18 08:45] VITALS: BP 122/77
[2018-09-18] MEDS: HALOPERIDOL 5 MG TABLET PO PRN (16:24)
[2018-09-18] MEDS: LORazepam 2 MG TABLET PO PRN (16:24)
[2018-09-18 16:45] VITALS: BP 126/83
[2018-09-19] MEDS: LEVOTHYROXINE SODIUM 50 MCG TABLET PO SCH ×2 (06:07→08:05)
[2018-09-19] MEDS: SERTRALINE HCL 50 MG TABLET PO SCH (08:03)
[2018-09-19] MEDS: LORazepam 2 MG TABLET PO PRN ×2 (08:03→19:07)
[2018-09-19] MEDS: MULTIVITAMINS, THERAPEUTIC TABLET PO SCH (08:04)
[2018-09-19] MEDS: QUEtiapine FUMARATE 200 MG TABLET PO SCH ×2 (08:04→20:22)
[2018-09-19] MEDS: BENZTROPINE MESYLATE 2 MG TABLET PO SCH ×2 (08:04→20:22)
[2018-09-19] MEDS: DIVALPROEX SODIUM 250 MG ER TABLET PO SCH ×3 (08:04→17:01)
[2018-09-19] MEDS: HALOPERIDOL 5 MG TABLET PO PRN ×2 (08:04→19:07)
[2018-09-19] MEDS: OXYBUTYNIN CHLORIDE 5 MG TABLET PO SCH (08:04)
[2018-09-19 08:27] VITALS: BP 135/79
[2018-09-19 16:00] VITALS: BP 134/80
[2018-09-20] MEDS: LEVOTHYROXINE SODIUM 50 MCG TABLET PO SCH ×2 (07:00→09:43)
[2018-09-20 08:18] VITALS: BP 127/68
[2018-09-20] MEDS: DIVALPROEX SODIUM 250 MG ER TABLET PO SCH ×3 (09:40→16:33)
[2018-09-20] MEDS: OXYBUTYNIN CHLORIDE 5 MG TABLET PO SCH (09:40)
[2018-09-20] MEDS: MULTIVITAMINS, THERAPEUTIC TABLET PO SCH (09:42)
[2018-09-20] MEDS: SERTRALINE HCL 50 MG TABLET PO SCH (09:42)
[2018-09-20] MEDS: LORazepam 2 MG TABLET PO PRN ×2 (09:42→09:44)
[2018-09-20] MEDS: QUEtiapine FUMARATE 200 MG TABLET PO SCH ×2 (09:42→20:40)
[2018-09-20] MEDS: BENZTROPINE MESYLATE 2 MG TABLET PO SCH ×2 (09:42→20:40)
[2018-09-20] MEDS: HALOPERIDOL 5 MG TABLET PO PRN ×2 (09:42→09:44)
[2018-09-20 16:00] VITALS: BP 135/78
[2018-09-21] MEDS: OXYBUTYNIN CHLORIDE 5 MG TABLET PO SCH (08:12)
[2018-09-21] MEDS: QUEtiapine FUMARATE 200 MG TABLET PO SCH ×2 (08:12→20:14)
[2018-09-21] MEDS: DIVALPROEX SODIUM 250 MG ER TABLET PO SCH ×3 (08:13→17:45)
[2018-09-21] MEDS: MULTIVITAMINS, THERAPEUTIC TABLET PO SCH (08:14)
[2018-09-21] MEDS: SERTRALINE HCL 50 MG TABLET PO SCH (08:14)
[2018-09-21] MEDS: BENZTROPINE MESYLATE 2 MG TABLET PO SCH ×2 (08:14→20:14)
[2018-09-21] MEDS: HALOPERIDOL 5 MG TABLET PO PRN ×2 (08:17→23:52)
[2018-09-21 08:23] VITALS: BP 120/73
[2018-09-21 16:55] VITALS: BP 127/79
[2018-09-21] MEDS: ZOLPIDEM TARTRATE 10 MG TABLET PO PRN (23:52)
[2018-09-22] MEDS: LEVOTHYROXINE SODIUM 50 MCG TABLET PO SCH (06:52)
[2018-09-22] MEDS: BENZTROPINE MESYLATE 2 MG TABLET PO SCH ×2 (07:52→20:20)
[2018-09-22] MEDS: SERTRALINE HCL 50 MG TABLET PO SCH (07:52)
[2018-09-22] MEDS: HALOPERIDOL 5 MG TABLET PO PRN ×2 (07:52→16:07)
[2018-09-22] MEDS: QUEtiapine FUMARATE 200 MG TABLET PO SCH ×2 (07:52→20:19)
[2018-09-22] MEDS: MULTIVITAMINS, THERAPEUTIC TABLET PO SCH (07:52)
[2018-09-22] MEDS: OXYBUTYNIN CHLORIDE 5 MG TABLET PO SCH (07:53)
[2018-09-22] MEDS: DIVALPROEX SODIUM 250 MG ER TABLET PO SCH ×3 (07:53→16:07)
[2018-09-22 08:00] VITALS: BP 132/78
[2018-09-22 16:00] VITALS: BP 128/80
[2018-09-22] MEDS: LORazepam 2 MG TABLET PO PRN (16:07)
[2018-09-22 23:40] VITALS: BP 138/92
[2018-09-22] MEDS: ZOLPIDEM TARTRATE 10 MG TABLET PO PRN (23:46)
[2018-09-22] MEDS: ACETAMINOPHEN 325 MG TABLET PO PRN (23:46)
[2018-09-23] MEDS: LEVOTHYROXINE SODIUM 50 MCG TABLET PO SCH (06:58)
[2018-09-23 08:00] VITALS: BP 125/70
[2018-09-23] MEDS: OXYBUTYNIN CHLORIDE 5 MG TABLET PO SCH (08:32)
[2018-09-23] MEDS: BENZTROPINE MESYLATE 2 MG TABLET PO SCH ×2 (08:32→20:31)
[2018-09-23] MEDS: SERTRALINE HCL 50 MG TABLET PO SCH (08:32)
[2018-09-23] MEDS: MULTIVITAMINS, THERAPEUTIC TABLET PO SCH (08:33)
[2018-09-23] MEDS: DIVALPROEX SODIUM 250 MG ER TABLET PO SCH ×3 (08:33→16:20)
[2018-09-23] MEDS: QUEtiapine FUMARATE 200 MG TABLET PO SCH ×2 (08:35→20:31)
[2018-09-23] MEDS: HALOPERIDOL 5 MG TABLET PO PRN ×2 (08:38→16:20)
[2018-09-23] MEDS ORDERED: LORazepam 2 MG/ML VIAL ONE (09:10)
[2018-09-23] MEDS ORDERED: DiphenhydrAMINE HCL 50 MG/ML VIAL ONE (09:10)
[2018-09-23] MEDS ORDERED: HALOPERIDOL LACTATE 5 MG/ML VIAL ONE (09:11)
[2018-09-23] MEDS ORDERED: LORazepam 2 MG/ML VIAL IM ONE (09:15)
[2018-09-23] MEDS ORDERED: DiphenhydrAMINE HCL 50 MG/ML VIAL IM ONE (09:15)
[2018-09-23] MEDS ORDERED: HALOPERIDOL LACTATE 5 MG/ML VIAL IM ONE (09:15)
[2018-09-23 16:00] VITALS: BP 150/81
[2018-09-23] MEDS: LORazepam 2 MG TABLET PO PRN (16:20)
[2018-09-24] MEDS: LEVOTHYROXINE SODIUM 50 MCG TABLET PO SCH (06:55)
[2018-09-24] MEDS: QUEtiapine FUMARATE 200 MG TABLET PO SCH ×2 (08:07→21:12)
[2018-09-24] MEDS: BENZTROPINE MESYLATE 2 MG TABLET PO SCH ×2 (08:07→21:12)
[2018-09-24] MEDS: DIVALPROEX SODIUM 250 MG ER TABLET PO SCH ×3 (08:08→16:04)
[2018-09-24] MEDS: SERTRALINE HCL 50 MG TABLET PO SCH (08:08)
[2018-09-24] MEDS: OXYBUTYNIN CHLORIDE 5 MG TABLET PO SCH (08:08)
[2018-09-24] MEDS: MULTIVITAMINS, THERAPEUTIC TABLET PO SCH (08:08)
[2018-09-24] MEDS: HALOPERIDOL 5 MG TABLET PO PRN ×2 (08:11→16:04)
[2018-09-24 08:32] VITALS: BP 132/86
[2018-09-24 16:00] VITALS: BP 139/90
[2018-09-24] MEDS: LORazepam 2 MG TABLET PO PRN (16:04)
[2018-09-25] MEDS: LEVOTHYROXINE SODIUM 50 MCG TABLET PO SCH (07:00)
[2018-09-25 08:33] VITALS: BP_SYST 76
[2018-09-25] MEDS: BENZTROPINE MESYLATE 2 MG TABLET PO SCH ×2 (08:33→20:25)
[2018-09-25] MEDS: QUEtiapine FUMARATE 200 MG TABLET PO SCH ×2 (08:33→20:25)
[2018-09-25] MEDS: DIVALPROEX SODIUM 250 MG ER TABLET PO SCH ×3 (08:33→17:14)
[2018-09-25] MEDS: MULTIVITAMINS, THERAPEUTIC TABLET PO SCH (08:34)
[2018-09-25] MEDS: HALOPERIDOL 5 MG TABLET PO PRN ×2 (08:34→20:25)
[2018-09-25] MEDS: OXYBUTYNIN CHLORIDE 5 MG TABLET PO SCH (08:34)
[2018-09-25] MEDS: SERTRALINE HCL 50 MG TABLET PO SCH (08:34)
[2018-09-25 16:44] VITALS: BP 126/83
[2018-09-26] MEDS: LEVOTHYROXINE SODIUM 50 MCG TABLET PO SCH (07:00)
[2018-09-26] MEDS: HALOPERIDOL 5 MG TABLET PO PRN ×2 (08:39→23:59)
[2018-09-26] MEDS: QUEtiapine FUMARATE 200 MG TABLET PO SCH ×2 (08:39→20:31)
[2018-09-26] MEDS: BENZTROPINE MESYLATE 2 MG TABLET PO SCH ×2 (08:39→20:31)
[2018-09-26] MEDS: SERTRALINE HCL 50 MG TABLET PO SCH (08:39)
[2018-09-26] MEDS: MULTIVITAMINS, THERAPEUTIC TABLET PO SCH (08:39)
[2018-09-26] MEDS: DIVALPROEX SODIUM 250 MG ER TABLET PO SCH ×3 (08:40→16:32)
[2018-09-26] MEDS: OXYBUTYNIN CHLORIDE 5 MG TABLET PO SCH (08:40)
[2018-09-26 08:49] VITALS: BP 153/83
[2018-09-26 16:59] VITALS: BP 137/77
[2018-09-26] MEDS: ACETAMINOPHEN 325 MG TABLET PO PRN (17:24)
[2018-09-26] MEDS: ZOLPIDEM TARTRATE 10 MG TABLET PO PRN (23:59)
[2018-09-27] MEDS: LORazepam 2 MG TABLET PO PRN ×2 (01:02→08:05)
[2018-09-27] MEDS: LEVOTHYROXINE SODIUM 50 MCG TABLET PO SCH (07:00)
[2018-09-27 08:01] VITALS: BP 142/64
[2018-09-27] MEDS: BENZTROPINE MESYLATE 2 MG TABLET PO SCH ×2 (08:04→21:29)
[2018-09-27] MEDS: DIVALPROEX SODIUM 250 MG ER TABLET PO SCH ×3 (08:04→17:23)
[2018-09-27] MEDS: SERTRALINE HCL 50 MG TABLET PO SCH (08:05)
[2018-09-27] MEDS: QUEtiapine FUMARATE 200 MG TABLET PO SCH ×2 (08:05→21:30)
[2018-09-27] MEDS: OXYBUTYNIN CHLORIDE 5 MG TABLET PO SCH (08:05)
[2018-09-27] MEDS: HALOPERIDOL 5 MG TABLET PO PRN ×2 (08:05→16:16)
[2018-09-27] MEDS: MULTIVITAMINS, THERAPEUTIC TABLET PO SCH (08:05)
[2018-09-27 16:16] VITALS: BP 129/82
[2018-09-27] MEDS: ZOLPIDEM TARTRATE 10 MG TABLET PO PRN (21:30)
[2018-09-28] MEDS: LEVOTHYROXINE SODIUM 50 MCG TABLET PO SCH ×2 (06:57→09:16)
[2018-09-28 09:07] VITALS: BP 150/70
[2018-09-28] MEDS: DIVALPROEX SODIUM 250 MG ER TABLET PO SCH ×3 (09:15→16:24)
[2018-09-28] MEDS: OXYBUTYNIN CHLORIDE 5 MG TABLET PO SCH (09:15)
[2018-09-28] MEDS: SERTRALINE HCL 50 MG TABLET PO SCH (09:16)
[2018-09-28] MEDS: HALOPERIDOL 5 MG TABLET PO PRN ×2 (09:16→20:18)
[2018-09-28] MEDS: LORazepam 2 MG TABLET PO PRN (09:16)
[2018-09-28] MEDS: MULTIVITAMINS, THERAPEUTIC TABLET PO SCH (09:16)
[2018-09-28] MEDS: BENZTROPINE MESYLATE 2 MG TABLET PO SCH ×2 (09:16→20:18)
[2018-09-28] MEDS: QUEtiapine FUMARATE 200 MG TABLET PO SCH ×2 (09:17→20:18)
[2018-09-28 16:00] VITALS: BP 132/78
[2018-09-28] MEDS: ZOLPIDEM TARTRATE 10 MG TABLET PO PRN (20:21)
[2018-09-29 08:27] VITALS: BP 131/73
[2018-09-29] MEDS: DIVALPROEX SODIUM 250 MG ER TABLET PO SCH ×3 (08:38→17:07)
[2018-09-29] MEDS: OXYBUTYNIN CHLORIDE 5 MG TABLET PO SCH (08:39)
[2018-09-29] MEDS: QUEtiapine FUMARATE 200 MG TABLET PO SCH ×2 (08:39→20:28)
[2018-09-29] MEDS: SERTRALINE HCL 50 MG TABLET PO SCH (08:39)
[2018-09-29] MEDS: BENZTROPINE MESYLATE 2 MG TABLET PO SCH ×2 (08:39→20:28)
[2018-09-29] MEDS: HALOPERIDOL 5 MG TABLET PO PRN ×2 (08:39→20:28)
[2018-09-29] MEDS: MULTIVITAMINS, THERAPEUTIC TABLET PO SCH (08:39)
[2018-09-29] MEDS: LORazepam 2 MG TABLET PO PRN (08:39)
[2018-09-29 16:49] VITALS: BP 143/87
[2018-09-30] MEDS: LEVOTHYROXINE SODIUM 50 MCG TABLET PO SCH (07:02)
[2018-09-30 08:00] VITALS: BP 151/82
[2018-09-30] MEDS: DIVALPROEX SODIUM 250 MG ER TABLET PO SCH ×3 (08:40→16:40)
[2018-09-30] MEDS: BENZTROPINE MESYLATE 2 MG TABLET PO SCH ×2 (08:40→20:31)
[2018-09-30] MEDS: MULTIVITAMINS, THERAPEUTIC TABLET PO SCH (08:40)
[2018-09-30] MEDS: SERTRALINE HCL 50 MG TABLET PO SCH (08:40)
[2018-09-30] MEDS: OXYBUTYNIN CHLORIDE 5 MG TABLET PO SCH (08:40)
[2018-09-30] MEDS: QUEtiapine FUMARATE 200 MG TABLET PO SCH ×2 (08:41→20:31)
[2018-09-30] MEDS: LORazepam 2 MG TABLET PO PRN (08:43)
[2018-09-30] MEDS: HALOPERIDOL 5 MG TABLET PO PRN ×2 (08:44→16:40)
[2018-09-30 16:00] VITALS: BP 131/87
[2018-10-01] MEDS: LEVOTHYROXINE SODIUM 50 MCG TABLET PO SCH (06:37)
[2018-10-01] MEDS: BENZTROPINE MESYLATE 2 MG TABLET PO SCH ×2 (09:04→20:24)
[2018-10-01] MEDS: MULTIVITAMINS, THERAPEUTIC TABLET PO SCH (09:04)
[2018-10-01] MEDS: LORazepam 2 MG TABLET PO PRN (09:04)
[2018-10-01] MEDS: SERTRALINE HCL 50 MG TABLET PO SCH (09:04)
[2018-10-01] MEDS: HALOPERIDOL 5 MG TABLET PO PRN ×2 (09:04→20:26)
[2018-10-01] MEDS: OXYBUTYNIN CHLORIDE 5 MG TABLET PO SCH (09:05)
[2018-10-01] MEDS: DIVALPROEX SODIUM 250 MG ER TABLET PO SCH ×3 (09:05→16:03)
[2018-10-01] MEDS: QUEtiapine FUMARATE 200 MG TABLET PO SCH ×2 (09:05→20:24)
[2018-10-01 13:52] VITALS: BP 133/104
[2018-10-01 17:13] VITALS: BP 141/84
[2018-10-02] MEDS: LEVOTHYROXINE SODIUM 50 MCG TABLET PO SCH (06:42)
[2018-10-02 08:02] VITALS: BP 118/75
[2018-10-02] MEDS: HALOPERIDOL 5 MG TABLET PO PRN ×2 (08:03→20:16)
[2018-10-02] MEDS: MULTIVITAMINS, THERAPEUTIC TABLET PO SCH (08:03)
[2018-10-02] MEDS: BENZTROPINE MESYLATE 2 MG TABLET PO SCH ×2 (08:03→20:16)
[2018-10-02] MEDS: LORazepam 2 MG TABLET PO PRN (08:03)
[2018-10-02] MEDS: QUEtiapine FUMARATE 200 MG TABLET PO SCH ×2 (08:03→20:16)
[2018-10-02] MEDS: SERTRALINE HCL 50 MG TABLET PO SCH (08:03)
[2018-10-02] MEDS: OXYBUTYNIN CHLORIDE 5 MG TABLET PO SCH (08:04)
[2018-10-02] MEDS: DIVALPROEX SODIUM 250 MG ER TABLET PO SCH ×3 (08:04→16:39)
[2018-10-02] MEDS: ACETAMINOPHEN 325 MG TABLET PO PRN (09:46)
[2018-10-02 09:47] VITALS: BP 118/75
[2018-10-02 16:00] VITALS: BP 144/85
[2018-10-02] MEDS: ZOLPIDEM TARTRATE 10 MG TABLET PO PRN (21:43)
[2018-10-03] MEDS: LEVOTHYROXINE SODIUM 50 MCG TABLET PO SCH ×2 (06:47→07:10)
[2018-10-03] MEDS: DIVALPROEX SODIUM 250 MG ER TABLET PO SCH ×3 (08:39→16:16)
[2018-10-03] MEDS: MULTIVITAMINS, THERAPEUTIC TABLET PO SCH (08:40)
[2018-10-03] MEDS: BENZTROPINE MESYLATE 2 MG TABLET PO SCH ×2 (08:40→20:52)
[2018-10-03] MEDS: OXYBUTYNIN CHLORIDE 5 MG TABLET PO SCH (08:40)
[2018-10-03] MEDS: QUEtiapine FUMARATE 200 MG TABLET PO SCH ×2 (08:40→20:52)
[2018-10-03] MEDS: SERTRALINE HCL 50 MG TABLET PO SCH (08:40)
[2018-10-03 08:48] VITALS: BP 130/79
[2018-10-03 16:00] VITALS: BP 130/89
[2018-10-03] MEDS: HALOPERIDOL 5 MG TABLET PO PRN ×2 (16:53→20:52)
[2018-10-03] MEDS: LORazepam 2 MG TABLET PO PRN (18:21)
[2018-10-03] MEDS: IBUPROFEN 400 MG TABLET PO PRN (21:10)
[2018-10-03 21:11] VITALS: BP 128/78
[2018-10-03] MEDS: ZOLPIDEM TARTRATE 10 MG TABLET PO PRN (21:44)
[2018-10-04] MEDS: MULTIVITAMINS, THERAPEUTIC TABLET PO SCH (07:51)
[2018-10-04] MEDS: BENZTROPINE MESYLATE 2 MG TABLET PO SCH ×2 (07:51→20:02)
[2018-10-04] MEDS: OXYBUTYNIN CHLORIDE 5 MG TABLET PO SCH (07:52)
[2018-10-04] MEDS: QUEtiapine FUMARATE 200 MG TABLET PO SCH ×2 (07:52→20:02)
[2018-10-04] MEDS: LEVOTHYROXINE SODIUM 50 MCG TABLET PO SCH (07:52)
[2018-10-04] MEDS: SERTRALINE HCL 50 MG TABLET PO SCH (07:52)
[2018-10-04] MEDS: DIVALPROEX SODIUM 250 MG ER TABLET PO SCH ×3 (07:52→17:00)
[2018-10-04 08:42] VITALS: BP 140/92
[2018-10-04] MEDS: LORazepam 2 MG TABLET PO PRN (12:33)
[2018-10-04] MEDS: HALOPERIDOL 5 MG TABLET PO PRN ×3 (12:33→19:49)
[2018-10-04] MEDS: ZOLPIDEM TARTRATE 10 MG TABLET PO PRN (20:02)
[2018-10-04 21:46] VITALS: BP 135/91
[2018-10-05] MEDS: HALOPERIDOL 5 MG TABLET PO PRN (07:56)
[2018-10-05] MEDS: LORazepam 2 MG TABLET PO PRN (07:56)
[2018-10-05] MEDS: BENZTROPINE MESYLATE 2 MG TABLET PO SCH ×2 (08:06→20:15)
[2018-10-05] MEDS: SERTRALINE HCL 50 MG TABLET PO SCH (08:07)
[2018-10-05] MEDS: OXYBUTYNIN CHLORIDE 5 MG TABLET PO SCH (08:07)
[2018-10-05] MEDS: MULTIVITAMINS, THERAPEUTIC TABLET PO SCH (08:07)
[2018-10-05] MEDS: QUEtiapine FUMARATE 200 MG TABLET PO SCH ×2 (08:07→20:15)
[2018-10-05] MEDS: DIVALPROEX SODIUM 250 MG ER TABLET PO SCH ×3 (08:07→16:34)
[2018-10-05 09:03] VITALS: BP 149/89
[2018-10-05 16:50] VITALS: BP 123/76
[2018-10-06 06:44] LABS: BASOPHILS % (AUTO) 0.5 % (0.0-2.0); EOSINOPHILS % (AUTO) 2.2 % (1.0-6.0); HEMATOCRIT 42.5 % (41-53); LYMPHOCYTES # (AUTO) 2.4 K/uL (1.0-4.8); LYMPHOCYTES % (AUTO) 47.3 % (22.0-44.0); MEAN CORPUSCULAR HEMOGLOBIN 31.3 pg (26.0-34.0); MEAN CORPUSCULAR HGB CONC 35.4 G/dL (31.0-37.0); MEAN CORPUSCULAR VOLUME 88 fL (80-100); MONOCYTES # (AUTO) 0.5 K/uL (0.1-1.0); MONOCYTES % (AUTO) 10.3 % (2.0-9.0); NEUTROPHILS % (AUTO) 39.7 % (40.0-70.0); PLATELET COUNT (AUTO) 158 K/uL (150-450); RED BLOOD CELL COUNT(AUTO) 4.81 MIL/uL (4.50-5.90); RED CELL DISTRIBUTION WIDTH 14.1 % (11.5-14.5)
[2018-10-06 06:52] LABS: ANION GAP 4 mmol/L (8-16); CALCIUM, TOTAL 8.9 mg/dL (8.8-10.5); CARBON DIOXIDE 33 mmol/L (22-29); CHLORIDE 100 mmol/L (98-107); CREATININE 1.11 mg/dL (0.60-1.30); GLOMERULAR FILTR. RATE CALC > 60 mL/min (>60); GLUCOSE,RANDOM 91 mg/dL (70-110); POTASSIUM 4.2 mmol/L (3.5-5.1); SODIUM SERUM 137 mmol/L (136-145); UREA NITROGEN, BLOOD 7 mg/dL (7-18)
[2018-10-06] MEDS: LEVOTHYROXINE SODIUM 50 MCG TABLET PO SCH (07:05)
[2018-10-06] MEDS: BENZTROPINE MESYLATE 2 MG TABLET PO SCH ×2 (08:15→20:25)
[2018-10-06] MEDS: OXYBUTYNIN CHLORIDE 5 MG TABLET PO SCH (08:15)
[2018-10-06] MEDS: QUEtiapine FUMARATE 200 MG TABLET PO SCH ×2 (08:15→20:25)
[2018-10-06] MEDS: DIVALPROEX SODIUM 250 MG ER TABLET PO SCH ×3 (08:15→16:32)
[2018-10-06] MEDS: SERTRALINE HCL 50 MG TABLET PO SCH (08:15)
[2018-10-06] MEDS: MULTIVITAMINS, THERAPEUTIC TABLET PO SCH (08:15)
[2018-10-06] MEDS: LORazepam 2 MG TABLET PO PRN (08:18)
[2018-10-06] MEDS: HALOPERIDOL 5 MG TABLET PO PRN ×3 (08:18→20:25)
[2018-10-06 09:14] VITALS: BP 131/71
[2018-10-06 16:35] VITALS: BP 138/82
[2018-10-06] MEDS: ZOLPIDEM TARTRATE 10 MG TABLET PO PRN (20:34)
[2018-10-07] MEDS: LEVOTHYROXINE SODIUM 50 MCG TABLET PO SCH (06:00)
[2018-10-07] MEDS: QUEtiapine FUMARATE 200 MG TABLET PO SCH ×2 (07:52→20:08)
[2018-10-07] MEDS: LORazepam 2 MG TABLET PO PRN ×2 (07:52→16:51)
[2018-10-07] MEDS: DIVALPROEX SODIUM 250 MG ER TABLET PO SCH ×3 (07:52→16:51)
[2018-10-07] MEDS: OXYBUTYNIN CHLORIDE 5 MG TABLET PO SCH (07:52)
[2018-10-07] MEDS: SERTRALINE HCL 50 MG TABLET PO SCH (07:52)
[2018-10-07] MEDS: BENZTROPINE MESYLATE 2 MG TABLET PO SCH ×2 (07:52→20:08)
[2018-10-07] MEDS: MULTIVITAMINS, THERAPEUTIC TABLET PO SCH (07:52)
[2018-10-07] MEDS: HALOPERIDOL 5 MG TABLET PO PRN ×3 (07:53→21:30)
[2018-10-07 08:19] VITALS: BP 148/101
[2018-10-07 16:00] VITALS: BP 123/69
[2018-10-07] MEDS: ZOLPIDEM TARTRATE 10 MG TABLET PO PRN (21:30)
[2018-10-08] MEDS: LEVOTHYROXINE SODIUM 50 MCG TABLET PO SCH (06:23)
[2018-10-08] MEDS: LORazepam 2 MG TABLET PO PRN (08:11)
[2018-10-08] MEDS: OXYBUTYNIN CHLORIDE 5 MG TABLET PO SCH (08:12)
[2018-10-08] MEDS: BENZTROPINE MESYLATE 2 MG TABLET PO SCH ×2 (08:12→20:24)
[2018-10-08] MEDS: DIVALPROEX SODIUM 250 MG ER TABLET PO SCH ×3 (08:12→16:47)
[2018-10-08] MEDS: SERTRALINE HCL 50 MG TABLET PO SCH (08:12)
[2018-10-08] MEDS: MULTIVITAMINS, THERAPEUTIC TABLET PO SCH (08:12)
[2018-10-08] MEDS: QUEtiapine FUMARATE 200 MG TABLET PO SCH ×2 (08:12→20:24)
[2018-10-08] MEDS: HALOPERIDOL 5 MG TABLET PO PRN (08:12)
[2018-10-08 08:34] VITALS: BP 144/86
[2018-10-08 16:10] VITALS: BP 131/88
[2018-10-08] MEDS: ZOLPIDEM TARTRATE 10 MG TABLET PO PRN (20:24)
[2018-10-09] MEDS: LEVOTHYROXINE SODIUM 50 MCG TABLET PO SCH (06:43)
[2018-10-09 08:00] VITALS: BP 134/77
[2018-10-09] MEDS: OXYBUTYNIN CHLORIDE 5 MG TABLET PO SCH (08:13)
[2018-10-09] MEDS: MULTIVITAMINS, THERAPEUTIC TABLET PO SCH (08:13)
[2018-10-09] MEDS: HALOPERIDOL 5 MG TABLET PO PRN ×3 (08:13→22:49)
[2018-10-09] MEDS: QUEtiapine FUMARATE 200 MG TABLET PO SCH ×2 (08:13→20:45)
[2018-10-09] MEDS: DIVALPROEX SODIUM 250 MG ER TABLET PO SCH ×3 (08:13→16:39)
[2018-10-09] MEDS: LORazepam 2 MG TABLET PO PRN ×2 (08:13→16:39)
[2018-10-09] MEDS: BENZTROPINE MESYLATE 2 MG TABLET PO SCH ×2 (08:13→20:45)
[2018-10-09] MEDS: SERTRALINE HCL 50 MG TABLET PO SCH (08:13)
[2018-10-09 16:30] VITALS: BP 130/77
[2018-10-09] MEDS: ZOLPIDEM TARTRATE 10 MG TABLET PO PRN (22:49)
[2018-10-10] MEDS: LEVOTHYROXINE SODIUM 50 MCG TABLET PO SCH (06:13)
[2018-10-10] MEDS: HALOPERIDOL 5 MG TABLET PO PRN ×2 (09:05→21:41)
[2018-10-10] MEDS: BENZTROPINE MESYLATE 2 MG TABLET PO SCH ×2 (09:05→20:24)
[2018-10-10] MEDS: SERTRALINE HCL 50 MG TABLET PO SCH (09:06)
[2018-10-10] MEDS: QUEtiapine FUMARATE 200 MG TABLET PO SCH ×2 (09:06→20:24)
[2018-10-10] MEDS: OXYBUTYNIN CHLORIDE 5 MG TABLET PO SCH (09:06)
[2018-10-10] MEDS: LORazepam 2 MG TABLET PO PRN (09:06)
[2018-10-10] MEDS: MULTIVITAMINS, THERAPEUTIC TABLET PO SCH (09:06)
[2018-10-10] MEDS: DIVALPROEX SODIUM 250 MG ER TABLET PO SCH ×3 (09:06→17:52)
[2018-10-10 10:56] VITALS: BP 133/75
[2018-10-10 14:15] VITALS: BP 121/77
[2018-10-10 16:00] VITALS: BP 121/77
[2018-10-11] MEDS: LEVOTHYROXINE SODIUM 50 MCG TABLET PO SCH (06:39)
[2018-10-11] MEDS: SERTRALINE HCL 50 MG TABLET PO SCH (07:50)
[2018-10-11] MEDS: LORazepam 2 MG TABLET PO PRN (07:50)
[2018-10-11] MEDS: MULTIVITAMINS, THERAPEUTIC TABLET PO SCH (07:50)
[2018-10-11] MEDS: QUEtiapine FUMARATE 200 MG TABLET PO SCH ×2 (07:50→20:32)
[2018-10-11] MEDS: HALOPERIDOL 5 MG TABLET PO PRN (07:50)
[2018-10-11] MEDS: BENZTROPINE MESYLATE 2 MG TABLET PO SCH ×2 (07:50→20:32)
[2018-10-11] MEDS: OXYBUTYNIN CHLORIDE 5 MG TABLET PO SCH (07:51)
[2018-10-11] MEDS: DIVALPROEX SODIUM 250 MG ER TABLET PO SCH ×3 (07:51→16:44)
[2018-10-11 08:52] VITALS: BP 145/88
[2018-10-11 16:35] VITALS: BP 147/86
[2018-10-12] MEDS: LEVOTHYROXINE SODIUM 50 MCG TABLET PO SCH (06:59)
[2018-10-12 08:31] VITALS: BP 126/79
[2018-10-12] MEDS: BENZTROPINE MESYLATE 2 MG TABLET PO SCH ×2 (09:19→20:25)
[2018-10-12] MEDS: MULTIVITAMINS, THERAPEUTIC TABLET PO SCH (09:19)
[2018-10-12] MEDS: DIVALPROEX SODIUM 250 MG ER TABLET PO SCH ×3 (09:19→16:07)
[2018-10-12] MEDS: QUEtiapine FUMARATE 200 MG TABLET PO SCH ×2 (09:19→20:25)
[2018-10-12] MEDS: OXYBUTYNIN CHLORIDE 5 MG TABLET PO SCH (09:20)
[2018-10-12] MEDS: SERTRALINE HCL 50 MG TABLET PO SCH (09:21)
[2018-10-12 17:13] VITALS: BP 142/98
[2018-10-12] MEDS: HALOPERIDOL 5 MG TABLET PO PRN (20:52)
[2018-10-13] MEDS: LORazepam 2 MG TABLET PO PRN (00:19)
[2018-10-13] MEDS: ZOLPIDEM TARTRATE 10 MG TABLET PO PRN ×2 (00:19→23:53)
[2018-10-13 01:48] VITALS: BP 136/84
[2018-10-13] MEDS: LEVOTHYROXINE SODIUM 50 MCG TABLET PO SCH (07:00)
[2018-10-13 08:52] VITALS: BP 118/68
[2018-10-13 08:55] VITALS: BP 118/68
[2018-10-13] MEDS: BENZTROPINE MESYLATE 2 MG TABLET PO SCH ×2 (09:46→21:01)
[2018-10-13] MEDS: QUEtiapine FUMARATE 200 MG TABLET PO SCH ×2 (09:46→21:01)
[2018-10-13] MEDS: DIVALPROEX SODIUM 250 MG ER TABLET PO SCH ×3 (09:46→17:44)
[2018-10-13] MEDS: SERTRALINE HCL 50 MG TABLET PO SCH (09:46)
[2018-10-13] MEDS: OXYBUTYNIN CHLORIDE 5 MG TABLET PO SCH (09:46)
[2018-10-13] MEDS: MULTIVITAMINS, THERAPEUTIC TABLET PO SCH (09:47)
[2018-10-13 19:43] VITALS: BP 131/75
[2018-10-13] MEDS: HALOPERIDOL 5 MG TABLET PO PRN (21:01)
[2018-10-13] MEDS: ACETAMINOPHEN 325 MG TABLET PO PRN (23:53)
[2018-10-14] MEDS: LEVOTHYROXINE SODIUM 50 MCG TABLET PO SCH (07:06)
[2018-10-14] MEDS: SERTRALINE HCL 50 MG TABLET PO SCH (08:43)
[2018-10-14] MEDS: QUEtiapine FUMARATE 200 MG TABLET PO SCH ×2 (08:43→21:24)
[2018-10-14] MEDS: OXYBUTYNIN CHLORIDE 5 MG TABLET PO SCH (08:43)
[2018-10-14] MEDS: MULTIVITAMINS, THERAPEUTIC TABLET PO SCH (08:43)
[2018-10-14] MEDS: DIVALPROEX SODIUM 250 MG ER TABLET PO SCH ×3 (08:43→17:36)
[2018-10-14] MEDS: BENZTROPINE MESYLATE 2 MG TABLET PO SCH ×2 (08:43→21:24)
[2018-10-14 09:37] VITALS: BP 130/81
[2018-10-14 16:00] VITALS: BP 130/79
[2018-10-14] MEDS: HALOPERIDOL 5 MG TABLET PO PRN (21:30)
[2018-10-15] MEDS: LEVOTHYROXINE SODIUM 50 MCG TABLET PO SCH (06:29)
[2018-10-15] MEDS: MULTIVITAMINS, THERAPEUTIC TABLET PO SCH (09:05)
[2018-10-15] MEDS: BENZTROPINE MESYLATE 2 MG TABLET PO SCH ×2 (09:05→20:39)
[2018-10-15] MEDS: SERTRALINE HCL 50 MG TABLET PO SCH (09:05)
[2018-10-15] MEDS: DIVALPROEX SODIUM 250 MG ER TABLET PO SCH ×3 (09:06→16:32)
[2018-10-15] MEDS: OXYBUTYNIN CHLORIDE 5 MG TABLET PO SCH (09:07)
[2018-10-15] MEDS: QUEtiapine FUMARATE 200 MG TABLET PO SCH ×2 (09:08→20:39)
[2018-10-15 09:35] VITALS: BP 130/67
[2018-10-15] MEDS: HALOPERIDOL 5 MG TABLET PO PRN (09:47)
[2018-10-15] MEDS: LORazepam 2 MG TABLET PO PRN (12:01)
[2018-10-15 17:53] VITALS: BP 134/88
[2018-10-15] MEDS: ZOLPIDEM TARTRATE 10 MG TABLET PO PRN (21:38)
[2018-10-16] MEDS: LEVOTHYROXINE SODIUM 50 MCG TABLET PO SCH (06:56)
[2018-10-16] MEDS: SERTRALINE HCL 50 MG TABLET PO SCH (07:45)
[2018-10-16] MEDS: MULTIVITAMINS, THERAPEUTIC TABLET PO SCH (07:45)
[2018-10-16] MEDS: OXYBUTYNIN CHLORIDE 5 MG TABLET PO SCH (07:46)
[2018-10-16] MEDS: DIVALPROEX SODIUM 250 MG ER TABLET PO SCH ×3 (07:46→16:02)
[2018-10-16] MEDS: QUEtiapine FUMARATE 200 MG TABLET PO SCH ×2 (07:46→20:29)
[2018-10-16] MEDS: LORazepam 2 MG TABLET PO PRN (07:47)
[2018-10-16] MEDS: BENZTROPINE MESYLATE 2 MG TABLET PO SCH ×2 (07:47→20:29)
[2018-10-16 08:55] VITALS: BP 144/97
[2018-10-16] MEDS: HALOPERIDOL 5 MG TABLET PO PRN (16:02)
[2018-10-16 19:31] VITALS: BP 135/77
[2018-10-17] MEDS: LEVOTHYROXINE SODIUM 50 MCG TABLET PO SCH (06:32)
[2018-10-17] MEDS: DIVALPROEX SODIUM 250 MG ER TABLET PO SCH ×3 (07:35→16:28)
[2018-10-17] MEDS: OXYBUTYNIN CHLORIDE 5 MG TABLET PO SCH (07:35)
[2018-10-17] MEDS: QUEtiapine FUMARATE 200 MG TABLET PO SCH ×2 (07:36→19:59)
[2018-10-17] MEDS: MULTIVITAMINS, THERAPEUTIC TABLET PO SCH (07:36)
[2018-10-17] MEDS: SERTRALINE HCL 50 MG TABLET PO SCH (07:36)
[2018-10-17] MEDS: BENZTROPINE MESYLATE 2 MG TABLET PO SCH ×2 (07:36→19:59)
[2018-10-17] MEDS: LORazepam 2 MG TABLET PO PRN (07:37)
[2018-10-17] MEDS: HALOPERIDOL 5 MG TABLET PO PRN ×2 (07:37→16:28)
[2018-10-17 08:00] VITALS: BP 141/94
[2018-10-17] MEDS: ZOLPIDEM TARTRATE 10 MG TABLET PO PRN (20:00)
[2018-10-17 20:34] VITALS: BP 134/69
[2018-10-18] MEDS: LEVOTHYROXINE SODIUM 50 MCG TABLET PO SCH (06:53)
[2018-10-18] MEDS: BENZTROPINE MESYLATE 2 MG TABLET PO SCH ×2 (08:21→20:54)
[2018-10-18] MEDS: SERTRALINE HCL 50 MG TABLET PO SCH (08:22)
[2018-10-18] MEDS: DIVALPROEX SODIUM 250 MG ER TABLET PO SCH ×3 (08:22→17:12)
[2018-10-18] MEDS: OXYBUTYNIN CHLORIDE 5 MG TABLET PO SCH (08:22)
[2018-10-18] MEDS: QUEtiapine FUMARATE 200 MG TABLET PO SCH ×2 (08:22→20:55)
[2018-10-18] MEDS: MULTIVITAMINS, THERAPEUTIC TABLET PO SCH (08:23)
[2018-10-18 08:46] VITALS: BP 119/68
[2018-10-18] MEDS: IBUPROFEN 400 MG TABLET PO PRN (12:07)
[2018-10-18 16:16] VITALS: BP 134/89
[2018-10-18] MEDS: ZOLPIDEM TARTRATE 10 MG TABLET PO PRN (21:11)
[2018-10-19] MEDS: LEVOTHYROXINE SODIUM 50 MCG TABLET PO SCH (06:38)
[2018-10-19] MEDS: QUEtiapine FUMARATE 200 MG TABLET PO SCH ×2 (07:47→20:20)
[2018-10-19] MEDS: SERTRALINE HCL 50 MG TABLET PO SCH (07:47)
[2018-10-19] MEDS: BENZTROPINE MESYLATE 2 MG TABLET PO SCH ×2 (07:47→20:19)
[2018-10-19] MEDS: MULTIVITAMINS, THERAPEUTIC TABLET PO SCH (07:47)
[2018-10-19] MEDS: OXYBUTYNIN CHLORIDE 5 MG TABLET PO SCH (07:47)
[2018-10-19] MEDS: DIVALPROEX SODIUM 250 MG ER TABLET PO SCH ×3 (07:47→16:36)
[2018-10-19 08:28] VITALS: BP 129/78
[2018-10-19] MEDS: HALOPERIDOL 5 MG TABLET PO PRN (16:35)
[2018-10-19 17:02] VITALS: BP 124/77
[2018-10-20] MEDS: LEVOTHYROXINE SODIUM 50 MCG TABLET PO SCH (07:02)
[2018-10-20] MEDS: SERTRALINE HCL 50 MG TABLET PO SCH (08:07)
[2018-10-20] MEDS: QUEtiapine FUMARATE 200 MG TABLET PO SCH ×2 (08:07→20:10)
[2018-10-20] MEDS: DIVALPROEX SODIUM 250 MG ER TABLET PO SCH ×3 (08:08→15:51)
[2018-10-20] MEDS: HALOPERIDOL 5 MG TABLET PO PRN ×3 (08:08→20:10)
[2018-10-20] MEDS: LORazepam 2 MG TABLET PO PRN ×2 (08:08→13:11)
[2018-10-20] MEDS: OXYBUTYNIN CHLORIDE 5 MG TABLET PO SCH (08:08)
[2018-10-20] MEDS: BENZTROPINE MESYLATE 2 MG TABLET PO SCH ×2 (08:08→20:10)
[2018-10-20] MEDS: MULTIVITAMINS, THERAPEUTIC TABLET PO SCH (08:09)
[2018-10-20] MEDS: NICOTINE 14 MG/24 HOUR PATCH TD PRN (08:33)
[2018-10-20 09:06] VITALS: BP 140/79
[2018-10-20 16:00] VITALS: BP 139/92
[2018-10-21] MEDS: LEVOTHYROXINE SODIUM 50 MCG TABLET PO SCH (06:56)
[2018-10-21] MEDS: SERTRALINE HCL 50 MG TABLET PO SCH (07:59)
[2018-10-21] MEDS: MULTIVITAMINS, THERAPEUTIC TABLET PO SCH (07:59)
[2018-10-21] MEDS: BENZTROPINE MESYLATE 2 MG TABLET PO SCH ×2 (07:59→20:28)
[2018-10-21] MEDS: QUEtiapine FUMARATE 200 MG TABLET PO SCH ×2 (07:59→20:29)
[2018-10-21] MEDS: OXYBUTYNIN CHLORIDE 5 MG TABLET PO SCH (08:00)
[2018-10-21] MEDS: DIVALPROEX SODIUM 250 MG ER TABLET PO SCH ×3 (08:00→16:29)
[2018-10-21 08:50] VITALS: BP 139/88
[2018-10-21] MEDS: NICOTINE 14 MG/24 HOUR PATCH TD PRN (11:04)
[2018-10-21] MEDS: HALOPERIDOL 5 MG TABLET PO PRN ×2 (15:51→20:28)
[2018-10-21] MEDS: LORazepam 2 MG TABLET PO PRN (16:31)
[2018-10-21 16:49] VITALS: BP 135/90
[2018-10-21] MEDS: ZOLPIDEM TARTRATE 10 MG TABLET PO PRN (21:55)
[2018-10-22] MEDS: LEVOTHYROXINE SODIUM 50 MCG TABLET PO SCH (06:39)
[2018-10-22] MEDS: DIVALPROEX SODIUM 250 MG ER TABLET PO SCH ×3 (07:54→16:09)
[2018-10-22] MEDS: LORazepam 2 MG TABLET PO PRN (07:54)
[2018-10-22] MEDS: MULTIVITAMINS, THERAPEUTIC TABLET PO SCH (07:54)
[2018-10-22] MEDS: HALOPERIDOL 5 MG TABLET PO PRN ×3 (07:54→20:02)
[2018-10-22] MEDS: SERTRALINE HCL 50 MG TABLET PO SCH (07:54)
[2018-10-22] MEDS: BENZTROPINE MESYLATE 2 MG TABLET PO SCH ×2 (07:54→20:02)
[2018-10-22] MEDS: OXYBUTYNIN CHLORIDE 5 MG TABLET PO SCH (07:55)
[2018-10-22] MEDS: QUEtiapine FUMARATE 200 MG TABLET PO SCH ×2 (08:04→20:02)
[2018-10-22 08:14] VITALS: BP 130/80
[2018-10-22] MEDS: NICOTINE 14 MG/24 HOUR PATCH TD PRN (14:54)
[2018-10-22 16:00] VITALS: BP_SYST 132; BP_SYST 137; BP_DIAS 74; BP_DIAS 82
[2018-10-22] MEDS: ZOLPIDEM TARTRATE 10 MG TABLET PO PRN (20:38)
[2018-10-23] MEDS: LEVOTHYROXINE SODIUM 50 MCG TABLET PO SCH (06:34)
[2018-10-23] MEDS: SERTRALINE HCL 50 MG TABLET PO SCH (08:07)
[2018-10-23] MEDS: QUEtiapine FUMARATE 200 MG TABLET PO SCH ×2 (08:07→20:13)
[2018-10-23] MEDS: MULTIVITAMINS, THERAPEUTIC TABLET PO SCH (08:07)
[2018-10-23] MEDS: BENZTROPINE MESYLATE 2 MG TABLET PO SCH ×2 (08:07→20:13)
[2018-10-23] MEDS: OXYBUTYNIN CHLORIDE 5 MG TABLET PO SCH (08:08)
[2018-10-23] MEDS: DIVALPROEX SODIUM 250 MG ER TABLET PO SCH ×3 (08:08→17:08)
[2018-10-23 08:59] VITALS: BP 144/72
[2018-10-23] MEDS: HALOPERIDOL 5 MG TABLET PO PRN (17:08)
[2018-10-23] MEDS: ZOLPIDEM TARTRATE 10 MG TABLET PO PRN (20:13)
[2018-10-24] MEDS: LEVOTHYROXINE SODIUM 50 MCG TABLET PO SCH (07:03)
[2018-10-24] MEDS: SERTRALINE HCL 50 MG TABLET PO SCH (08:06)
[2018-10-24] MEDS: BENZTROPINE MESYLATE 2 MG TABLET PO SCH ×2 (08:06→20:44)
[2018-10-24] MEDS: OXYBUTYNIN CHLORIDE 5 MG TABLET PO SCH (08:06)
[2018-10-24] MEDS: HALOPERIDOL 5 MG TABLET PO PRN ×2 (08:06→20:44)
[2018-10-24] MEDS: MULTIVITAMINS, THERAPEUTIC TABLET PO SCH (08:06)
[2018-10-24] MEDS: DIVALPROEX SODIUM 250 MG ER TABLET PO SCH ×3 (08:07→16:30)
[2018-10-24] MEDS: QUEtiapine FUMARATE 200 MG TABLET PO SCH ×2 (08:08→20:44)
[2018-10-24 08:55] VITALS: BP 137/84
[2018-10-24 21:57] VITALS: BP 135/92
[2018-10-25] MEDS: LEVOTHYROXINE SODIUM 50 MCG TABLET PO SCH (06:53)
[2018-10-25 08:46] VITALS: BP 124/78
[2018-10-25] MEDS: BENZTROPINE MESYLATE 2 MG TABLET PO SCH ×2 (08:54→20:26)
[2018-10-25] MEDS: HALOPERIDOL 5 MG TABLET PO PRN (08:54)
[2018-10-25] MEDS: DIVALPROEX SODIUM 250 MG ER TABLET PO SCH ×3 (08:54→17:23)
[2018-10-25] MEDS: LORazepam 2 MG TABLET PO PRN (08:54)
[2018-10-25] MEDS: QUEtiapine FUMARATE 200 MG TABLET PO SCH ×2 (08:54→20:26)
[2018-10-25] MEDS: MULTIVITAMINS, THERAPEUTIC TABLET PO SCH (08:54)
[2018-10-25] MEDS: SERTRALINE HCL 50 MG TABLET PO SCH (08:55)
[2018-10-25] MEDS: OXYBUTYNIN CHLORIDE 5 MG TABLET PO SCH (08:55)
[2018-10-25 16:48] VITALS: BP 128/84
[2018-10-26] MEDS: LEVOTHYROXINE SODIUM 50 MCG TABLET PO SCH (06:16)
[2018-10-26] MEDS: HALOPERIDOL 5 MG TABLET PO PRN ×2 (09:29→14:49)
[2018-10-26] MEDS: DIVALPROEX SODIUM 250 MG ER TABLET PO SCH ×3 (09:30→16:26)
[2018-10-26] MEDS: BENZTROPINE MESYLATE 2 MG TABLET PO SCH ×2 (09:30→20:30)
[2018-10-26] MEDS: OXYBUTYNIN CHLORIDE 5 MG TABLET PO SCH (09:30)
[2018-10-26] MEDS: SERTRALINE HCL 50 MG TABLET PO SCH (09:30)
[2018-10-26] MEDS: MULTIVITAMINS, THERAPEUTIC TABLET PO SCH (09:30)
[2018-10-26] MEDS: QUEtiapine FUMARATE 200 MG TABLET PO SCH ×2 (09:30→20:30)
[2018-10-26] MEDS: LORazepam 2 MG TABLET PO PRN (09:30)
[2018-10-26] MEDS: IBUPROFEN 400 MG TABLET PO PRN (14:47)
[2018-10-27] MEDS: LEVOTHYROXINE SODIUM 50 MCG TABLET PO SCH (07:19)
[2018-10-27 08:00] VITALS: BP 137/79
[2018-10-27] MEDS: QUEtiapine FUMARATE 200 MG TABLET PO SCH ×2 (08:59→20:46)
[2018-10-27] MEDS: BENZTROPINE MESYLATE 2 MG TABLET PO SCH ×2 (08:59→20:45)
[2018-10-27] MEDS: DIVALPROEX SODIUM 250 MG ER TABLET PO SCH ×3 (08:59→16:30)
[2018-10-27] MEDS: SERTRALINE HCL 50 MG TABLET PO SCH (08:59)
[2018-10-27] MEDS: MULTIVITAMINS, THERAPEUTIC TABLET PO SCH (08:59)
[2018-10-27] MEDS: OXYBUTYNIN CHLORIDE 5 MG TABLET PO SCH (08:59)
[2018-10-27] MEDS: HALOPERIDOL 5 MG TABLET PO PRN (09:01)
[2018-10-27 16:38] VITALS: BP 107/60
[2018-10-27] MEDS: LORazepam 2 MG TABLET PO PRN (20:57)
[2018-10-27] MEDS: ZOLPIDEM TARTRATE 10 MG TABLET PO PRN (20:57)
[2018-10-28] MEDS: LEVOTHYROXINE SODIUM 50 MCG TABLET PO SCH (06:56)
[2018-10-28 08:00] VITALS: BP 133/68
[2018-10-28] MEDS: BENZTROPINE MESYLATE 2 MG TABLET PO SCH ×2 (09:22→20:15)
[2018-10-28] MEDS: DIVALPROEX SODIUM 250 MG ER TABLET PO SCH ×3 (09:23→16:31)
[2018-10-28] MEDS: MULTIVITAMINS, THERAPEUTIC TABLET PO SCH (09:23)
[2018-10-28] MEDS: SERTRALINE HCL 50 MG TABLET PO SCH (09:23)
[2018-10-28] MEDS: QUEtiapine FUMARATE 200 MG TABLET PO SCH ×2 (09:25→20:15)
[2018-10-28] MEDS: OXYBUTYNIN CHLORIDE 5 MG TABLET PO SCH (09:25)
[2018-10-28] MEDS: HALOPERIDOL 5 MG TABLET PO PRN ×2 (09:28→16:40)
[2018-10-28 16:30] VITALS: BP 132/82
[2018-10-28] MEDS: ZOLPIDEM TARTRATE 10 MG TABLET PO PRN (23:14)
[2018-10-29] MEDS: LEVOTHYROXINE SODIUM 50 MCG TABLET PO SCH (07:14)
[2018-10-29 08:00] VITALS: BP 128/65
[2018-10-29] MEDS: QUEtiapine FUMARATE 200 MG TABLET PO SCH ×2 (08:00→20:36)
[2018-10-29] MEDS: OXYBUTYNIN CHLORIDE 5 MG TABLET PO SCH (08:00)
[2018-10-29] MEDS: DIVALPROEX SODIUM 250 MG ER TABLET PO SCH ×3 (08:00→16:53)
[2018-10-29] MEDS: BENZTROPINE MESYLATE 2 MG TABLET PO SCH ×2 (08:00→20:35)
[2018-10-29] MEDS: MULTIVITAMINS, THERAPEUTIC TABLET PO SCH (08:00)
[2018-10-29] MEDS: SERTRALINE HCL 50 MG TABLET PO SCH (08:00)
[2018-10-29] MEDS: HALOPERIDOL 5 MG TABLET PO PRN (08:01)
[2018-10-29 19:39] VITALS: BP 130/69
[2018-10-30] MEDS: ZOLPIDEM TARTRATE 10 MG TABLET PO PRN ×2 (01:09→20:49)
[2018-10-30] MEDS: LEVOTHYROXINE SODIUM 50 MCG TABLET PO SCH (06:47)
[2018-10-30 08:00] VITALS: BP 130/81
[2018-10-30] MEDS: MULTIVITAMINS, THERAPEUTIC TABLET PO SCH (08:05)
[2018-10-30] MEDS: SERTRALINE HCL 50 MG TABLET PO SCH (08:05)
[2018-10-30] MEDS: QUEtiapine FUMARATE 200 MG TABLET PO SCH ×2 (08:05→20:48)
[2018-10-30] MEDS: BENZTROPINE MESYLATE 2 MG TABLET PO SCH ×2 (08:05→20:48)
[2018-10-30] MEDS: DIVALPROEX SODIUM 250 MG ER TABLET PO SCH ×3 (08:06→16:07)
[2018-10-30] MEDS: OXYBUTYNIN CHLORIDE 5 MG TABLET PO SCH (08:06)
[2018-10-30] MEDS: HALOPERIDOL 5 MG TABLET PO PRN ×2 (08:09→13:40)
[2018-10-30 18:27] VITALS: BP 128/66
[2018-10-31] MEDS: LEVOTHYROXINE SODIUM 50 MCG TABLET PO SCH (06:41)
[2018-10-31 08:00] VITALS: BP 112/81
[2018-10-31] MEDS: OXYBUTYNIN CHLORIDE 5 MG TABLET PO SCH (08:43)
[2018-10-31] MEDS: QUEtiapine FUMARATE 200 MG TABLET PO SCH ×2 (08:43→20:04)
[2018-10-31] MEDS: DIVALPROEX SODIUM 250 MG ER TABLET PO SCH ×3 (08:43→16:04)
[2018-10-31] MEDS: SERTRALINE HCL 50 MG TABLET PO SCH (08:43)
[2018-10-31] MEDS: MULTIVITAMINS, THERAPEUTIC TABLET PO SCH (08:43)
[2018-10-31] MEDS: BENZTROPINE MESYLATE 2 MG TABLET PO SCH ×2 (08:44→20:04)
[2018-10-31] MEDS: HALOPERIDOL 5 MG TABLET PO PRN ×2 (08:45→22:05)
[2018-10-31 17:08] VITALS: BP 127/97
[2018-10-31] MEDS: ZOLPIDEM TARTRATE 10 MG TABLET PO PRN (22:05)
[2018-11-01] MEDS: LEVOTHYROXINE SODIUM 50 MCG TABLET PO SCH (06:10)
[2018-11-01] MEDS: DIVALPROEX SODIUM 250 MG ER TABLET PO SCH ×3 (08:09→16:33)
[2018-11-01] MEDS: BENZTROPINE MESYLATE 2 MG TABLET PO SCH ×2 (08:09→20:08)
[2018-11-01] MEDS: OXYBUTYNIN CHLORIDE 5 MG TABLET PO SCH (08:09)
[2018-11-01] MEDS: SERTRALINE HCL 50 MG TABLET PO SCH (08:09)
[2018-11-01] MEDS: MULTIVITAMINS, THERAPEUTIC TABLET PO SCH (08:09)
[2018-11-01] MEDS: QUEtiapine FUMARATE 200 MG TABLET PO SCH ×2 (08:10→20:08)
[2018-11-01 09:06] VITALS: BP 134/83
[2018-11-01 09:09] VITALS: BP 134/83
[2018-11-01] MEDS: HYPROMELLOSE 0.5% 15 ML OPHTHALMIC SOLUTION OU PRN ×3 (10:19→22:25)
[2018-11-01 19:30] VITALS: BP 123/93
[2018-11-01] MEDS: LORazepam 2 MG TABLET PO PRN (20:51)
[2018-11-02] MEDS: LEVOTHYROXINE SODIUM 50 MCG TABLET PO SCH (06:36)
[2018-11-02] MEDS: QUEtiapine FUMARATE 200 MG TABLET PO SCH ×2 (08:54→20:25)
[2018-11-02] MEDS: BENZTROPINE MESYLATE 2 MG TABLET PO SCH ×2 (08:54→20:25)
[2018-11-02] MEDS: OXYBUTYNIN CHLORIDE 5 MG TABLET PO SCH (08:55)
[2018-11-02] MEDS: MULTIVITAMINS, THERAPEUTIC TABLET PO SCH (08:55)
[2018-11-02] MEDS: DIVALPROEX SODIUM 250 MG ER TABLET PO SCH ×6 (08:55→16:59)
[2018-11-02] MEDS: SERTRALINE HCL 50 MG TABLET PO SCH (08:55)
[2018-11-02 09:00] VITALS: BP 123/75
[2018-11-02] MEDS: LORazepam 2 MG TABLET PO PRN ×2 (10:32→20:25)
[2018-11-02] MEDS: HALOPERIDOL 5 MG TABLET PO PRN (10:32)
[2018-11-02] MEDS: IBUPROFEN 400 MG TABLET PO PRN (11:22)
[2018-11-02 16:57] VITALS: BP 136/89
[2018-11-02] MEDS: ZOLPIDEM TARTRATE 10 MG TABLET PO PRN (20:25)
[2018-11-03] MEDS: LEVOTHYROXINE SODIUM 50 MCG TABLET PO SCH (07:05)
[2018-11-03 08:02] VITALS: BP 132/85
[2018-11-03] MEDS: BENZTROPINE MESYLATE 2 MG TABLET PO SCH ×2 (10:47→20:40)
[2018-11-03] MEDS: OXYBUTYNIN CHLORIDE 5 MG TABLET PO SCH (10:47)
[2018-11-03] MEDS: QUEtiapine FUMARATE 200 MG TABLET PO SCH ×2 (10:47→20:40)
[2018-11-03] MEDS: SERTRALINE HCL 50 MG TABLET PO SCH (10:47)
[2018-11-03] MEDS: MULTIVITAMINS, THERAPEUTIC TABLET PO SCH (10:47)
[2018-11-03] MEDS: HYPROMELLOSE 0.5% 15 ML OPHTHALMIC SOLUTION OU PRN (10:48)
[2018-11-03] MEDS: DIVALPROEX SODIUM 250 MG ER TABLET PO SCH ×3 (10:48→16:04)
[2018-11-03] MEDS: HALOPERIDOL 5 MG TABLET PO PRN (16:04)
[2018-11-03] MEDS: LORazepam 2 MG TABLET PO PRN (16:04)
[2018-11-03] MEDS: ZOLPIDEM TARTRATE 10 MG TABLET PO PRN (20:40)
[2018-11-04 06:10] VITALS: BP 146/91
[2018-11-04] MEDS: LEVOTHYROXINE SODIUM 50 MCG TABLET PO SCH (06:53)
[2018-11-04] MEDS: OXYBUTYNIN CHLORIDE 5 MG TABLET PO SCH (09:52)
[2018-11-04] MEDS: SERTRALINE HCL 50 MG TABLET PO SCH (09:52)
[2018-11-04] MEDS: QUEtiapine FUMARATE 200 MG TABLET PO SCH ×2 (09:52→20:47)
[2018-11-04] MEDS: DIVALPROEX SODIUM 250 MG ER TABLET PO SCH ×3 (09:52→17:27)
[2018-11-04] MEDS: BENZTROPINE MESYLATE 2 MG TABLET PO SCH ×2 (09:52→20:47)
[2018-11-04] MEDS: MULTIVITAMINS, THERAPEUTIC TABLET PO SCH (09:53)
[2018-11-04 12:38] VITALS: BP 132/96
[2018-11-04] MEDS: HALOPERIDOL 5 MG TABLET PO PRN (17:27)
[2018-11-04] MEDS: MAG HYDROX/AL HYDROX/SIMETH ES 30 ML SUSPENSION UDCUP PO PRN (17:30)
[2018-11-04 18:55] VITALS: BP 134/87
[2018-11-04] MEDS: ZOLPIDEM TARTRATE 10 MG TABLET PO PRN (20:47)
[2018-11-05] MEDS: LEVOTHYROXINE SODIUM 50 MCG TABLET PO SCH (06:43)
[2018-11-05 08:49] VITALS: BP 147/85
[2018-11-05] MEDS: MULTIVITAMINS, THERAPEUTIC TABLET PO SCH (08:58)
[2018-11-05] MEDS: SERTRALINE HCL 50 MG TABLET PO SCH (08:59)
[2018-11-05] MEDS: DIVALPROEX SODIUM 250 MG ER TABLET PO SCH ×3 (08:59→16:30)
[2018-11-05] MEDS: BENZTROPINE MESYLATE 2 MG TABLET PO SCH ×2 (08:59→20:20)
[2018-11-05] MEDS: OXYBUTYNIN CHLORIDE 5 MG TABLET PO SCH (08:59)
[2018-11-05] MEDS: QUEtiapine FUMARATE 200 MG TABLET PO SCH ×2 (09:00→20:21)
[2018-11-05] MEDS: HYPROMELLOSE 0.5% 15 ML OPHTHALMIC SOLUTION OU PRN (09:02)
[2018-11-05 18:05] VITALS: BP 141/86
[2018-11-05] MEDS: HALOPERIDOL 5 MG TABLET PO PRN (20:20)
[2018-11-05] MEDS: ZOLPIDEM TARTRATE 10 MG TABLET PO PRN (20:20)
[2018-11-06] MEDS: LEVOTHYROXINE SODIUM 50 MCG TABLET PO SCH (06:55)
[2018-11-06] MEDS: QUEtiapine FUMARATE 200 MG TABLET PO SCH ×2 (09:04→20:14)
[2018-11-06] MEDS: DIVALPROEX SODIUM 250 MG ER TABLET PO SCH ×4 (09:04→18:00)
[2018-11-06] MEDS: MULTIVITAMINS, THERAPEUTIC TABLET PO SCH (09:04)
[2018-11-06] MEDS: BENZTROPINE MESYLATE 2 MG TABLET PO SCH ×2 (09:04→20:14)
[2018-11-06] MEDS: OXYBUTYNIN CHLORIDE 5 MG TABLET PO SCH (09:04)
[2018-11-06] MEDS: SERTRALINE HCL 50 MG TABLET PO SCH (09:06)
[2018-11-06] MEDS: HYPROMELLOSE 0.5% 15 ML OPHTHALMIC SOLUTION OU PRN (09:06)
[2018-11-06] MEDS ORDERED: ZIPRASIDONE MESYLATE 20 MG/VIAL IM ONE (13:45)
[2018-11-06] MEDS ORDERED: LORazepam 2 MG/ML VIAL IM ONE (13:45)
[2018-11-06 16:30] VITALS: BP 138/84
[2018-11-06] MEDS: ZOLPIDEM TARTRATE 10 MG TABLET PO PRN (20:14)
[2018-11-07] MEDS: LEVOTHYROXINE SODIUM 50 MCG TABLET PO SCH (06:32)
[2018-11-07] MEDS: QUEtiapine FUMARATE 200 MG TABLET PO SCH ×2 (07:27→20:48)
[2018-11-07 08:02] VITALS: BP 140/76
[2018-11-07] MEDS: OXYBUTYNIN CHLORIDE 5 MG TABLET PO SCH (09:30)
[2018-11-07] MEDS: MULTIVITAMINS, THERAPEUTIC TABLET PO SCH (09:30)
[2018-11-07] MEDS: SERTRALINE HCL 50 MG TABLET PO SCH (09:30)
[2018-11-07] MEDS: DIVALPROEX SODIUM 250 MG ER TABLET PO SCH ×3 (09:30→16:15)
[2018-11-07] MEDS: BENZTROPINE MESYLATE 2 MG TABLET PO SCH ×2 (09:30→20:49)
[2018-11-07] MEDS: HALOPERIDOL 5 MG TABLET PO PRN ×2 (09:31→20:48)
[2018-11-07 19:09] VITALS: BP 147/98
[2018-11-08] MEDS: HALOPERIDOL 5 MG TABLET PO PRN ×3 (01:18→20:05)
[2018-11-08] MEDS: HYPROMELLOSE 0.5% 15 ML OPHTHALMIC SOLUTION OU PRN (02:58)
[2018-11-08] MEDS: LEVOTHYROXINE SODIUM 50 MCG TABLET PO SCH (06:31)
[2018-11-08] MEDS: QUEtiapine FUMARATE 200 MG TABLET PO SCH ×2 (07:17→20:05)
[2018-11-08 08:01] VITALS: BP 135/98
[2018-11-08] MEDS: SERTRALINE HCL 50 MG TABLET PO SCH (09:39)
[2018-11-08] MEDS: MULTIVITAMINS, THERAPEUTIC TABLET PO SCH (09:39)
[2018-11-08] MEDS: OXYBUTYNIN CHLORIDE 5 MG TABLET PO SCH (09:39)
[2018-11-08] MEDS: BENZTROPINE MESYLATE 2 MG TABLET PO SCH ×2 (09:39→20:05)
[2018-11-08] MEDS: DIVALPROEX SODIUM 250 MG ER TABLET PO SCH ×3 (09:39→16:26)
[2018-11-08 17:07] VITALS: BP 133/90
[2018-11-08] MEDS: ZOLPIDEM TARTRATE 10 MG TABLET PO PRN (20:06)
[2018-11-09] MEDS: LEVOTHYROXINE SODIUM 50 MCG TABLET PO SCH (07:01)
[2018-11-09 09:54] VITALS: BP 139/86
[2018-11-09] MEDS: DOCUSATE SODIUM 100 MG CAPSULE PO PRN (11:43)
[2018-11-09] MEDS: QUEtiapine FUMARATE 200 MG TABLET PO SCH ×2 (11:43→20:20)
[2018-11-09] MEDS: OXYBUTYNIN CHLORIDE 5 MG TABLET PO SCH (11:43)
[2018-11-09] MEDS: DIVALPROEX SODIUM 250 MG ER TABLET PO SCH ×3 (11:43→16:20)
[2018-11-09] MEDS: SERTRALINE HCL 50 MG TABLET PO SCH (11:43)
[2018-11-09] MEDS: BENZTROPINE MESYLATE 2 MG TABLET PO SCH ×2 (11:43→20:20)
[2018-11-09] MEDS: HYPROMELLOSE 0.5% 15 ML OPHTHALMIC SOLUTION OU PRN (11:44)
[2018-11-09] MEDS: MULTIVITAMINS, THERAPEUTIC TABLET PO SCH (11:44)
[2018-11-09 16:00] VITALS: BP 140/83
[2018-11-09] MEDS: LORazepam 2 MG TABLET PO PRN ×2 (16:20→20:21)
[2018-11-09] MEDS: HALOPERIDOL 5 MG TABLET PO PRN (16:20)
[2018-11-09] MEDS: ZOLPIDEM TARTRATE 10 MG TABLET PO PRN (20:20)
[2018-11-10] MEDS: LEVOTHYROXINE SODIUM 50 MCG TABLET PO SCH (06:39)
[2018-11-10 08:07] VITALS: BP 137/82
[2018-11-10] MEDS: DIVALPROEX SODIUM 250 MG ER TABLET PO SCH ×3 (08:33→16:58)
[2018-11-10] MEDS: BENZTROPINE MESYLATE 2 MG TABLET PO SCH ×2 (08:33→20:36)
[2018-11-10] MEDS: HALOPERIDOL 5 MG TABLET PO PRN (08:33)
[2018-11-10] MEDS: LORazepam 2 MG TABLET PO PRN ×2 (08:33→16:59)
[2018-11-10] MEDS: OXYBUTYNIN CHLORIDE 5 MG TABLET PO SCH (08:33)
[2018-11-10] MEDS: SERTRALINE HCL 50 MG TABLET PO SCH (08:33)
[2018-11-10] MEDS: MULTIVITAMINS, THERAPEUTIC TABLET PO SCH (08:33)
[2018-11-10] MEDS: QUEtiapine FUMARATE 200 MG TABLET PO SCH ×2 (08:33→20:36)
[2018-11-10 16:00] VITALS: BP 123/87
[2018-11-10] MEDS: ZOLPIDEM TARTRATE 10 MG TABLET PO PRN (20:36)
[2018-11-11] MEDS: LEVOTHYROXINE SODIUM 50 MCG TABLET PO SCH (06:40)
[2018-11-11 08:11] VITALS: BP 130/80
[2018-11-11] MEDS: HALOPERIDOL 5 MG TABLET PO PRN (08:34)
[2018-11-11] MEDS: BENZTROPINE MESYLATE 2 MG TABLET PO SCH ×2 (08:35→20:33)
[2018-11-11] MEDS: DIVALPROEX SODIUM 250 MG ER TABLET PO SCH ×3 (08:35→16:54)
[2018-11-11] MEDS: LORazepam 2 MG TABLET PO PRN ×2 (08:35→16:54)
[2018-11-11] MEDS: MULTIVITAMINS, THERAPEUTIC TABLET PO SCH (08:35)
[2018-11-11] MEDS: SERTRALINE HCL 50 MG TABLET PO SCH (08:35)
[2018-11-11] MEDS: QUEtiapine FUMARATE 200 MG TABLET PO SCH ×2 (08:35→20:33)
[2018-11-11] MEDS: OXYBUTYNIN CHLORIDE 5 MG TABLET PO SCH (08:35)
[2018-11-11 16:00] VITALS: BP 116/74
[2018-11-11] MEDS: ZOLPIDEM TARTRATE 10 MG TABLET PO PRN (20:33)
[2018-11-12] MEDS: LEVOTHYROXINE SODIUM 50 MCG TABLET PO SCH (06:10)
[2018-11-12 06:17] VITALS: BP 122/82
[2018-11-12 08:04] VITALS: BP 123/77
[2018-11-12] MEDS: OXYBUTYNIN CHLORIDE 5 MG TABLET PO SCH (08:41)
[2018-11-12] MEDS: BENZTROPINE MESYLATE 2 MG TABLET PO SCH ×2 (08:41→20:27)
[2018-11-12] MEDS: QUEtiapine FUMARATE 200 MG TABLET PO SCH ×2 (08:41→20:27)
[2018-11-12] MEDS: MULTIVITAMINS, THERAPEUTIC TABLET PO SCH (08:41)
[2018-11-12] MEDS: DIVALPROEX SODIUM 250 MG ER TABLET PO SCH ×3 (08:41→17:15)
[2018-11-12] MEDS: SERTRALINE HCL 50 MG TABLET PO SCH (08:41)
[2018-11-12 16:00] VITALS: BP 138/88
[2018-11-12] MEDS: MAG HYDROX/AL HYDROX/SIMETH ES 30 ML SUSPENSION UDCUP PO PRN (16:29)
[2018-11-12] MEDS: LORazepam 2 MG TABLET PO PRN (20:27)
[2018-11-12] MEDS: ZOLPIDEM TARTRATE 10 MG TABLET PO PRN (20:27)
[2018-11-13 03:54] VITALS: BP 127/88
[2018-11-13] MEDS: LEVOTHYROXINE SODIUM 50 MCG TABLET PO SCH (06:59)
[2018-11-13 08:06] VITALS: BP 122/81
[2018-11-13] MEDS: SERTRALINE HCL 50 MG TABLET PO SCH (08:16)
[2018-11-13] MEDS: MULTIVITAMINS, THERAPEUTIC TABLET PO SCH (08:16)
[2018-11-13] MEDS: DIVALPROEX SODIUM 250 MG ER TABLET PO SCH ×3 (08:16→16:24)
[2018-11-13] MEDS: BENZTROPINE MESYLATE 2 MG TABLET PO SCH ×2 (08:16→20:43)
[2018-11-13] MEDS: QUEtiapine FUMARATE 200 MG TABLET PO SCH ×2 (08:17→20:43)
[2018-11-13] MEDS: OXYBUTYNIN CHLORIDE 5 MG TABLET PO SCH (08:17)
[2018-11-13 16:00] VITALS: BP 116/64
[2018-11-13] MEDS: HALOPERIDOL 5 MG TABLET PO PRN (16:24)
[2018-11-13] MEDS: LORazepam 2 MG TABLET PO PRN (16:24)
[2018-11-13] MEDS: ZOLPIDEM TARTRATE 10 MG TABLET PO PRN (20:43)
[2018-11-13] MEDS: HYPROMELLOSE 0.5% 15 ML OPHTHALMIC SOLUTION OU PRN (23:44)
[2018-11-14 00:16] VITALS: BP 130/86
[2018-11-14] MEDS: LEVOTHYROXINE SODIUM 50 MCG TABLET PO SCH (06:23)
[2018-11-14] MEDS: QUEtiapine FUMARATE 200 MG TABLET PO SCH ×2 (08:23→20:33)
[2018-11-14] MEDS: SERTRALINE HCL 50 MG TABLET PO SCH (08:24)
[2018-11-14] MEDS: BENZTROPINE MESYLATE 2 MG TABLET PO SCH ×2 (08:24→20:33)
[2018-11-14] MEDS: LORazepam 2 MG TABLET PO PRN ×2 (08:24→16:50)
[2018-11-14] MEDS: DIVALPROEX SODIUM 250 MG ER TABLET PO SCH ×3 (08:24→16:50)
[2018-11-14] MEDS: OXYBUTYNIN CHLORIDE 5 MG TABLET PO SCH (08:24)
[2018-11-14] MEDS: HALOPERIDOL 5 MG TABLET PO PRN ×2 (08:24→16:50)
[2018-11-14] MEDS: MULTIVITAMINS, THERAPEUTIC TABLET PO SCH (08:24)
[2018-11-14 08:47] VITALS: BP 130/78
[2018-11-14 16:09] VITALS: BP 117/89
[2018-11-14] MEDS: ZOLPIDEM TARTRATE 10 MG TABLET PO PRN (20:33)
[2018-11-15 00:25] VITALS: BP 133/78
[2018-11-15] MEDS: LEVOTHYROXINE SODIUM 50 MCG TABLET PO SCH (06:11)
[2018-11-15] MEDS: MULTIVITAMINS, THERAPEUTIC TABLET PO SCH (08:39)
[2018-11-15] MEDS: HALOPERIDOL 5 MG TABLET PO PRN (08:39)
[2018-11-15] MEDS: LORazepam 2 MG TABLET PO PRN ×2 (08:39→21:17)
[2018-11-15] MEDS: BENZTROPINE MESYLATE 2 MG TABLET PO SCH ×3 (08:39→21:17)
[2018-11-15] MEDS: OXYBUTYNIN CHLORIDE 5 MG TABLET PO SCH (08:39)
[2018-11-15] MEDS: SERTRALINE HCL 50 MG TABLET PO SCH (08:39)
[2018-11-15 09:20] VITALS: BP 131/85
[2018-11-15 17:20] VITALS: BP 123/79
[2018-11-15] MEDS: QUEtiapine FUMARATE 200 MG TABLET PO SCH ×2 (20:42→21:17)
[2018-11-15] MEDS: DIVALPROEX SODIUM 500 MG ER TABLET PO SCH ×2 (20:42→21:16)
[2018-11-15] MEDS: ZOLPIDEM TARTRATE 10 MG TABLET PO PRN (23:09)
[2018-11-16 05:58] VITALS: BP 128/82
[2018-11-16] MEDS: LEVOTHYROXINE SODIUM 50 MCG TABLET PO SCH (06:09)
[2018-11-16] MEDS ORDERED: HALOPERIDOL LACTATE 5 MG/ML VIAL IM PRN (06:45)
[2018-11-16 08:07] VITALS: BP 136/90
[2018-11-16] MEDS: HALOPERIDOL 5 MG TABLET PO PRN (08:39)
[2018-11-16] MEDS: SERTRALINE HCL 50 MG TABLET PO SCH (08:39)
[2018-11-16] MEDS: LORazepam 2 MG TABLET PO PRN (08:39)
[2018-11-16] MEDS: OXYBUTYNIN CHLORIDE 5 MG TABLET PO SCH (08:39)
[2018-11-16] MEDS: BENZTROPINE MESYLATE 2 MG TABLET PO SCH ×2 (08:40→20:53)
[2018-11-16] MEDS: MULTIVITAMINS, THERAPEUTIC TABLET PO SCH (08:40)
[2018-11-16 16:00] VITALS: BP 131/78
[2018-11-16] MEDS: DIVALPROEX SODIUM 500 MG ER TABLET PO SCH (20:53)
[2018-11-16] MEDS: ZOLPIDEM TARTRATE 10 MG TABLET PO PRN (20:54)
[2018-11-16] MEDS: QUEtiapine FUMARATE 200 MG TABLET PO SCH (20:54)
[2018-11-17] MEDS: LEVOTHYROXINE SODIUM 50 MCG TABLET PO SCH (06:38)
[2018-11-17 06:49] VITALS: BP 138/72
[2018-11-17] MEDS: BENZTROPINE MESYLATE 2 MG TABLET PO SCH ×2 (08:22→20:36)
[2018-11-17] MEDS: HALOPERIDOL 5 MG TABLET PO PRN ×2 (08:22→13:32)
[2018-11-17] MEDS: OXYBUTYNIN CHLORIDE 5 MG TABLET PO SCH (08:22)
[2018-11-17] MEDS: SERTRALINE HCL 50 MG TABLET PO SCH (08:22)
[2018-11-17] MEDS: MULTIVITAMINS, THERAPEUTIC TABLET PO SCH (08:22)
[2018-11-17] MEDS: LORazepam 2 MG TABLET PO PRN ×2 (08:22→13:32)
[2018-11-17 08:46] VITALS: BP 137/92
[2018-11-17 16:00] VITALS: BP 125/80
[2018-11-17] MEDS: DIVALPROEX SODIUM 500 MG ER TABLET PO SCH (20:35)
[2018-11-17] MEDS: ZOLPIDEM TARTRATE 10 MG TABLET PO PRN (20:35)
[2018-11-17] MEDS: QUEtiapine FUMARATE 200 MG TABLET PO SCH (20:36)
[2018-11-17] MEDS: HYPROMELLOSE 0.5% 15 ML OPHTHALMIC SOLUTION OU PRN (23:47)
[2018-11-18 00:30] VITALS: BP 126/82
[2018-11-18] MEDS: LEVOTHYROXINE SODIUM 50 MCG TABLET PO SCH (06:27)
[2018-11-18 08:07] VITALS: BP 122/78
[2018-11-18] MEDS: OXYBUTYNIN CHLORIDE 5 MG TABLET PO SCH (08:14)
[2018-11-18] MEDS: SERTRALINE HCL 50 MG TABLET PO SCH (08:14)
[2018-11-18] MEDS: BENZTROPINE MESYLATE 2 MG TABLET PO SCH ×2 (08:14→20:08)
[2018-11-18] MEDS: HALOPERIDOL 5 MG TABLET PO PRN (08:14)
[2018-11-18] MEDS: LORazepam 2 MG TABLET PO PRN (08:14)
[2018-11-18] MEDS: MULTIVITAMINS, THERAPEUTIC TABLET PO SCH (08:14)
[2018-11-18 17:00] VITALS: BP 132/85
[2018-11-18] MEDS: DIVALPROEX SODIUM 500 MG ER TABLET PO SCH (20:08)
[2018-11-18] MEDS: ZOLPIDEM TARTRATE 10 MG TABLET PO PRN (20:08)
[2018-11-18] MEDS: QUEtiapine FUMARATE 200 MG TABLET PO SCH (20:08)
[2018-11-19 03:55] VITALS: BP 131/81
[2018-11-19] MEDS: LEVOTHYROXINE SODIUM 50 MCG TABLET PO SCH (06:40)
[2018-11-19 08:16] VITALS: BP 132/82
[2018-11-19] MEDS: OXYBUTYNIN CHLORIDE 5 MG TABLET PO SCH (08:17)
[2018-11-19] MEDS: LORazepam 2 MG TABLET PO PRN (08:17)
[2018-11-19] MEDS: BENZTROPINE MESYLATE 2 MG TABLET PO SCH ×2 (08:17→20:39)
[2018-11-19] MEDS: MULTIVITAMINS, THERAPEUTIC TABLET PO SCH (08:17)
[2018-11-19] MEDS: HALOPERIDOL 5 MG TABLET PO PRN (08:17)
[2018-11-19] MEDS: SERTRALINE HCL 50 MG TABLET PO SCH (08:17)
[2018-11-19 16:00] VITALS: BP 133/73
[2018-11-19] MEDS ORDERED: LORazepam 2 MG/ML VIAL ONE (18:57)
[2018-11-19] MEDS ORDERED: DiphenhydrAMINE HCL 50 MG/ML VIAL ONE (18:57)
[2018-11-19] MEDS ORDERED: HALOPERIDOL LACTATE 5 MG/ML VIAL IM ONE (19:00)
[2018-11-19] MEDS ORDERED: DiphenhydrAMINE HCL 50 MG/ML VIAL IM ONE (19:00)
[2018-11-19] MEDS ORDERED: LORazepam 2 MG/ML VIAL IM ONE (19:00)
[2018-11-19] MEDS: DIVALPROEX SODIUM 500 MG ER TABLET PO SCH (20:39)
[2018-11-19] MEDS: QUEtiapine FUMARATE 200 MG TABLET PO SCH (20:39)
[2018-11-20] MEDS: LEVOTHYROXINE SODIUM 50 MCG TABLET PO SCH (06:15)
[2018-11-20 06:17] VITALS: BP 113/81
[2018-11-20] MEDS: MULTIVITAMINS, THERAPEUTIC TABLET PO SCH (08:33)
[2018-11-20] MEDS: OXYBUTYNIN CHLORIDE 5 MG TABLET PO SCH (08:33)
[2018-11-20] MEDS: SERTRALINE HCL 50 MG TABLET PO SCH (08:36)
[2018-11-20] MEDS: BENZTROPINE MESYLATE 2 MG TABLET PO SCH ×2 (08:36→20:31)
[2018-11-20] MEDS: LORazepam 2 MG TABLET PO PRN (08:37)
[2018-11-20 16:00] VITALS: BP 135/83
[2018-11-20] MEDS: MAG HYDROX/AL HYDROX/SIMETH ES 30 ML SUSPENSION UDCUP PO PRN (18:37)
[2018-11-20] MEDS: DIVALPROEX SODIUM 500 MG ER TABLET PO SCH (20:31)
[2018-11-20] MEDS: QUEtiapine FUMARATE 200 MG TABLET PO SCH (20:31)
[2018-11-20] MEDS: ZOLPIDEM TARTRATE 10 MG TABLET PO PRN (20:31)
[2018-11-21 00:10] VITALS: BP 134/81
[2018-11-21] MEDS: LEVOTHYROXINE SODIUM 50 MCG TABLET PO SCH (06:45)
[2018-11-21 08:04] VITALS: BP 130/78
[2018-11-21] MEDS: OXYBUTYNIN CHLORIDE 5 MG TABLET PO SCH (08:32)
[2018-11-21] MEDS: MULTIVITAMINS, THERAPEUTIC TABLET PO SCH (08:32)
[2018-11-21] MEDS: BENZTROPINE MESYLATE 2 MG TABLET PO SCH ×2 (08:32→21:05)
[2018-11-21] MEDS: SERTRALINE HCL 50 MG TABLET PO SCH (08:33)
[2018-11-21] MEDS: HYPROMELLOSE 0.5% 15 ML OPHTHALMIC SOLUTION OU PRN (15:04)
[2018-11-21 17:02] VITALS: BP 140/63
[2018-11-21] MEDS: HALOPERIDOL 5 MG TABLET PO PRN (18:55)
[2018-11-21] MEDS: QUEtiapine FUMARATE 200 MG TABLET PO SCH (21:05)
[2018-11-21] MEDS: DIVALPROEX SODIUM 500 MG ER TABLET PO SCH (21:06)
[2018-11-21] MEDS: ZOLPIDEM TARTRATE 10 MG TABLET PO PRN (21:17)
[2018-11-22] MEDS: LEVOTHYROXINE SODIUM 50 MCG TABLET PO SCH (06:21)
[2018-11-22 08:06] VITALS: BP 138/83
[2018-11-22] MEDS: MULTIVITAMINS, THERAPEUTIC TABLET PO SCH (08:20)
[2018-11-22] MEDS: SERTRALINE HCL 50 MG TABLET PO SCH (08:20)
[2018-11-22] MEDS: BENZTROPINE MESYLATE 2 MG TABLET PO SCH ×2 (08:20→20:23)
[2018-11-22] MEDS: OXYBUTYNIN CHLORIDE 5 MG TABLET PO SCH (08:21)
[2018-11-22] MEDS: LORazepam 2 MG TABLET PO PRN (15:07)
[2018-11-22 16:23] VITALS: BP 140/86
[2018-11-22] MEDS: ZOLPIDEM TARTRATE 10 MG TABLET PO PRN (20:23)
[2018-11-22] MEDS: QUEtiapine FUMARATE 200 MG TABLET PO SCH (20:23)
[2018-11-22] MEDS: DIVALPROEX SODIUM 500 MG ER TABLET PO SCH (20:23)
[2018-11-23] MEDS: LEVOTHYROXINE SODIUM 50 MCG TABLET PO SCH (06:24)
[2018-11-23] MEDS: HALOPERIDOL 5 MG TABLET PO PRN ×2 (08:31→16:17)
[2018-11-23] MEDS: SERTRALINE HCL 50 MG TABLET PO SCH (08:31)
[2018-11-23] MEDS: MULTIVITAMINS, THERAPEUTIC TABLET PO SCH (08:31)
[2018-11-23] MEDS: LORazepam 2 MG TABLET PO PRN ×2 (08:31→16:17)
[2018-11-23] MEDS: OXYBUTYNIN CHLORIDE 5 MG TABLET PO SCH (08:31)
[2018-11-23] MEDS: BENZTROPINE MESYLATE 2 MG TABLET PO SCH ×2 (08:31→21:13)
[2018-11-23 16:00] VITALS: BP 137/82
[2018-11-23] MEDS: QUEtiapine FUMARATE 200 MG TABLET PO SCH (21:12)
[2018-11-23] MEDS: ZOLPIDEM TARTRATE 10 MG TABLET PO PRN (21:13)
[2018-11-23] MEDS: DIVALPROEX SODIUM 500 MG ER TABLET PO SCH (21:13)
[2018-11-24 00:29] VITALS: BP 132/73
[2018-11-24] MEDS: LEVOTHYROXINE SODIUM 50 MCG TABLET PO SCH (06:40)
[2018-11-24 08:00] VITALS: BP 125/67
[2018-11-24] MEDS: MULTIVITAMINS, THERAPEUTIC TABLET PO SCH (08:34)
[2018-11-24] MEDS: BENZTROPINE MESYLATE 2 MG TABLET PO SCH ×2 (08:34→20:27)
[2018-11-24] MEDS: SERTRALINE HCL 50 MG TABLET PO SCH (08:34)
[2018-11-24] MEDS: OXYBUTYNIN CHLORIDE 5 MG TABLET PO SCH (08:34)
[2018-11-24] MEDS: LORazepam 2 MG TABLET PO PRN (16:33)
[2018-11-24 17:28] VITALS: BP 140/86
[2018-11-24] MEDS: DIVALPROEX SODIUM 500 MG ER TABLET PO SCH (20:27)
[2018-11-24] MEDS: QUEtiapine FUMARATE 200 MG TABLET PO SCH (20:27)
[2018-11-25 04:06] VITALS: BP 132/82
[2018-11-25] MEDS: HYPROMELLOSE 0.5% 15 ML OPHTHALMIC SOLUTION OU PRN (04:08)
[2018-11-25] MEDS: LEVOTHYROXINE SODIUM 50 MCG TABLET PO SCH (06:39)
[2018-11-25 08:08] VITALS: BP 128/80
[2018-11-25] MEDS: OXYBUTYNIN CHLORIDE 5 MG TABLET PO SCH (08:28)
[2018-11-25] MEDS: BENZTROPINE MESYLATE 2 MG TABLET PO SCH ×2 (08:28→21:00)
[2018-11-25] MEDS: LORazepam 2 MG TABLET PO PRN ×2 (08:28→16:35)
[2018-11-25] MEDS: SERTRALINE HCL 50 MG TABLET PO SCH (08:28)
[2018-11-25] MEDS: HALOPERIDOL 5 MG TABLET PO PRN ×2 (08:28→16:35)
[2018-11-25] MEDS: MULTIVITAMINS, THERAPEUTIC TABLET PO SCH (08:29)
[2018-11-25 16:00] VITALS: BP 138/86
[2018-11-25] MEDS: QUEtiapine FUMARATE 200 MG TABLET PO SCH (21:00)
[2018-11-25] MEDS: DIVALPROEX SODIUM 500 MG ER TABLET PO SCH (21:00)
[2018-11-25] MEDS: ZOLPIDEM TARTRATE 10 MG TABLET PO PRN (21:27)
[2018-11-26] MEDS: LEVOTHYROXINE SODIUM 50 MCG TABLET PO SCH (06:51)
[2018-11-26 08:05] VITALS: BP 132/82
[2018-11-26] MEDS: SERTRALINE HCL 50 MG TABLET PO SCH (08:49)
[2018-11-26] MEDS: OXYBUTYNIN CHLORIDE 5 MG TABLET PO SCH (08:49)
[2018-11-26] MEDS: LORazepam 2 MG TABLET PO PRN ×2 (08:49→16:36)
[2018-11-26] MEDS: HALOPERIDOL 5 MG TABLET PO PRN ×2 (08:49→16:36)
[2018-11-26] MEDS: BENZTROPINE MESYLATE 2 MG TABLET PO SCH ×2 (08:49→20:26)
[2018-11-26] MEDS: MULTIVITAMINS, THERAPEUTIC TABLET PO SCH (08:49)
[2018-11-26 16:00] VITALS: BP 135/87
[2018-11-26] MEDS: DIVALPROEX SODIUM 500 MG ER TABLET PO SCH (20:26)
[2018-11-26] MEDS: QUEtiapine FUMARATE 200 MG TABLET PO SCH (20:26)
[2018-11-26] MEDS: ZOLPIDEM TARTRATE 10 MG TABLET PO PRN (20:26)
[2018-11-27 00:30] VITALS: BP 132/83
[2018-11-27] MEDS: LEVOTHYROXINE SODIUM 50 MCG TABLET PO SCH (06:46)
[2018-11-27] MEDS: MULTIVITAMINS, THERAPEUTIC TABLET PO SCH (09:16)
[2018-11-27] MEDS: SERTRALINE HCL 50 MG TABLET PO SCH (09:16)
[2018-11-27] MEDS: OXYBUTYNIN CHLORIDE 5 MG TABLET PO SCH (09:16)
[2018-11-27] MEDS: BENZTROPINE MESYLATE 2 MG TABLET PO SCH ×2 (09:16→20:19)
[2018-11-27] MEDS: SIMETHICONE 80 MG CHEWABLE TABLET CHEW PRN (13:22)
[2018-11-27 14:33] VITALS: BP 139/85
[2018-11-27 16:00] VITALS: BP 138/85
[2018-11-27] MEDS: HALOPERIDOL 5 MG TABLET PO PRN (16:35)
[2018-11-27] MEDS: LORazepam 2 MG TABLET PO PRN (16:35)
[2018-11-27] MEDS: ZOLPIDEM TARTRATE 10 MG TABLET PO PRN (20:19)
[2018-11-27] MEDS: QUEtiapine FUMARATE 200 MG TABLET PO SCH (20:19)
[2018-11-27] MEDS: DIVALPROEX SODIUM 500 MG ER TABLET PO SCH (20:23)
[2018-11-28 00:56] VITALS: BP 135/88
[2018-11-28] MEDS: LEVOTHYROXINE SODIUM 50 MCG TABLET PO SCH (06:30)
[2018-11-28 08:05] VITALS: BP 136/72
[2018-11-28] MEDS: BENZTROPINE MESYLATE 2 MG TABLET PO SCH ×2 (08:28→20:22)
[2018-11-28] MEDS: MULTIVITAMINS, THERAPEUTIC TABLET PO SCH (08:28)
[2018-11-28] MEDS: OXYBUTYNIN CHLORIDE 5 MG TABLET PO SCH (08:28)
[2018-11-28] MEDS: LORazepam 2 MG TABLET PO PRN ×3 (08:28→20:37)
[2018-11-28] MEDS: SERTRALINE HCL 50 MG TABLET PO SCH (08:29)
[2018-11-28] MEDS: HALOPERIDOL 5 MG TABLET PO PRN ×2 (08:29→16:36)
[2018-11-28] MEDS: SIMETHICONE 80 MG CHEWABLE TABLET CHEW PRN ×2 (13:15→22:10)
[2018-11-28 16:53] VITALS: BP 130/75
[2018-11-28] MEDS: DIVALPROEX SODIUM 500 MG ER TABLET PO SCH (20:22)
[2018-11-28] MEDS: QUEtiapine FUMARATE 200 MG TABLET PO SCH (20:22)
[2018-11-28] MEDS: ZOLPIDEM TARTRATE 10 MG TABLET PO PRN (20:37)
[2018-11-29 00:06] VITALS: BP 113/68
[2018-11-29] MEDS: LEVOTHYROXINE SODIUM 50 MCG TABLET PO SCH (06:27)
[2018-11-29] MEDS: BENZTROPINE MESYLATE 2 MG TABLET PO SCH ×2 (09:06→20:22)
[2018-11-29] MEDS: MULTIVITAMINS, THERAPEUTIC TABLET PO SCH (09:06)
[2018-11-29] MEDS: SERTRALINE HCL 50 MG TABLET PO SCH (09:06)
[2018-11-29] MEDS: OXYBUTYNIN CHLORIDE 5 MG TABLET PO SCH (09:06)
[2018-11-29 09:51] VITALS: BP 128/78
[2018-11-29 16:18] VITALS: BP 140/84
[2018-11-29] MEDS: LORazepam 2 MG TABLET PO PRN (20:22)
[2018-11-29] MEDS: QUEtiapine FUMARATE 200 MG TABLET PO SCH (20:22)
[2018-11-29] MEDS: DIVALPROEX SODIUM 500 MG ER TABLET PO SCH (20:23)
[2018-11-30 02:45] VITALS: BP 131/82
[2018-11-30] MEDS: LEVOTHYROXINE SODIUM 50 MCG TABLET PO SCH (06:28)
[2018-11-30 08:04] VITALS: BP 130/76
[2018-11-30] MEDS: OXYBUTYNIN CHLORIDE 5 MG TABLET PO SCH (08:47)
[2018-11-30] MEDS: MULTIVITAMINS, THERAPEUTIC TABLET PO SCH (08:47)
[2018-11-30] MEDS: BENZTROPINE MESYLATE 2 MG TABLET PO SCH ×2 (08:47→20:14)
[2018-11-30] MEDS: SERTRALINE HCL 50 MG TABLET PO SCH (08:47)
[2018-11-30 16:00] VITALS: BP 128/78
[2018-11-30] MEDS: HALOPERIDOL 5 MG TABLET PO PRN (16:41)
[2018-11-30] MEDS: LORazepam 2 MG TABLET PO PRN (16:41)
[2018-11-30] MEDS: QUEtiapine FUMARATE 200 MG TABLET PO SCH (20:14)
[2018-11-30] MEDS: DIVALPROEX SODIUM 500 MG ER TABLET PO SCH (20:14)
[2018-11-30] MEDS: ZOLPIDEM TARTRATE 10 MG TABLET PO PRN (20:14)
[2018-12-01 00:07] VITALS: BP 137/81
[2018-12-01] MEDS: LEVOTHYROXINE SODIUM 50 MCG TABLET PO SCH (06:40)
[2018-12-01 08:03] VITALS: BP 126/81
[2018-12-01] MEDS: OXYBUTYNIN CHLORIDE 5 MG TABLET PO SCH (08:36)
[2018-12-01] MEDS: BENZTROPINE MESYLATE 2 MG TABLET PO SCH ×2 (08:36→20:20)
[2018-12-01] MEDS: MULTIVITAMINS, THERAPEUTIC TABLET PO SCH (08:36)
[2018-12-01] MEDS: SERTRALINE HCL 50 MG TABLET PO SCH (08:36)
[2018-12-01] MEDS: LORazepam 2 MG TABLET PO PRN (16:34)
[2018-12-01] MEDS: HALOPERIDOL 5 MG TABLET PO PRN (16:34)
[2018-12-01 16:35] VITALS: BP 128/76
[2018-12-01] MEDS: DIVALPROEX SODIUM 500 MG ER TABLET PO SCH (20:20)
[2018-12-01] MEDS: ZOLPIDEM TARTRATE 10 MG TABLET PO PRN (20:20)
[2018-12-01] MEDS: QUEtiapine FUMARATE 200 MG TABLET PO SCH (20:20)
[2018-12-02 06:23] VITALS: BP 132/77
[2018-12-02] MEDS: LEVOTHYROXINE SODIUM 50 MCG TABLET PO SCH (06:24)
[2018-12-02] MEDS: BENZTROPINE MESYLATE 2 MG TABLET PO SCH ×2 (08:45→20:08)
[2018-12-02] MEDS: MULTIVITAMINS, THERAPEUTIC TABLET PO SCH (08:45)
[2018-12-02] MEDS: SERTRALINE HCL 50 MG TABLET PO SCH (08:45)
[2018-12-02] MEDS: OXYBUTYNIN CHLORIDE 5 MG TABLET PO SCH (08:47)
[2018-12-02] MEDS: HALOPERIDOL 5 MG TABLET PO PRN ×2 (10:55→16:27)
[2018-12-02] MEDS: LORazepam 2 MG TABLET PO PRN ×2 (10:55→16:27)
[2018-12-02 16:18] VITALS: BP 130/77
[2018-12-02] MEDS: QUEtiapine FUMARATE 200 MG TABLET PO SCH (20:08)
[2018-12-02] MEDS: DIVALPROEX SODIUM 500 MG ER TABLET PO SCH (20:08)
[2018-12-02] MEDS: ZOLPIDEM TARTRATE 10 MG TABLET PO PRN (20:43)
[2018-12-03 05:31] VITALS: BP 135/80
[2018-12-03] MEDS: LEVOTHYROXINE SODIUM 50 MCG TABLET PO SCH (06:40)
[2018-12-03 08:17] VITALS: BP 140/66
[2018-12-03] MEDS: LORazepam 2 MG TABLET PO PRN (08:54)
[2018-12-03] MEDS: MULTIVITAMINS, THERAPEUTIC TABLET PO SCH (08:54)
[2018-12-03] MEDS: SERTRALINE HCL 50 MG TABLET PO SCH (08:54)
[2018-12-03] MEDS: BENZTROPINE MESYLATE 2 MG TABLET PO SCH ×2 (08:54→20:45)
[2018-12-03] MEDS: OXYBUTYNIN CHLORIDE 5 MG TABLET PO SCH (08:54)
[2018-12-03 16:04] VITALS: BP 131/77
[2018-12-03] MEDS: QUEtiapine FUMARATE 200 MG TABLET PO SCH (20:43)
[2018-12-03] MEDS: ZOLPIDEM TARTRATE 10 MG TABLET PO PRN (20:43)
[2018-12-03] MEDS: DIVALPROEX SODIUM 500 MG ER TABLET PO SCH (20:44)
[2018-12-04] MEDS: LEVOTHYROXINE SODIUM 50 MCG TABLET PO SCH (06:50)
[2018-12-04 08:05] VITALS: BP 133/84
[2018-12-04] MEDS: SERTRALINE HCL 50 MG TABLET PO SCH (09:18)
[2018-12-04] MEDS: OXYBUTYNIN CHLORIDE 5 MG TABLET PO SCH (09:19)
[2018-12-04] MEDS: MULTIVITAMINS, THERAPEUTIC TABLET PO SCH (09:19)
[2018-12-04] MEDS: BENZTROPINE MESYLATE 2 MG TABLET PO SCH ×2 (09:19→20:15)
[2018-12-04] MEDS: LORazepam 2 MG TABLET PO PRN (15:08)
[2018-12-04 16:43] VITALS: BP 140/89
[2018-12-04] MEDS: QUEtiapine FUMARATE 200 MG TABLET PO SCH (20:15)
[2018-12-04] MEDS: DIVALPROEX SODIUM 500 MG ER TABLET PO SCH (20:20)
[2018-12-05] MEDS: LEVOTHYROXINE SODIUM 50 MCG TABLET PO SCH (06:18)
[2018-12-05] MEDS: SERTRALINE HCL 50 MG TABLET PO SCH (09:00)
[2018-12-05] MEDS: MULTIVITAMINS, THERAPEUTIC TABLET PO SCH (09:00)
[2018-12-05] MEDS: OXYBUTYNIN CHLORIDE 5 MG TABLET PO SCH (09:00)
[2018-12-05] MEDS: BENZTROPINE MESYLATE 2 MG TABLET PO SCH ×2 (09:00→21:16)
[2018-12-05] MEDS ORDERED: LORazepam 2 MG/ML VIAL IM ONE (09:45)
[2018-12-05] MEDS ORDERED: DiphenhydrAMINE HCL 50 MG/ML VIAL IM ONE (09:45)
[2018-12-05] MEDS ORDERED: HALOPERIDOL LACTATE 5 MG/ML VIAL IM ONE (09:45)
[2018-12-05 11:09] VITALS: BP 148/69
[2018-12-05 16:00] VITALS: BP 138/87
[2018-12-05] MEDS: NICOTINE POLACRILEX 2 MG LOZENGE PO PRN (16:47)
[2018-12-05] MEDS: DIVALPROEX SODIUM 500 MG ER TABLET PO SCH (21:16)
[2018-12-05] MEDS: QUEtiapine FUMARATE 200 MG TABLET PO SCH (21:16)
[2018-12-05] MEDS: HALOPERIDOL 5 MG TABLET PO PRN (21:18)
[2018-12-06] MEDS: NICOTINE POLACRILEX 2 MG LOZENGE PO PRN ×3 (00:10→18:15)
[2018-12-06 00:30] VITALS: BP 133/86
[2018-12-06] MEDS: LEVOTHYROXINE SODIUM 50 MCG TABLET PO SCH (06:38)
[2018-12-06] MEDS: BENZTROPINE MESYLATE 2 MG TABLET PO SCH ×2 (09:06→21:00)
[2018-12-06] MEDS: MULTIVITAMINS, THERAPEUTIC TABLET PO SCH (09:06)
[2018-12-06] MEDS: SERTRALINE HCL 50 MG TABLET PO SCH (09:06)
[2018-12-06] MEDS: OXYBUTYNIN CHLORIDE 5 MG TABLET PO SCH (09:06)
[2018-12-06] MEDS: HALOPERIDOL 5 MG TABLET PO PRN (09:06)
[2018-12-06 09:20] VITALS: BP 106/70
[2018-12-06] MEDS: QUEtiapine FUMARATE 200 MG TABLET PO SCH ×2 (21:00→22:49)
[2018-12-06] MEDS: DIVALPROEX SODIUM 500 MG ER TABLET PO SCH (21:00)
[2018-12-07] MEDS: LEVOTHYROXINE SODIUM 50 MCG TABLET PO SCH (06:47)
[2018-12-07] MEDS: NICOTINE POLACRILEX 2 MG LOZENGE PO PRN ×2 (07:47→17:40)
[2018-12-07] MEDS: OXYBUTYNIN CHLORIDE 5 MG TABLET PO SCH (08:01)
[2018-12-07] MEDS: MULTIVITAMINS, THERAPEUTIC TABLET PO SCH (08:01)
[2018-12-07] MEDS: HALOPERIDOL 5 MG TABLET PO PRN (08:01)
[2018-12-07] MEDS: SERTRALINE HCL 50 MG TABLET PO SCH (08:01)
[2018-12-07] MEDS: BENZTROPINE MESYLATE 2 MG TABLET PO SCH ×2 (08:01→20:52)
[2018-12-07 16:00] VITALS: BP 118/85
[2018-12-07] MEDS: QUEtiapine FUMARATE 200 MG TABLET PO SCH (20:52)
[2018-12-07] MEDS: SIMETHICONE 80 MG CHEWABLE TABLET CHEW PRN (20:52)
[2018-12-07] MEDS ORDERED: DIVALPROEX SODIUM 500 MG DR TABLET PO SCH (21:00)
[2018-12-08] MEDS: LEVOTHYROXINE SODIUM 50 MCG TABLET PO SCH (06:35)
[2018-12-08 08:10] VITALS: BP 126/80
[2018-12-08] MEDS: SERTRALINE HCL 50 MG TABLET PO SCH (08:32)
[2018-12-08] MEDS: MULTIVITAMINS, THERAPEUTIC TABLET PO SCH (08:32)
[2018-12-08] MEDS: BENZTROPINE MESYLATE 2 MG TABLET PO SCH ×2 (08:32→20:05)
[2018-12-08] MEDS: OXYBUTYNIN CHLORIDE 5 MG TABLET PO SCH (08:32)
[2018-12-08] MEDS: NICOTINE POLACRILEX 2 MG LOZENGE PO PRN (08:34)
[2018-12-08] MEDS: DIVALPROEX SODIUM 500 MG DR TABLET PO SCH ×2 (12:57→16:10)
[2018-12-08 16:00] VITALS: BP 138/86
[2018-12-08] MEDS: QUEtiapine FUMARATE 200 MG TABLET PO SCH (20:05)
[2018-12-09] MEDS: LEVOTHYROXINE SODIUM 50 MCG TABLET PO SCH (06:47)
[2018-12-09] MEDS: NICOTINE POLACRILEX 2 MG LOZENGE PO PRN ×2 (07:18→16:19)
[2018-12-09 08:05] VITALS: BP 136/86
[2018-12-09] MEDS: SERTRALINE HCL 50 MG TABLET PO SCH (08:29)
[2018-12-09] MEDS: OXYBUTYNIN CHLORIDE 5 MG TABLET PO SCH (08:29)
[2018-12-09] MEDS: MULTIVITAMINS, THERAPEUTIC TABLET PO SCH (08:30)
[2018-12-09] MEDS: BENZTROPINE MESYLATE 2 MG TABLET PO SCH ×2 (08:30→20:45)
[2018-12-09] MEDS: DIVALPROEX SODIUM 500 MG DR TABLET PO SCH ×3 (08:30→16:18)
[2018-12-09 16:18] VITALS: BP 139/88
[2018-12-09] MEDS: LORazepam 2 MG TABLET PO PRN ×2 (16:18→20:45)
[2018-12-09] MEDS: QUEtiapine FUMARATE 200 MG TABLET PO SCH (20:45)
[2018-12-10] MEDS: LEVOTHYROXINE SODIUM 50 MCG TABLET PO SCH (06:10)
[2018-12-10 08:05] VITALS: BP 132/84
[2018-12-10] MEDS: DIVALPROEX SODIUM 500 MG DR TABLET PO SCH ×3 (08:38→16:27)
[2018-12-10] MEDS: SERTRALINE HCL 50 MG TABLET PO SCH (08:38)
[2018-12-10] MEDS: OXYBUTYNIN CHLORIDE 5 MG TABLET PO SCH (08:38)
[2018-12-10] MEDS: MULTIVITAMINS, THERAPEUTIC TABLET PO SCH (08:38)
[2018-12-10] MEDS: BENZTROPINE MESYLATE 2 MG TABLET PO SCH ×2 (08:38→20:45)
[2018-12-10] MEDS: NICOTINE POLACRILEX 2 MG LOZENGE PO PRN ×2 (08:39→20:45)
[2018-12-10] MEDS: HALOPERIDOL 5 MG TABLET PO PRN (11:14)
[2018-12-10] MEDS: LORazepam 2 MG TABLET PO PRN ×2 (16:27→20:45)
[2018-12-10 17:24] VITALS: BP 131/70
[2018-12-10] MEDS: QUEtiapine FUMARATE 200 MG TABLET PO SCH (20:45)
[2018-12-11 00:18] VITALS: BP 125/69
[2018-12-11] MEDS: LEVOTHYROXINE SODIUM 50 MCG TABLET PO SCH (06:27)
[2018-12-11 08:21] VITALS: BP 150/75
[2018-12-11] MEDS: BENZTROPINE MESYLATE 2 MG TABLET PO SCH ×2 (08:43→20:20)
[2018-12-11] MEDS: DIVALPROEX SODIUM 500 MG DR TABLET PO SCH ×3 (08:43→16:33)
[2018-12-11] MEDS: OXYBUTYNIN CHLORIDE 5 MG TABLET PO SCH (08:43)
[2018-12-11] MEDS: SERTRALINE HCL 50 MG TABLET PO SCH (08:43)
[2018-12-11] MEDS: MULTIVITAMINS, THERAPEUTIC TABLET PO SCH (08:43)
[2018-12-11] MEDS: NICOTINE POLACRILEX 2 MG LOZENGE PO PRN ×2 (08:44→16:44)
[2018-12-11] MEDS: LORazepam 2 MG TABLET PO PRN ×2 (11:03→16:33)
[2018-12-11 16:00] VITALS: BP 137/87
[2018-12-11] MEDS: HALOPERIDOL 5 MG TABLET PO PRN (16:33)
[2018-12-11] MEDS: QUEtiapine FUMARATE 200 MG TABLET PO SCH (20:20)
[2018-12-12 06:26] VITALS: BP 122/86
[2018-12-12] MEDS: LEVOTHYROXINE SODIUM 50 MCG TABLET PO SCH (06:30)
[2018-12-12] MEDS: NICOTINE POLACRILEX 2 MG LOZENGE PO PRN (07:14)
[2018-12-12 08:05] VITALS: BP 127/84
[2018-12-12] MEDS: DIVALPROEX SODIUM 500 MG DR TABLET PO SCH ×3 (08:47→16:50)
[2018-12-12] MEDS: MULTIVITAMINS, THERAPEUTIC TABLET PO SCH (08:47)
[2018-12-12] MEDS: SERTRALINE HCL 50 MG TABLET PO SCH (08:47)
[2018-12-12] MEDS: HALOPERIDOL 5 MG TABLET PO PRN (08:47)
[2018-12-12] MEDS: OXYBUTYNIN CHLORIDE 5 MG TABLET PO SCH (08:47)
[2018-12-12] MEDS: BENZTROPINE MESYLATE 2 MG TABLET PO SCH ×2 (08:47→20:51)
[2018-12-12] MEDS: LORazepam 2 MG TABLET PO PRN ×4 (08:47→20:51)
[2018-12-12 17:11] VITALS: BP 123/77
[2018-12-12] MEDS: QUEtiapine FUMARATE 200 MG TABLET PO SCH (20:51)
[2018-12-13] MEDS: LEVOTHYROXINE SODIUM 50 MCG TABLET PO SCH (06:27)
[2018-12-13 06:29] VITALS: BP 125/82
[2018-12-13] MEDS: NICOTINE POLACRILEX 2 MG LOZENGE PO PRN ×2 (06:47→17:09)
[2018-12-13 08:00] VITALS: BP 138/84
[2018-12-13] MEDS: MULTIVITAMINS, THERAPEUTIC TABLET PO SCH (08:41)
[2018-12-13] MEDS: DIVALPROEX SODIUM 500 MG DR TABLET PO SCH ×3 (08:41→17:09)
[2018-12-13] MEDS: OXYBUTYNIN CHLORIDE 5 MG TABLET PO SCH (08:41)
[2018-12-13] MEDS: SERTRALINE HCL 50 MG TABLET PO SCH (08:41)
[2018-12-13] MEDS: BENZTROPINE MESYLATE 2 MG TABLET PO SCH ×2 (08:41→20:33)
[2018-12-13] MEDS: LORazepam 2 MG TABLET PO PRN ×3 (08:41→17:09)
[2018-12-13] MEDS: HALOPERIDOL 5 MG TABLET PO PRN ×2 (08:41→12:52)
[2018-12-13 16:00] VITALS: BP 142/82
[2018-12-13] MEDS: QUEtiapine FUMARATE 200 MG TABLET PO SCH (20:33)
[2018-12-14] MEDS: NICOTINE POLACRILEX 2 MG LOZENGE PO PRN (04:44)
[2018-12-14 05:07] VITALS: BP 132/81
[2018-12-14] MEDS: LEVOTHYROXINE SODIUM 50 MCG TABLET PO SCH (06:23)
[2018-12-14 08:04] VITALS: BP 128/78
[2018-12-14] MEDS: OXYBUTYNIN CHLORIDE 5 MG TABLET PO SCH (08:34)
[2018-12-14] MEDS: DIVALPROEX SODIUM 500 MG DR TABLET PO SCH ×3 (08:34→16:12)
[2018-12-14] MEDS: MULTIVITAMINS, THERAPEUTIC TABLET PO SCH (08:34)
[2018-12-14] MEDS: SERTRALINE HCL 50 MG TABLET PO SCH (08:34)
[2018-12-14] MEDS: BENZTROPINE MESYLATE 2 MG TABLET PO SCH ×2 (08:34→20:05)
[2018-12-14 16:00] VITALS: BP 131/84
[2018-12-14] MEDS: LORazepam 2 MG TABLET PO PRN (16:12)
[2018-12-14] MEDS: QUEtiapine FUMARATE 200 MG TABLET PO SCH (20:05)
[2018-12-15 04:33] VITALS: BP 142/95
[2018-12-15] MEDS: NICOTINE POLACRILEX 2 MG LOZENGE PO PRN (04:35)
[2018-12-15] MEDS: LEVOTHYROXINE SODIUM 50 MCG TABLET PO SCH (06:27)
[2018-12-15] MEDS: LORazepam 2 MG TABLET PO PRN ×3 (08:24→16:50)
[2018-12-15] MEDS: SERTRALINE HCL 50 MG TABLET PO SCH (08:24)
[2018-12-15] MEDS: OXYBUTYNIN CHLORIDE 5 MG TABLET PO SCH (08:25)
[2018-12-15] MEDS: MULTIVITAMINS, THERAPEUTIC TABLET PO SCH (08:25)
[2018-12-15] MEDS: BENZTROPINE MESYLATE 2 MG TABLET PO SCH ×2 (08:25→20:29)
[2018-12-15] MEDS: DIVALPROEX SODIUM 500 MG DR TABLET PO SCH ×3 (08:25→16:50)
[2018-12-15 08:36] VITALS: BP 130/86
[2018-12-15 16:35] VITALS: BP 140/90
[2018-12-15] MEDS: HALOPERIDOL 5 MG TABLET PO PRN (16:50)
[2018-12-15] MEDS: QUEtiapine FUMARATE 200 MG TABLET PO SCH (20:29)
[2018-12-16] MEDS: NICOTINE POLACRILEX 2 MG LOZENGE PO PRN ×2 (01:29→20:40)
[2018-12-16 06:31] VITALS: BP 132/88
[2018-12-16] MEDS: LEVOTHYROXINE SODIUM 50 MCG TABLET PO SCH (06:35)
[2018-12-16 08:06] VITALS: BP 130/82
[2018-12-16] MEDS: DIVALPROEX SODIUM 500 MG DR TABLET PO SCH ×3 (08:29→16:28)
[2018-12-16] MEDS: LORazepam 2 MG TABLET PO PRN ×3 (08:29→20:41)
[2018-12-16] MEDS: HALOPERIDOL 5 MG TABLET PO PRN (08:29)
[2018-12-16] MEDS: OXYBUTYNIN CHLORIDE 5 MG TABLET PO SCH (08:29)
[2018-12-16] MEDS: MULTIVITAMINS, THERAPEUTIC TABLET PO SCH (08:29)
[2018-12-16] MEDS: SERTRALINE HCL 50 MG TABLET PO SCH (08:29)
[2018-12-16] MEDS: BENZTROPINE MESYLATE 2 MG TABLET PO SCH ×2 (08:29→20:41)
[2018-12-16 16:00] VITALS: BP 138/88
[2018-12-16] MEDS: QUEtiapine FUMARATE 200 MG TABLET PO SCH (20:41)
[2018-12-17 02:38] VITALS: BP 132/82
[2018-12-17] MEDS: NICOTINE POLACRILEX 2 MG LOZENGE PO PRN ×3 (05:05→22:36)
[2018-12-17] MEDS: LEVOTHYROXINE SODIUM 50 MCG TABLET PO SCH (06:13)
[2018-12-17 08:03] VITALS: BP 123/82
[2018-12-17] MEDS: OXYBUTYNIN CHLORIDE 5 MG TABLET PO SCH (08:33)
[2018-12-17] MEDS: BENZTROPINE MESYLATE 2 MG TABLET PO SCH ×2 (08:33→20:18)
[2018-12-17] MEDS: MULTIVITAMINS, THERAPEUTIC TABLET PO SCH (08:33)
[2018-12-17] MEDS: DIVALPROEX SODIUM 500 MG DR TABLET PO SCH ×3 (08:33→16:16)
[2018-12-17] MEDS: SERTRALINE HCL 50 MG TABLET PO SCH (09:56)
[2018-12-17 16:00] VITALS: BP 138/85
[2018-12-17] MEDS: LORazepam 2 MG TABLET PO PRN ×2 (16:16→20:18)
[2018-12-17] MEDS: QUEtiapine FUMARATE 200 MG TABLET PO SCH (20:18)
[2018-12-18] MEDS: LEVOTHYROXINE SODIUM 50 MCG TABLET PO SCH (06:36)
[2018-12-18] MEDS: NICOTINE POLACRILEX 2 MG LOZENGE PO PRN ×2 (06:36→16:02)
[2018-12-18 07:18] VITALS: BP 132/79
[2018-12-18 08:04] VITALS: BP 123/80
[2018-12-18] MEDS: BENZTROPINE MESYLATE 2 MG TABLET PO SCH ×2 (08:05→20:29)
[2018-12-18] MEDS: MULTIVITAMINS, THERAPEUTIC TABLET PO SCH (08:05)
[2018-12-18] MEDS: SERTRALINE HCL 50 MG TABLET PO SCH (08:05)
[2018-12-18] MEDS: DIVALPROEX SODIUM 500 MG DR TABLET PO SCH ×3 (08:05→16:01)
[2018-12-18] MEDS: OXYBUTYNIN CHLORIDE 5 MG TABLET PO SCH (08:05)
[2018-12-18] MEDS: HALOPERIDOL 5 MG TABLET PO PRN (09:55)
[2018-12-18] MEDS: LORazepam 2 MG TABLET PO PRN ×3 (09:55→20:29)
[2018-12-18 16:02] VITALS: BP 139/79
[2018-12-18] MEDS: QUEtiapine FUMARATE 200 MG TABLET PO SCH (20:29)
[2018-12-19 06:30] VITALS: BP 132/82
[2018-12-19] MEDS: NICOTINE POLACRILEX 2 MG LOZENGE PO PRN ×2 (06:32→21:54)
[2018-12-19] MEDS: LEVOTHYROXINE SODIUM 50 MCG TABLET PO SCH (06:32)
[2018-12-19] MEDS: BENZTROPINE MESYLATE 2 MG TABLET PO SCH ×2 (08:29→20:24)
[2018-12-19] MEDS: MULTIVITAMINS, THERAPEUTIC TABLET PO SCH (08:29)
[2018-12-19] MEDS: SERTRALINE HCL 50 MG TABLET PO SCH (08:29)
[2018-12-19] MEDS: DIVALPROEX SODIUM 500 MG DR TABLET PO SCH ×3 (08:29→16:16)
[2018-12-19] MEDS: OXYBUTYNIN CHLORIDE 5 MG TABLET PO SCH ×3 (08:29→16:16)
[2018-12-19 08:38] VITALS: BP 140/82
[2018-12-19 17:27] VITALS: BP 149/88
[2018-12-19] MEDS: LORazepam 2 MG TABLET PO PRN (17:39)
[2018-12-19] MEDS: HALOPERIDOL 5 MG TABLET PO PRN (17:39)
[2018-12-19] MEDS: QUEtiapine FUMARATE 200 MG TABLET PO SCH (20:24)
[2018-12-20 00:30] VITALS: BP 145/86
[2018-12-20] MEDS: LEVOTHYROXINE SODIUM 50 MCG TABLET PO SCH (06:35)
[2018-12-20] MEDS: NICOTINE POLACRILEX 2 MG LOZENGE PO PRN (06:35)
[2018-12-20 08:04] VITALS: BP 130/77
[2018-12-20] MEDS: MULTIVITAMINS, THERAPEUTIC TABLET PO SCH (08:13)
[2018-12-20] MEDS: DIVALPROEX SODIUM 500 MG DR TABLET PO SCH ×3 (08:13→16:14)
[2018-12-20] MEDS: OXYBUTYNIN CHLORIDE 5 MG TABLET PO SCH ×2 (08:13→16:14)
[2018-12-20] MEDS: BENZTROPINE MESYLATE 2 MG TABLET PO SCH ×2 (08:13→20:17)
[2018-12-20] MEDS: SERTRALINE HCL 50 MG TABLET PO SCH (08:13)
[2018-12-20] MEDS: LORazepam 2 MG TABLET PO PRN (08:13)
[2018-12-20 16:10] VITALS: BP 146/81
[2018-12-20] MEDS: QUEtiapine FUMARATE 200 MG TABLET PO SCH (20:17)
[2018-12-21 05:56] VITALS: BP 135/86
[2018-12-21] MEDS: LEVOTHYROXINE SODIUM 50 MCG TABLET PO SCH (06:27)
[2018-12-21] MEDS: NICOTINE POLACRILEX 2 MG LOZENGE PO PRN ×2 (06:32→16:09)
[2018-12-21 08:03] VITALS: BP 136/84
[2018-12-21] MEDS: LORazepam 2 MG TABLET PO PRN ×2 (08:13→16:08)
[2018-12-21] MEDS: MULTIVITAMINS, THERAPEUTIC TABLET PO SCH (08:13)
[2018-12-21] MEDS: OXYBUTYNIN CHLORIDE 5 MG TABLET PO SCH ×2 (08:13→16:08)
[2018-12-21] MEDS: BENZTROPINE MESYLATE 2 MG TABLET PO SCH ×2 (08:13→21:12)
[2018-12-21] MEDS: DIVALPROEX SODIUM 500 MG DR TABLET PO SCH ×3 (08:13→16:08)
[2018-12-21] MEDS: SERTRALINE HCL 50 MG TABLET PO SCH (08:13)
[2018-12-21 16:09] VITALS: BP 134/90
[2018-12-21] MEDS ORDERED: LORazepam 2 MG/ML VIAL ONE (18:15)
[2018-12-21] MEDS ORDERED: LORazepam 2 MG/ML VIAL IM ONE (18:15)
[2018-12-21] MEDS ORDERED: DiphenhydrAMINE HCL 50 MG/ML VIAL IM ONE (18:15)
[2018-12-21] MEDS ORDERED: HALOPERIDOL LACTATE 5 MG/ML VIAL IM ONE (18:15)
[2018-12-21] MEDS ORDERED: DiphenhydrAMINE HCL 50 MG/ML VIAL ONE (18:16)
[2018-12-21] MEDS: QUEtiapine FUMARATE 200 MG TABLET PO SCH (21:12)
[2018-12-22] MEDS: NICOTINE POLACRILEX 2 MG LOZENGE PO PRN ×3 (03:38→16:23)
[2018-12-22] MEDS: LEVOTHYROXINE SODIUM 50 MCG TABLET PO SCH (06:28)
[2018-12-22 08:04] VITALS: BP 129/88
[2018-12-22] MEDS: SERTRALINE HCL 50 MG TABLET PO SCH (08:38)
[2018-12-22] MEDS: OXYBUTYNIN CHLORIDE 5 MG TABLET PO SCH ×2 (08:38→16:23)
[2018-12-22] MEDS: DIVALPROEX SODIUM 500 MG DR TABLET PO SCH ×3 (08:38→16:23)
[2018-12-22] MEDS: MULTIVITAMINS, THERAPEUTIC TABLET PO SCH (08:38)
[2018-12-22] MEDS: BENZTROPINE MESYLATE 2 MG TABLET PO SCH ×2 (08:47→21:03)
[2018-12-22 16:00] VITALS: BP 137/81
[2018-12-22] MEDS: LORazepam 2 MG TABLET PO PRN (16:23)
[2018-12-22] MEDS: QUEtiapine FUMARATE 200 MG TABLET PO SCH (21:03)
[2018-12-23 06:19] VITALS: BP 126/79
[2018-12-23] MEDS: NICOTINE POLACRILEX 2 MG LOZENGE PO PRN ×2 (06:27→14:41)
[2018-12-23] MEDS: LEVOTHYROXINE SODIUM 50 MCG TABLET PO SCH (06:41)
[2018-12-23 08:02] VITALS: BP 135/84
[2018-12-23] MEDS: SERTRALINE HCL 50 MG TABLET PO SCH (08:13)
[2018-12-23] MEDS: MULTIVITAMINS, THERAPEUTIC TABLET PO SCH (08:13)
[2018-12-23] MEDS: OXYBUTYNIN CHLORIDE 5 MG TABLET PO SCH ×2 (08:13→16:29)
[2018-12-23] MEDS: DIVALPROEX SODIUM 500 MG DR TABLET PO SCH ×3 (08:13→16:29)
[2018-12-23] MEDS: BENZTROPINE MESYLATE 2 MG TABLET PO SCH ×2 (08:14→20:40)
[2018-12-23 16:00] VITALS: BP 140/90
[2018-12-23] MEDS: LORazepam 2 MG TABLET PO PRN ×2 (16:29→20:40)
[2018-12-23] MEDS: QUEtiapine FUMARATE 200 MG TABLET PO SCH (20:40)
[2018-12-24 03:25] VITALS: BP 153/96
[2018-12-24] MEDS: LEVOTHYROXINE SODIUM 50 MCG TABLET PO SCH (06:10)
[2018-12-24] MEDS: NICOTINE POLACRILEX 2 MG LOZENGE PO PRN ×2 (07:10→15:31)
[2018-12-24 08:02] VITALS: BP 134/80
[2018-12-24] MEDS: OXYBUTYNIN CHLORIDE 5 MG TABLET PO SCH ×2 (08:08→16:09)
[2018-12-24] MEDS: MULTIVITAMINS, THERAPEUTIC TABLET PO SCH (08:08)
[2018-12-24] MEDS: BENZTROPINE MESYLATE 2 MG TABLET PO SCH ×2 (08:08→20:19)
[2018-12-24] MEDS: DIVALPROEX SODIUM 500 MG DR TABLET PO SCH ×3 (08:08→16:09)
[2018-12-24] MEDS: SERTRALINE HCL 50 MG TABLET PO SCH (08:08)
[2018-12-24] MEDS: LORazepam 2 MG TABLET PO PRN ×2 (10:01→18:03)
[2018-12-24] MEDS: HALOPERIDOL 5 MG TABLET PO PRN ×2 (10:01→18:03)
[2018-12-24 16:00] VITALS: BP 138/75
[2018-12-24] MEDS: QUEtiapine FUMARATE 200 MG TABLET PO SCH (20:19)
[2018-12-25] MEDS: NICOTINE POLACRILEX 2 MG LOZENGE PO PRN ×3 (00:05→16:29)
[2018-12-25 06:06] VITALS: BP 132/82
[2018-12-25] MEDS: LEVOTHYROXINE SODIUM 50 MCG TABLET PO SCH (06:08)
[2018-12-25 08:10] VITALS: BP 134/80
[2018-12-25] MEDS: MULTIVITAMINS, THERAPEUTIC TABLET PO SCH (08:14)
[2018-12-25] MEDS: DIVALPROEX SODIUM 500 MG DR TABLET PO SCH ×3 (08:14→16:27)
[2018-12-25] MEDS: SERTRALINE HCL 50 MG TABLET PO SCH (08:14)
[2018-12-25] MEDS: BENZTROPINE MESYLATE 2 MG TABLET PO SCH ×2 (08:14→20:07)
[2018-12-25] MEDS: OXYBUTYNIN CHLORIDE 5 MG TABLET PO SCH ×2 (08:14→16:26)
[2018-12-25 16:00] VITALS: BP 135/85
[2018-12-25] MEDS: LORazepam 2 MG TABLET PO PRN (16:28)
[2018-12-25] MEDS: QUEtiapine FUMARATE 200 MG TABLET PO SCH (20:07)
[2018-12-25] MEDS: GuaiFENesin/D-METHORPHAN [SUGAR-FREE] 200-20MG/10 ML SYRUP UDCUP PO PRN (20:29)
[2018-12-25] MEDS: SIMETHICONE 80 MG CHEWABLE TABLET CHEW PRN (20:29)
[2018-12-26 04:47] VITALS: BP 128/81
[2018-12-26] MEDS: LEVOTHYROXINE SODIUM 50 MCG TABLET PO SCH (06:38)
[2018-12-26] MEDS: NICOTINE POLACRILEX 2 MG LOZENGE PO PRN ×3 (06:38→23:09)
[2018-12-26] MEDS: MULTIVITAMINS, THERAPEUTIC TABLET PO SCH (08:20)
[2018-12-26] MEDS: SERTRALINE HCL 50 MG TABLET PO SCH (08:20)
[2018-12-26] MEDS: OXYBUTYNIN CHLORIDE 5 MG TABLET PO SCH ×2 (08:20→17:24)
[2018-12-26] MEDS: DIVALPROEX SODIUM 500 MG DR TABLET PO SCH ×3 (08:20→17:23)
[2018-12-26] MEDS: BENZTROPINE MESYLATE 2 MG TABLET PO SCH ×2 (08:20→20:40)
[2018-12-26 08:31] VITALS: BP 140/87
[2018-12-26 16:00] VITALS: BP 138/84
[2018-12-26] MEDS: HALOPERIDOL 5 MG TABLET PO PRN (17:24)
[2018-12-26] MEDS: QUEtiapine FUMARATE 200 MG TABLET PO SCH (20:40)
[2018-12-27] MEDS: LORazepam 2 MG TABLET PO PRN (00:27)
[2018-12-27 00:28] VITALS: BP 127/87
[2018-12-27] MEDS: LEVOTHYROXINE SODIUM 50 MCG TABLET PO SCH (06:03)
[2018-12-27 08:00] VITALS: BP 142/89
[2018-12-27] MEDS: DIVALPROEX SODIUM 500 MG DR TABLET PO SCH ×3 (08:05→16:10)
[2018-12-27] MEDS: MULTIVITAMINS, THERAPEUTIC TABLET PO SCH (08:05)
[2018-12-27] MEDS: BENZTROPINE MESYLATE 2 MG TABLET PO SCH ×2 (08:05→20:06)
[2018-12-27] MEDS: SERTRALINE HCL 50 MG TABLET PO SCH (08:05)
[2018-12-27] MEDS: OXYBUTYNIN CHLORIDE 5 MG TABLET PO SCH ×2 (08:05→16:10)
[2018-12-27] MEDS: NICOTINE POLACRILEX 2 MG LOZENGE PO PRN ×2 (08:12→16:40)
[2018-12-27 16:08] VITALS: BP 140/80
[2018-12-27] MEDS: QUEtiapine FUMARATE 200 MG TABLET PO SCH (20:06)
[2018-12-28] MEDS: NICOTINE POLACRILEX 2 MG LOZENGE PO PRN ×3 (00:28→17:23)
[2018-12-28 00:36] VITALS: BP 122/96
[2018-12-28] MEDS: LEVOTHYROXINE SODIUM 50 MCG TABLET PO SCH (06:34)
[2018-12-28 08:02] VITALS: BP 128/83
[2018-12-28] MEDS: OXYBUTYNIN CHLORIDE 5 MG TABLET PO SCH ×2 (09:21→16:38)
[2018-12-28] MEDS: DIVALPROEX SODIUM 500 MG DR TABLET PO SCH ×3 (09:21→16:38)
[2018-12-28] MEDS: SERTRALINE HCL 50 MG TABLET PO SCH (09:21)
[2018-12-28] MEDS: BENZTROPINE MESYLATE 2 MG TABLET PO SCH ×2 (09:21→20:28)
[2018-12-28] MEDS: MULTIVITAMINS, THERAPEUTIC TABLET PO SCH (09:23)
[2018-12-28 16:00] VITALS: BP 128/88
[2018-12-28] MEDS: HALOPERIDOL 5 MG TABLET PO PRN (16:38)
[2018-12-28] MEDS: LORazepam 2 MG TABLET PO PRN (16:38)
[2018-12-28] MEDS: QUEtiapine FUMARATE 200 MG TABLET PO SCH (20:28)
[2018-12-29] MEDS: LEVOTHYROXINE SODIUM 50 MCG TABLET PO SCH (06:28)
[2018-12-29] MEDS: NICOTINE POLACRILEX 2 MG LOZENGE PO PRN ×2 (06:52→16:14)
[2018-12-29 08:15] VITALS: BP 122/86
[2018-12-29] MEDS: MULTIVITAMINS, THERAPEUTIC TABLET PO SCH (08:42)
[2018-12-29] MEDS: OXYBUTYNIN CHLORIDE 5 MG TABLET PO SCH ×2 (08:42→16:14)
[2018-12-29] MEDS: BENZTROPINE MESYLATE 2 MG TABLET PO SCH ×2 (08:42→20:22)
[2018-12-29] MEDS: DIVALPROEX SODIUM 500 MG DR TABLET PO SCH ×3 (08:42→16:13)
[2018-12-29] MEDS: LORazepam 2 MG TABLET PO PRN ×2 (08:42→16:14)
[2018-12-29] MEDS: SERTRALINE HCL 50 MG TABLET PO SCH (08:42)
[2018-12-29 16:00] VITALS: BP 146/86
[2018-12-29] MEDS: HALOPERIDOL 5 MG TABLET PO PRN (16:14)
[2018-12-29] MEDS: QUEtiapine FUMARATE 200 MG TABLET PO SCH (20:22)
[2018-12-30] MEDS: NICOTINE POLACRILEX 2 MG LOZENGE PO PRN ×2 (02:33→11:08)
[2018-12-30 05:19] VITALS: BP 123/85
[2018-12-30] MEDS: LEVOTHYROXINE SODIUM 50 MCG TABLET PO SCH (06:30)
[2018-12-30 08:22] VITALS: BP 140/97
[2018-12-30] MEDS: OXYBUTYNIN CHLORIDE 5 MG TABLET PO SCH ×2 (08:38→16:15)
[2018-12-30] MEDS: SERTRALINE HCL 50 MG TABLET PO SCH (08:38)
[2018-12-30] MEDS: MULTIVITAMINS, THERAPEUTIC TABLET PO SCH (08:38)
[2018-12-30] MEDS: DIVALPROEX SODIUM 500 MG DR TABLET PO SCH ×3 (08:39→16:14)
[2018-12-30] MEDS: BENZTROPINE MESYLATE 2 MG TABLET PO SCH ×2 (08:43→20:34)
[2018-12-30 16:00] VITALS: BP 129/87
[2018-12-30] MEDS: LORazepam 2 MG TABLET PO PRN ×2 (16:15→20:34)
[2018-12-30] MEDS: QUEtiapine FUMARATE 200 MG TABLET PO SCH (20:34)
[2018-12-31] MEDS: NICOTINE POLACRILEX 2 MG LOZENGE PO PRN ×3 (05:19→22:22)
[2018-12-31 05:23] VITALS: BP 144/86
[2018-12-31] MEDS: LEVOTHYROXINE SODIUM 50 MCG TABLET PO SCH (06:30)
[2018-12-31 08:08] VITALS: BP 138/84
[2018-12-31] MEDS: BENZTROPINE MESYLATE 2 MG TABLET PO SCH ×2 (08:18→21:17)
[2018-12-31] MEDS: SERTRALINE HCL 50 MG TABLET PO SCH (08:19)
[2018-12-31] MEDS: MULTIVITAMINS, THERAPEUTIC TABLET PO SCH (08:19)
[2018-12-31] MEDS: DIVALPROEX SODIUM 500 MG DR TABLET PO SCH ×3 (08:19→16:54)
[2018-12-31] MEDS: OXYBUTYNIN CHLORIDE 5 MG TABLET PO SCH ×2 (08:19→16:54)
[2018-12-31] MEDS: HALOPERIDOL 5 MG TABLET PO PRN (10:00)
[2018-12-31] MEDS: LORazepam 2 MG TABLET PO PRN ×3 (10:00→21:17)
[2018-12-31 16:00] VITALS: BP 125/72
[2018-12-31] MEDS: QUEtiapine FUMARATE 200 MG TABLET PO SCH (21:17)
[2019-01-01] MEDS: NICOTINE POLACRILEX 2 MG LOZENGE PO PRN ×3 (05:12→22:51)
[2019-01-01] MEDS: LEVOTHYROXINE SODIUM 50 MCG TABLET PO SCH (06:19)
[2019-01-01 07:13] VITALS: BP 107/69
[2019-01-01 08:16] VITALS: BP 137/83
[2019-01-01] MEDS: MULTIVITAMINS, THERAPEUTIC TABLET PO SCH (08:35)
[2019-01-01] MEDS: OXYBUTYNIN CHLORIDE 5 MG TABLET PO SCH ×2 (08:35→16:07)
[2019-01-01] MEDS: DIVALPROEX SODIUM 500 MG DR TABLET PO SCH ×3 (08:35→16:07)
[2019-01-01] MEDS: BENZTROPINE MESYLATE 2 MG TABLET PO SCH ×2 (08:35→20:10)
[2019-01-01] MEDS: SERTRALINE HCL 50 MG TABLET PO SCH (08:35)
[2019-01-01] MEDS: LORazepam 2 MG TABLET PO PRN ×2 (16:07→20:10)
[2019-01-01 16:21] VITALS: BP 139/78
[2019-01-01] MEDS: QUEtiapine FUMARATE 200 MG TABLET PO SCH (20:10)
[2019-01-02 05:21] VITALS: BP 141/92
[2019-01-02] MEDS: NICOTINE POLACRILEX 2 MG LOZENGE PO PRN ×3 (05:59→22:26)
[2019-01-02] MEDS: LEVOTHYROXINE SODIUM 50 MCG TABLET PO SCH (06:30)
[2019-01-02 08:00] VITALS: BP 133/75
[2019-01-02] MEDS: OXYBUTYNIN CHLORIDE 5 MG TABLET PO SCH ×2 (09:22→17:05)
[2019-01-02] MEDS: DIVALPROEX SODIUM 500 MG DR TABLET PO SCH ×3 (09:22→17:05)
[2019-01-02] MEDS: MULTIVITAMINS, THERAPEUTIC TABLET PO SCH (09:22)
[2019-01-02] MEDS: BENZTROPINE MESYLATE 2 MG TABLET PO SCH ×2 (09:22→20:22)
[2019-01-02] MEDS: HALOPERIDOL 5 MG TABLET PO PRN ×2 (09:23→17:05)
[2019-01-02] MEDS: LORazepam 2 MG TABLET PO PRN ×2 (09:23→17:05)
[2019-01-02] MEDS: SERTRALINE HCL 50 MG TABLET PO SCH (09:23)
[2019-01-02 16:12] VITALS: BP 136/77
[2019-01-02] MEDS: QUEtiapine FUMARATE 200 MG TABLET PO SCH (20:22)
[2019-01-03] MEDS: NICOTINE POLACRILEX 2 MG LOZENGE PO PRN ×3 (06:07→22:06)
[2019-01-03] MEDS: LEVOTHYROXINE SODIUM 50 MCG TABLET PO SCH (06:07)
[2019-01-03 07:13] VITALS: BP 137/69
[2019-01-03 09:12] VITALS: BP 128/78
[2019-01-03] MEDS: SERTRALINE HCL 50 MG TABLET PO SCH (09:32)
[2019-01-03] MEDS: DIVALPROEX SODIUM 500 MG DR TABLET PO SCH ×3 (09:32→16:38)
[2019-01-03] MEDS: MULTIVITAMINS, THERAPEUTIC TABLET PO SCH (09:32)
[2019-01-03] MEDS: BENZTROPINE MESYLATE 2 MG TABLET PO SCH ×2 (09:32→20:39)
[2019-01-03] MEDS: OXYBUTYNIN CHLORIDE 5 MG TABLET PO SCH ×2 (09:33→16:38)
[2019-01-03 16:19] VITALS: BP 124/79
[2019-01-03] MEDS: LORazepam 2 MG TABLET PO PRN ×2 (16:38→20:39)
[2019-01-03] MEDS: QUEtiapine FUMARATE 200 MG TABLET PO SCH (20:39)
[2019-01-04] MEDS: LEVOTHYROXINE SODIUM 50 MCG TABLET PO SCH (06:30)
[2019-01-04 08:08] VITALS: BP 138/80
[2019-01-04] MEDS: OXYBUTYNIN CHLORIDE 5 MG TABLET PO SCH ×2 (09:04→16:13)
[2019-01-04] MEDS: MULTIVITAMINS, THERAPEUTIC TABLET PO SCH (09:04)
[2019-01-04] MEDS: LORazepam 2 MG TABLET PO PRN ×2 (09:04→20:32)
[2019-01-04] MEDS: BENZTROPINE MESYLATE 2 MG TABLET PO SCH ×2 (09:04→20:23)
[2019-01-04] MEDS: SERTRALINE HCL 50 MG TABLET PO SCH (09:04)
[2019-01-04] MEDS: DIVALPROEX SODIUM 500 MG DR TABLET PO SCH ×3 (09:04→16:14)
[2019-01-04 16:00] VITALS: BP 137/84
[2019-01-04] MEDS: NICOTINE POLACRILEX 2 MG LOZENGE PO PRN (16:14)
[2019-01-04] MEDS: QUEtiapine FUMARATE 200 MG TABLET PO SCH (20:23)
[2019-01-05] MEDS: NICOTINE POLACRILEX 2 MG LOZENGE PO PRN ×3 (03:56→20:46)
[2019-01-05 04:46] VITALS: BP 133/80
[2019-01-05] MEDS: GuaiFENesin/D-METHORPHAN [SUGAR-FREE] 200-20MG/10 ML SYRUP UDCUP PO PRN (06:11)
[2019-01-05] MEDS: LEVOTHYROXINE SODIUM 50 MCG TABLET PO SCH (06:11)
[2019-01-05 09:02] VITALS: BP 140/84
[2019-01-05] MEDS: BENZTROPINE MESYLATE 2 MG TABLET PO SCH ×2 (09:03→20:30)
[2019-01-05] MEDS: OXYBUTYNIN CHLORIDE 5 MG TABLET PO SCH ×2 (09:03→16:31)
[2019-01-05] MEDS: DIVALPROEX SODIUM 500 MG DR TABLET PO SCH ×3 (09:03→16:31)
[2019-01-05] MEDS: MULTIVITAMINS, THERAPEUTIC TABLET PO SCH (09:03)
[2019-01-05] MEDS: SERTRALINE HCL 50 MG TABLET PO SCH (09:03)
[2019-01-05 16:00] VITALS: BP 123/85
[2019-01-05] MEDS: HALOPERIDOL 5 MG TABLET PO PRN (16:31)
[2019-01-05] MEDS: LORazepam 2 MG TABLET PO PRN ×2 (16:31→20:30)
[2019-01-05] MEDS: QUEtiapine FUMARATE 200 MG TABLET PO SCH (20:30)
[2019-01-06 05:21] VITALS: BP 132/72
[2019-01-06] MEDS: LEVOTHYROXINE SODIUM 50 MCG TABLET PO SCH (06:52)
[2019-01-06] MEDS: NICOTINE POLACRILEX 2 MG LOZENGE PO PRN (07:01)
[2019-01-06 08:07] VITALS: BP 130/78
[2019-01-06] MEDS: LORazepam 2 MG TABLET PO PRN ×3 (08:50→20:25)
[2019-01-06] MEDS: SERTRALINE HCL 50 MG TABLET PO SCH (08:50)
[2019-01-06] MEDS: OXYBUTYNIN CHLORIDE 5 MG TABLET PO SCH ×2 (08:50→16:17)
[2019-01-06] MEDS: MULTIVITAMINS, THERAPEUTIC TABLET PO SCH (08:50)
[2019-01-06] MEDS: DIVALPROEX SODIUM 500 MG DR TABLET PO SCH ×3 (08:50→16:17)
[2019-01-06] MEDS: BENZTROPINE MESYLATE 2 MG TABLET PO SCH ×2 (08:50→20:22)
[2019-01-06 16:00] VITALS: BP 134/88
[2019-01-06] MEDS: QUEtiapine FUMARATE 200 MG TABLET PO SCH (20:22)
[2019-01-07 02:05] VITALS: BP 124/82
[2019-01-07] MEDS: LEVOTHYROXINE SODIUM 50 MCG TABLET PO SCH (06:56)
[2019-01-07] MEDS: NICOTINE POLACRILEX 2 MG LOZENGE PO PRN ×3 (07:03→23:44)
[2019-01-07 08:26] VITALS: BP 125/81
[2019-01-07] MEDS: BENZTROPINE MESYLATE 2 MG TABLET PO SCH ×2 (08:32→20:28)
[2019-01-07] MEDS: MULTIVITAMINS, THERAPEUTIC TABLET PO SCH (08:32)
[2019-01-07] MEDS: OXYBUTYNIN CHLORIDE 5 MG TABLET PO SCH ×2 (08:32→16:26)
[2019-01-07] MEDS: SERTRALINE HCL 50 MG TABLET PO SCH (08:32)
[2019-01-07] MEDS: DIVALPROEX SODIUM 500 MG DR TABLET PO SCH ×3 (08:32→16:26)
[2019-01-07 16:19] VITALS: BP 129/87
[2019-01-07] MEDS: LORazepam 2 MG TABLET PO PRN ×2 (16:27→20:28)
[2019-01-07] MEDS: QUEtiapine FUMARATE 200 MG TABLET PO SCH (20:28)
[2019-01-08 00:31] VITALS: BP 126/78
[2019-01-08] MEDS: LEVOTHYROXINE SODIUM 50 MCG TABLET PO SCH (06:29)
[2019-01-08] MEDS: NICOTINE POLACRILEX 2 MG LOZENGE PO PRN ×2 (08:24→16:38)
[2019-01-08] MEDS: DIVALPROEX SODIUM 500 MG DR TABLET PO SCH ×3 (08:25→16:16)
[2019-01-08] MEDS: MULTIVITAMINS, THERAPEUTIC TABLET PO SCH (08:25)
[2019-01-08] MEDS: OXYBUTYNIN CHLORIDE 5 MG TABLET PO SCH ×2 (08:25→16:16)
[2019-01-08] MEDS: SERTRALINE HCL 50 MG TABLET PO SCH (08:25)
[2019-01-08] MEDS: BENZTROPINE MESYLATE 2 MG TABLET PO SCH ×2 (08:26→20:15)
[2019-01-08 09:08] VITALS: BP 134/86
[2019-01-08 16:00] VITALS: BP 140/80
[2019-01-08] MEDS: HALOPERIDOL 5 MG TABLET PO PRN (16:16)
[2019-01-08] MEDS: LORazepam 2 MG TABLET PO PRN (18:15)
[2019-01-08] MEDS: QUEtiapine FUMARATE 200 MG TABLET PO SCH (20:15)
[2019-01-09] MEDS: NICOTINE POLACRILEX 2 MG LOZENGE PO PRN ×2 (00:30→16:25)
[2019-01-09 00:46] VITALS: BP 120/76
[2019-01-09] MEDS: LEVOTHYROXINE SODIUM 50 MCG TABLET PO SCH (06:13)
[2019-01-09 08:10] VITALS: BP 124/73
[2019-01-09] MEDS: MULTIVITAMINS, THERAPEUTIC TABLET PO SCH (08:34)
[2019-01-09] MEDS: DIVALPROEX SODIUM 500 MG DR TABLET PO SCH ×3 (08:34→16:25)
[2019-01-09] MEDS: LORazepam 2 MG TABLET PO PRN ×4 (08:34→20:39)
[2019-01-09] MEDS: OXYBUTYNIN CHLORIDE 5 MG TABLET PO SCH ×2 (08:34→16:25)
[2019-01-09] MEDS: BENZTROPINE MESYLATE 2 MG TABLET PO SCH ×2 (08:34→20:22)
[2019-01-09] MEDS: SERTRALINE HCL 50 MG TABLET PO SCH (08:35)
[2019-01-09 16:03] VITALS: BP 136/67
[2019-01-09] MEDS: HALOPERIDOL 5 MG TABLET PO PRN ×2 (16:25→20:39)
[2019-01-09] MEDS: QUEtiapine FUMARATE 200 MG TABLET PO SCH (20:22)
[2019-01-10] MEDS: NICOTINE POLACRILEX 2 MG LOZENGE PO PRN ×2 (04:17→16:21)
[2019-01-10 06:03] VITALS: BP 128/79
[2019-01-10] MEDS: LEVOTHYROXINE SODIUM 50 MCG TABLET PO SCH (06:30)
[2019-01-10] MEDS: SERTRALINE HCL 50 MG TABLET PO SCH (08:56)
[2019-01-10] MEDS: MULTIVITAMINS, THERAPEUTIC TABLET PO SCH (08:56)
[2019-01-10] MEDS: OXYBUTYNIN CHLORIDE 5 MG TABLET PO SCH ×2 (08:56→16:21)
[2019-01-10] MEDS: LORazepam 2 MG TABLET PO PRN ×3 (08:56→20:32)
[2019-01-10] MEDS: DIVALPROEX SODIUM 500 MG DR TABLET PO SCH ×3 (08:56→16:20)
[2019-01-10] MEDS: BENZTROPINE MESYLATE 2 MG TABLET PO SCH ×2 (08:56→20:32)
[2019-01-10 11:06] VITALS: BP 132/89
[2019-01-10] MEDS: HALOPERIDOL 5 MG TABLET PO PRN ×2 (11:08→16:20)
[2019-01-10 16:57] VITALS: BP 138/81
[2019-01-10] MEDS: QUEtiapine FUMARATE 200 MG TABLET PO SCH (20:32)
[2019-01-11 05:05] VITALS: BP 136/86
[2019-01-11] MEDS: LEVOTHYROXINE SODIUM 50 MCG TABLET PO SCH (06:10)
[2019-01-11] MEDS: NICOTINE POLACRILEX 2 MG LOZENGE PO PRN ×2 (06:43→16:35)
[2019-01-11] MEDS: LORazepam 2 MG TABLET PO PRN ×2 (08:49→16:35)
[2019-01-11] MEDS: MULTIVITAMINS, THERAPEUTIC TABLET PO SCH (08:49)
[2019-01-11] MEDS: DIVALPROEX SODIUM 500 MG DR TABLET PO SCH ×3 (08:49→16:35)
[2019-01-11] MEDS: OXYBUTYNIN CHLORIDE 5 MG TABLET PO SCH ×2 (08:49→16:35)
[2019-01-11] MEDS: BENZTROPINE MESYLATE 2 MG TABLET PO SCH ×2 (08:49→20:29)
[2019-01-11] MEDS: SERTRALINE HCL 50 MG TABLET PO SCH (08:49)
[2019-01-11] MEDS: HALOPERIDOL 5 MG TABLET PO PRN (16:35)
[2019-01-11 16:41] VITALS: BP 136/76
[2019-01-11] MEDS: QUEtiapine FUMARATE 200 MG TABLET PO SCH (20:29)
[2019-01-12] MEDS: NICOTINE POLACRILEX 2 MG LOZENGE PO PRN ×2 (05:22→22:46)
[2019-01-12 05:37] VITALS: BP 125/76
[2019-01-12] MEDS: LEVOTHYROXINE SODIUM 50 MCG TABLET PO SCH (05:57)
[2019-01-12 08:34] VITALS: BP 115/76
[2019-01-12] MEDS: SERTRALINE HCL 50 MG TABLET PO SCH (08:52)
[2019-01-12] MEDS: BENZTROPINE MESYLATE 2 MG TABLET PO SCH ×2 (08:52→20:28)
[2019-01-12] MEDS: MULTIVITAMINS, THERAPEUTIC TABLET PO SCH (08:52)
[2019-01-12] MEDS: OXYBUTYNIN CHLORIDE 5 MG TABLET PO SCH ×2 (08:52→16:33)
[2019-01-12] MEDS: DIVALPROEX SODIUM 500 MG DR TABLET PO SCH ×3 (08:52→16:33)
[2019-01-12] MEDS: LORazepam 2 MG TABLET PO PRN ×2 (08:52→18:18)
[2019-01-12 16:00] VITALS: BP 136/86
[2019-01-12] MEDS: HALOPERIDOL 5 MG TABLET PO PRN (18:18)
[2019-01-12] MEDS: QUEtiapine FUMARATE 200 MG TABLET PO SCH (20:28)
[2019-01-13] MEDS: LEVOTHYROXINE SODIUM 50 MCG TABLET PO SCH (06:30)
[2019-01-13 06:59] VITALS: BP 131/76
[2019-01-13] MEDS: NICOTINE POLACRILEX 2 MG LOZENGE PO PRN ×2 (07:02→20:31)
[2019-01-13 08:19] VITALS: BP 136/82
[2019-01-13] MEDS: MULTIVITAMINS, THERAPEUTIC TABLET PO SCH (08:52)
[2019-01-13] MEDS: SERTRALINE HCL 50 MG TABLET PO SCH (08:52)
[2019-01-13] MEDS: DIVALPROEX SODIUM 500 MG DR TABLET PO SCH ×3 (08:52→16:30)
[2019-01-13] MEDS: OXYBUTYNIN CHLORIDE 5 MG TABLET PO SCH ×2 (08:52→16:30)
[2019-01-13] MEDS: LORazepam 2 MG TABLET PO PRN ×3 (08:52→20:30)
[2019-01-13] MEDS: BENZTROPINE MESYLATE 2 MG TABLET PO SCH ×2 (08:56→20:30)
[2019-01-13 16:00] VITALS: BP 137/78
[2019-01-13] MEDS: HALOPERIDOL 5 MG TABLET PO PRN (16:30)
[2019-01-13] MEDS: QUEtiapine FUMARATE 200 MG TABLET PO SCH (20:30)
[2019-01-14] MEDS: NICOTINE POLACRILEX 2 MG LOZENGE PO PRN ×3 (05:16→22:32)
[2019-01-14] MEDS: LEVOTHYROXINE SODIUM 50 MCG TABLET PO SCH (06:30)
[2019-01-14 08:19] VITALS: BP 131/80
[2019-01-14] MEDS: DIVALPROEX SODIUM 500 MG DR TABLET PO SCH ×3 (08:29→16:21)
[2019-01-14] MEDS: OXYBUTYNIN CHLORIDE 5 MG TABLET PO SCH ×2 (08:29→16:21)
[2019-01-14] MEDS: SERTRALINE HCL 50 MG TABLET PO SCH (08:29)
[2019-01-14] MEDS: HALOPERIDOL 5 MG TABLET PO PRN (08:29)
[2019-01-14] MEDS: MULTIVITAMINS, THERAPEUTIC TABLET PO SCH (08:29)
[2019-01-14] MEDS: LORazepam 2 MG TABLET PO PRN ×3 (08:29→19:25)
[2019-01-14] MEDS: BENZTROPINE MESYLATE 2 MG TABLET PO SCH ×2 (08:29→20:39)
[2019-01-14 16:00] VITALS: BP 137/69
[2019-01-14] MEDS: QUEtiapine FUMARATE 200 MG TABLET PO SCH (20:39)
[2019-01-15] MEDS: LEVOTHYROXINE SODIUM 50 MCG TABLET PO SCH (06:10)
[2019-01-15] MEDS: NICOTINE POLACRILEX 2 MG LOZENGE PO PRN ×2 (06:11→21:19)
[2019-01-15] MEDS: LORazepam 2 MG TABLET PO PRN ×3 (08:34→21:03)
[2019-01-15] MEDS: DIVALPROEX SODIUM 500 MG DR TABLET PO SCH ×3 (08:34→17:03)
[2019-01-15] MEDS: SERTRALINE HCL 50 MG TABLET PO SCH (08:34)
[2019-01-15] MEDS: BENZTROPINE MESYLATE 2 MG TABLET PO SCH ×2 (08:34→21:03)
[2019-01-15] MEDS: MULTIVITAMINS, THERAPEUTIC TABLET PO SCH (08:34)
[2019-01-15] MEDS: OXYBUTYNIN CHLORIDE 5 MG TABLET PO SCH ×2 (08:34→17:03)
[2019-01-15 10:00] VITALS: BP 136/86
[2019-01-15] MEDS: HALOPERIDOL 5 MG TABLET PO PRN (17:03)
[2019-01-15] MEDS: QUEtiapine FUMARATE 200 MG TABLET PO SCH (21:03)
[2019-01-16] MEDS: NICOTINE POLACRILEX 2 MG LOZENGE PO PRN ×2 (05:37→20:07)
[2019-01-16] MEDS: LEVOTHYROXINE SODIUM 50 MCG TABLET PO SCH (06:30)
[2019-01-16] MEDS: MULTIVITAMINS, THERAPEUTIC TABLET PO SCH (09:21)
[2019-01-16] MEDS: OXYBUTYNIN CHLORIDE 5 MG TABLET PO SCH ×2 (09:21→16:51)
[2019-01-16] MEDS: LORazepam 2 MG TABLET PO PRN ×2 (09:21→18:14)
[2019-01-16] MEDS: DIVALPROEX SODIUM 500 MG DR TABLET PO SCH ×3 (09:21→16:51)
[2019-01-16] MEDS: SERTRALINE HCL 50 MG TABLET PO SCH (09:21)
[2019-01-16] MEDS: BENZTROPINE MESYLATE 2 MG TABLET PO SCH ×2 (09:21→20:08)
[2019-01-16 16:00] VITALS: BP_SYST 109; BP_SYST 142; BP_DIAS 72; BP_DIAS 84
[2019-01-16] MEDS: HALOPERIDOL 5 MG TABLET PO PRN (16:52)
[2019-01-16] MEDS: QUEtiapine FUMARATE 200 MG TABLET PO SCH (20:08)
[2019-01-17] MEDS: NICOTINE POLACRILEX 2 MG LOZENGE PO PRN ×2 (05:01→20:57)
[2019-01-17 05:04] VITALS: BP 132/81
[2019-01-17] MEDS: LEVOTHYROXINE SODIUM 50 MCG TABLET PO SCH (06:30)
[2019-01-17] MEDS: BENZTROPINE MESYLATE 2 MG TABLET PO SCH ×2 (08:10→20:55)
[2019-01-17] MEDS: SERTRALINE HCL 50 MG TABLET PO SCH (08:10)
[2019-01-17] MEDS: MULTIVITAMINS, THERAPEUTIC TABLET PO SCH (08:10)
[2019-01-17] MEDS: DIVALPROEX SODIUM 500 MG DR TABLET PO SCH ×3 (08:10→16:58)
[2019-01-17] MEDS: OXYBUTYNIN CHLORIDE 5 MG TABLET PO SCH ×2 (08:10→16:58)
[2019-01-17] MEDS: LORazepam 2 MG TABLET PO PRN ×2 (08:10→16:58)
[2019-01-17 16:00] VITALS: BP 138/80
[2019-01-17] MEDS: QUEtiapine FUMARATE 200 MG TABLET PO SCH (20:55)
[2019-01-18 02:53] VITALS: BP 137/94
[2019-01-18] MEDS: LEVOTHYROXINE SODIUM 50 MCG TABLET PO SCH (06:22)
[2019-01-18] MEDS: SERTRALINE HCL 50 MG TABLET PO SCH (08:00)
[2019-01-18] MEDS: LORazepam 2 MG TABLET PO PRN ×3 (08:00→20:46)
[2019-01-18] MEDS: MULTIVITAMINS, THERAPEUTIC TABLET PO SCH (08:00)
[2019-01-18] MEDS: DIVALPROEX SODIUM 500 MG DR TABLET PO SCH ×3 (08:00→16:46)
[2019-01-18] MEDS: OXYBUTYNIN CHLORIDE 5 MG TABLET PO SCH ×2 (08:07→16:46)
[2019-01-18] MEDS: BENZTROPINE MESYLATE 2 MG TABLET PO SCH ×2 (08:07→20:46)
[2019-01-18] MEDS: NICOTINE POLACRILEX 2 MG LOZENGE PO PRN ×2 (10:11→18:23)
[2019-01-18 16:00] VITALS: BP 128/88
[2019-01-18] MEDS: HALOPERIDOL 5 MG TABLET PO PRN (16:46)
[2019-01-18] MEDS: QUEtiapine FUMARATE 200 MG TABLET PO SCH (20:46)
[2019-01-19 06:28] VITALS: BP 136/84
[2019-01-19] MEDS: LEVOTHYROXINE SODIUM 50 MCG TABLET PO SCH (06:30)
[2019-01-19] MEDS: NICOTINE POLACRILEX 2 MG LOZENGE PO PRN ×3 (07:09→23:09)
[2019-01-19] MEDS: BENZTROPINE MESYLATE 2 MG TABLET PO SCH ×2 (08:43→20:55)
[2019-01-19] MEDS: OXYBUTYNIN CHLORIDE 5 MG TABLET PO SCH ×2 (08:43→16:54)
[2019-01-19] MEDS: LORazepam 2 MG TABLET PO PRN ×4 (08:43→20:55)
[2019-01-19] MEDS: MULTIVITAMINS, THERAPEUTIC TABLET PO SCH (08:43)
[2019-01-19] MEDS: DIVALPROEX SODIUM 500 MG DR TABLET PO SCH ×3 (08:43→16:54)
[2019-01-19] MEDS: SERTRALINE HCL 50 MG TABLET PO SCH (08:43)
[2019-01-19 16:28] VITALS: BP 135/89
[2019-01-19] MEDS: HALOPERIDOL 5 MG TABLET PO PRN (16:54)
[2019-01-19] MEDS: QUEtiapine FUMARATE 200 MG TABLET PO SCH (20:55)
[2019-01-20] MEDS: LEVOTHYROXINE SODIUM 50 MCG TABLET PO SCH (06:32)
[2019-01-20 06:36] VITALS: BP 132/82
[2019-01-20 08:35] VITALS: BP 137/89
[2019-01-20] MEDS: SERTRALINE HCL 50 MG TABLET PO SCH (09:02)
[2019-01-20] MEDS: OXYBUTYNIN CHLORIDE 5 MG TABLET PO SCH ×2 (09:02→16:29)
[2019-01-20] MEDS: BENZTROPINE MESYLATE 2 MG TABLET PO SCH ×2 (09:02→20:39)
[2019-01-20] MEDS: MULTIVITAMINS, THERAPEUTIC TABLET PO SCH (09:02)
[2019-01-20] MEDS: LORazepam 2 MG TABLET PO PRN ×3 (09:02→20:39)
[2019-01-20] MEDS: DIVALPROEX SODIUM 500 MG DR TABLET PO SCH ×3 (09:02→16:29)
[2019-01-20 16:17] VITALS: BP 135/77
[2019-01-20] MEDS: NICOTINE POLACRILEX 2 MG LOZENGE PO PRN ×2 (16:29→23:56)
[2019-01-20] MEDS: QUEtiapine FUMARATE 200 MG TABLET PO SCH (20:39)
[2019-01-21] MEDS: NICOTINE POLACRILEX 2 MG LOZENGE PO PRN ×3 (00:44→16:54)
[2019-01-21 05:16] VITALS: BP 140/87
[2019-01-21] MEDS: LEVOTHYROXINE SODIUM 50 MCG TABLET PO SCH (06:30)
[2019-01-21] MEDS: BENZTROPINE MESYLATE 2 MG TABLET PO SCH ×2 (08:47→20:31)
[2019-01-21] MEDS: DIVALPROEX SODIUM 500 MG DR TABLET PO SCH ×3 (08:47→16:18)
[2019-01-21] MEDS: MULTIVITAMINS, THERAPEUTIC TABLET PO SCH (08:47)
[2019-01-21] MEDS: LORazepam 2 MG TABLET PO PRN ×3 (08:47→20:31)
[2019-01-21] MEDS: OXYBUTYNIN CHLORIDE 5 MG TABLET PO SCH ×2 (08:47→16:19)
[2019-01-21] MEDS: SERTRALINE HCL 50 MG TABLET PO SCH (08:47)
[2019-01-21 08:56] VITALS: BP 137/78
[2019-01-21 16:16] VITALS: BP 133/68
[2019-01-21] MEDS: GuaiFENesin/D-METHORPHAN [SUGAR-FREE] 200-20MG/10 ML SYRUP UDCUP PO PRN (17:36)
[2019-01-21] MEDS: QUEtiapine FUMARATE 200 MG TABLET PO SCH (20:31)
[2019-01-21] MEDS: MAG HYDROX/AL HYDROX/SIMETH ES 30 ML SUSPENSION UDCUP PO PRN (22:41)
[2019-01-22] MEDS: NICOTINE POLACRILEX 2 MG LOZENGE PO PRN ×3 (00:59→17:12)
[2019-01-22 01:00] VITALS: BP 136/92
[2019-01-22] MEDS: LEVOTHYROXINE SODIUM 50 MCG TABLET PO SCH (06:20)
[2019-01-22] MEDS: SERTRALINE HCL 50 MG TABLET PO SCH (08:05)
[2019-01-22] MEDS: OXYBUTYNIN CHLORIDE 5 MG TABLET PO SCH ×2 (08:05→16:16)
[2019-01-22] MEDS: BENZTROPINE MESYLATE 2 MG TABLET PO SCH ×2 (08:05→20:08)
[2019-01-22] MEDS: MULTIVITAMINS, THERAPEUTIC TABLET PO SCH (08:05)
[2019-01-22] MEDS: DIVALPROEX SODIUM 500 MG DR TABLET PO SCH ×3 (08:05→16:16)
[2019-01-22 08:49] VITALS: BP 134/96
[2019-01-22] MEDS: LORazepam 2 MG TABLET PO PRN ×2 (10:33→18:03)
[2019-01-22] MEDS: HALOPERIDOL 5 MG TABLET PO PRN (13:32)
[2019-01-22 16:00] VITALS: BP 136/86
[2019-01-22] MEDS: QUEtiapine FUMARATE 200 MG TABLET PO SCH (20:08)
[2019-01-23 00:20] VITALS: BP 134/85
[2019-01-23] MEDS: NICOTINE POLACRILEX 2 MG LOZENGE PO PRN ×3 (00:51→17:00)
[2019-01-23] MEDS: LEVOTHYROXINE SODIUM 50 MCG TABLET PO SCH (06:30)
[2019-01-23] MEDS: SERTRALINE HCL 50 MG TABLET PO SCH (09:02)
[2019-01-23] MEDS: BENZTROPINE MESYLATE 2 MG TABLET PO SCH ×2 (09:02→20:28)
[2019-01-23] MEDS: DIVALPROEX SODIUM 500 MG DR TABLET PO SCH ×3 (09:02→16:11)
[2019-01-23] MEDS: OXYBUTYNIN CHLORIDE 5 MG TABLET PO SCH ×2 (09:02→16:11)
[2019-01-23] MEDS: MULTIVITAMINS, THERAPEUTIC TABLET PO SCH (09:02)
[2019-01-23 09:43] VITALS: BP 139/94
[2019-01-23] MEDS: LORazepam 2 MG TABLET PO PRN ×2 (16:11→21:32)
[2019-01-23 16:14] VITALS: BP 136/98
[2019-01-23] MEDS: QUEtiapine FUMARATE 200 MG TABLET PO SCH (20:28)
[2019-01-23] MEDS: MAG HYDROX/AL HYDROX/SIMETH ES 30 ML SUSPENSION UDCUP PO PRN (21:32)
[2019-01-24 06:01] VITALS: BP 131/87
[2019-01-24] MEDS: LEVOTHYROXINE SODIUM 50 MCG TABLET PO SCH (06:12)
[2019-01-24] MEDS: NICOTINE POLACRILEX 2 MG LOZENGE PO PRN ×2 (07:16→16:30)
[2019-01-24 08:22] VITALS: BP 135/86
[2019-01-24 08:26] VITALS: BP 128/86
[2019-01-24] MEDS: DIVALPROEX SODIUM 500 MG DR TABLET PO SCH ×3 (08:38→16:30)
[2019-01-24] MEDS: MULTIVITAMINS, THERAPEUTIC TABLET PO SCH (08:38)
[2019-01-24] MEDS: OXYBUTYNIN CHLORIDE 5 MG TABLET PO SCH ×2 (08:39→16:29)
[2019-01-24] MEDS: BENZTROPINE MESYLATE 2 MG TABLET PO SCH ×2 (08:39→20:37)
[2019-01-24] MEDS: SERTRALINE HCL 50 MG TABLET PO SCH (08:39)
[2019-01-24] MEDS: LORazepam 2 MG TABLET PO PRN ×2 (16:30→20:36)
[2019-01-24 16:35] VITALS: BP 139/89
[2019-01-24] MEDS: QUEtiapine FUMARATE 200 MG TABLET PO SCH (20:37)
[2019-01-25 00:21] VITALS: BP 129/86
[2019-01-25] MEDS: NICOTINE POLACRILEX 2 MG LOZENGE PO PRN ×2 (06:09→21:17)
[2019-01-25] MEDS: LEVOTHYROXINE SODIUM 50 MCG TABLET PO SCH (06:09)
[2019-01-25 08:26] VITALS: BP 136/89
[2019-01-25] MEDS: SERTRALINE HCL 50 MG TABLET PO SCH (08:41)
[2019-01-25] MEDS: LORazepam 2 MG TABLET PO PRN ×3 (08:41→21:09)
[2019-01-25] MEDS: BENZTROPINE MESYLATE 2 MG TABLET PO SCH ×2 (08:41→21:09)
[2019-01-25] MEDS: MULTIVITAMINS, THERAPEUTIC TABLET PO SCH (08:41)
[2019-01-25] MEDS: DIVALPROEX SODIUM 500 MG DR TABLET PO SCH ×3 (08:41→16:30)
[2019-01-25] MEDS: OXYBUTYNIN CHLORIDE 5 MG TABLET PO SCH ×2 (08:41→16:30)
[2019-01-25 16:00] VITALS: BP 133/88
[2019-01-25] MEDS: HALOPERIDOL 5 MG TABLET PO PRN (16:31)
[2019-01-25] MEDS: QUEtiapine FUMARATE 200 MG TABLET PO SCH (21:09)
[2019-01-26] MEDS: LEVOTHYROXINE SODIUM 50 MCG TABLET PO SCH (06:13)
[2019-01-26] MEDS: NICOTINE POLACRILEX 2 MG LOZENGE PO PRN ×3 (06:14→22:38)
[2019-01-26 06:32] VITALS: BP 137/91
[2019-01-26 08:16] VITALS: BP 137/82
[2019-01-26 08:39] LABS: ANION GAP 8 mmol/L (8-16); CALCIUM, TOTAL 9.1 mg/dL (8.8-10.5); CARBON DIOXIDE 31 mmol/L (22-29); CHLORIDE 100 mmol/L (98-107); CREATININE 1.26 mg/dL (0.60-1.30); GLOMERULAR FILTR. RATE CALC > 60 mL/min (>60); GLUCOSE,RANDOM 106 mg/dL (70-110); POTASSIUM 3.8 mmol/L (3.5-5.1); SODIUM SERUM 139 mmol/L (136-145); THYROID STIMULATING HORMONE 5.52 uIU/mL (0.36-3.74); UREA NITROGEN, BLOOD 13 mg/dL (7-18)
[2019-01-26] MEDS: LORazepam 2 MG TABLET PO PRN ×2 (08:49→16:51)
[2019-01-26] MEDS: MULTIVITAMINS, THERAPEUTIC TABLET PO SCH (08:49)
[2019-01-26] MEDS: DIVALPROEX SODIUM 500 MG DR TABLET PO SCH ×3 (08:49→16:51)
[2019-01-26] MEDS: SERTRALINE HCL 50 MG TABLET PO SCH (08:50)
[2019-01-26] MEDS: BENZTROPINE MESYLATE 2 MG TABLET PO SCH ×2 (08:50→20:31)
[2019-01-26] MEDS: OXYBUTYNIN CHLORIDE 5 MG TABLET PO SCH ×2 (08:50→16:51)
[2019-01-26 16:33] VITALS: BP 117/64
[2019-01-26] MEDS: HALOPERIDOL 5 MG TABLET PO PRN (16:51)
[2019-01-26] MEDS: QUEtiapine FUMARATE 200 MG TABLET PO SCH (20:30)
[2019-01-27 03:02] VITALS: BP 123/85
[2019-01-27] MEDS: LEVOTHYROXINE SODIUM 50 MCG TABLET PO SCH (06:30)
[2019-01-27] MEDS: NICOTINE POLACRILEX 2 MG LOZENGE PO PRN ×2 (07:03→22:42)
[2019-01-27] MEDS: BENZTROPINE MESYLATE 2 MG TABLET PO SCH ×2 (08:32→20:48)
[2019-01-27] MEDS: MULTIVITAMINS, THERAPEUTIC TABLET PO SCH (08:32)
[2019-01-27] MEDS: LORazepam 2 MG TABLET PO PRN ×3 (08:32→20:48)
[2019-01-27] MEDS: OXYBUTYNIN CHLORIDE 5 MG TABLET PO SCH ×2 (08:32→16:48)
[2019-01-27] MEDS: DIVALPROEX SODIUM 500 MG DR TABLET PO SCH ×3 (08:32→16:48)
[2019-01-27] MEDS: SERTRALINE HCL 50 MG TABLET PO SCH (08:32)
[2019-01-27 09:14] VITALS: BP 126/65
[2019-01-27 16:18] VITALS: BP 135/75
[2019-01-27] MEDS: HALOPERIDOL 5 MG TABLET PO PRN (16:48)
[2019-01-27] MEDS: QUEtiapine FUMARATE 200 MG TABLET PO SCH (20:48)
[2019-01-28] MEDS: LEVOTHYROXINE SODIUM 75 MCG TABLET PO SCH (06:30)
[2019-01-28] MEDS: NICOTINE POLACRILEX 2 MG LOZENGE PO PRN ×2 (06:45→14:52)
[2019-01-28 06:49] VITALS: BP 140/92
[2019-01-28 08:23] VITALS: BP 136/76
[2019-01-28] MEDS: OXYBUTYNIN CHLORIDE 5 MG TABLET PO SCH ×2 (08:26→16:27)
[2019-01-28] MEDS: MULTIVITAMINS, THERAPEUTIC TABLET PO SCH (08:26)
[2019-01-28] MEDS: SERTRALINE HCL 50 MG TABLET PO SCH (08:26)
[2019-01-28] MEDS: DIVALPROEX SODIUM 500 MG DR TABLET PO SCH ×3 (08:26→16:27)
[2019-01-28] MEDS: BENZTROPINE MESYLATE 2 MG TABLET PO SCH ×2 (09:01→20:40)
[2019-01-28] MEDS: HALOPERIDOL 5 MG TABLET PO PRN (16:27)
[2019-01-28] MEDS: LORazepam 2 MG TABLET PO PRN ×2 (16:27→20:40)
[2019-01-28 16:31] VITALS: BP 138/91
[2019-01-28] MEDS: QUEtiapine FUMARATE 200 MG TABLET PO SCH (20:40)
[2019-01-29] MEDS: LEVOTHYROXINE SODIUM 75 MCG TABLET PO SCH (06:03)
[2019-01-29 06:13] VITALS: BP 139/86
[2019-01-29] MEDS: NICOTINE POLACRILEX 2 MG LOZENGE PO PRN ×3 (06:34→22:38)
[2019-01-29 08:00] VITALS: BP 138/89
[2019-01-29] MEDS: SERTRALINE HCL 50 MG TABLET PO SCH (08:47)
[2019-01-29] MEDS: DOCUSATE SODIUM 100 MG CAPSULE PO PRN (08:47)
[2019-01-29] MEDS: LORazepam 2 MG TABLET PO PRN ×3 (08:47→20:37)
[2019-01-29] MEDS: MULTIVITAMINS, THERAPEUTIC TABLET PO SCH (08:47)
[2019-01-29] MEDS: DIVALPROEX SODIUM 500 MG DR TABLET PO SCH ×3 (08:47→16:36)
[2019-01-29] MEDS: BENZTROPINE MESYLATE 2 MG TABLET PO SCH ×2 (08:54→20:38)
[2019-01-29] MEDS: OXYBUTYNIN CHLORIDE 5 MG TABLET PO SCH ×2 (08:54→16:37)
[2019-01-29] MEDS: HALOPERIDOL 5 MG TABLET PO PRN (16:36)
[2019-01-29 16:37] VITALS: BP 127/96
[2019-01-29] MEDS: QUEtiapine FUMARATE 200 MG TABLET PO SCH (20:38)
[2019-01-30 03:37] VITALS: BP 131/70
[2019-01-30] MEDS: LEVOTHYROXINE SODIUM 75 MCG TABLET PO SCH (06:16)
[2019-01-30] MEDS: NICOTINE POLACRILEX 2 MG LOZENGE PO PRN ×3 (07:12→23:00)
[2019-01-30] MEDS: MULTIVITAMINS, THERAPEUTIC TABLET PO SCH (08:15)
[2019-01-30] MEDS: OXYBUTYNIN CHLORIDE 5 MG TABLET PO SCH ×2 (08:15→16:15)
[2019-01-30] MEDS: SERTRALINE HCL 50 MG TABLET PO SCH (08:15)
[2019-01-30] MEDS: LORazepam 2 MG TABLET PO PRN ×2 (08:15→18:41)
[2019-01-30] MEDS: DIVALPROEX SODIUM 500 MG DR TABLET PO SCH ×3 (08:15→16:15)
[2019-01-30] MEDS: BENZTROPINE MESYLATE 2 MG TABLET PO SCH ×2 (08:20→20:09)
[2019-01-30 08:33] VITALS: BP 135/74
[2019-01-30 16:00] VITALS: BP 133/88
[2019-01-30] MEDS: HALOPERIDOL 5 MG TABLET PO PRN (16:15)
[2019-01-30] MEDS: QUEtiapine FUMARATE 200 MG TABLET PO SCH (20:09)
[2019-01-31] MEDS: LEVOTHYROXINE SODIUM 75 MCG TABLET PO SCH (06:28)
[2019-01-31] MEDS: NICOTINE POLACRILEX 2 MG LOZENGE PO PRN ×3 (06:35→22:36)
[2019-01-31] MEDS: BENZTROPINE MESYLATE 2 MG TABLET PO SCH ×2 (08:55→20:27)
[2019-01-31] MEDS: DIVALPROEX SODIUM 500 MG DR TABLET PO SCH ×3 (08:55→16:53)
[2019-01-31] MEDS: MULTIVITAMINS, THERAPEUTIC TABLET PO SCH (08:55)
[2019-01-31] MEDS: SERTRALINE HCL 50 MG TABLET PO SCH (08:55)
[2019-01-31] MEDS: OXYBUTYNIN CHLORIDE 5 MG TABLET PO SCH ×2 (08:55→16:53)
[2019-01-31 08:56] VITALS: BP 128/77
[2019-01-31] MEDS: LORazepam 2 MG TABLET PO PRN ×2 (08:59→16:53)
[2019-01-31 16:25] VITALS: BP 126/69
[2019-01-31] MEDS: HALOPERIDOL 5 MG TABLET PO PRN (16:53)
[2019-01-31] MEDS: QUEtiapine FUMARATE 200 MG TABLET PO SCH (20:27)
[2019-02-01] MEDS: MAG HYDROX/AL HYDROX/SIMETH ES 30 ML SUSPENSION UDCUP PO PRN (05:21)
[2019-02-01] MEDS: NICOTINE POLACRILEX 2 MG LOZENGE PO PRN ×2 (06:25→16:54)
[2019-02-01] MEDS: LEVOTHYROXINE SODIUM 75 MCG TABLET PO SCH (06:26)
[2019-02-01 08:44] VITALS: BP 132/82
[2019-02-01] MEDS: LORazepam 2 MG TABLET PO PRN ×2 (08:55→13:49)
[2019-02-01] MEDS: OXYBUTYNIN CHLORIDE 5 MG TABLET PO SCH ×2 (08:56→16:53)
[2019-02-01] MEDS: MULTIVITAMINS, THERAPEUTIC TABLET PO SCH (08:56)
[2019-02-01] MEDS: DIVALPROEX SODIUM 500 MG DR TABLET PO SCH ×3 (08:56→16:54)
[2019-02-01] MEDS: SERTRALINE HCL 50 MG TABLET PO SCH (08:56)
[2019-02-01] MEDS: BENZTROPINE MESYLATE 2 MG TABLET PO SCH ×2 (08:56→20:19)
[2019-02-01 16:18] VITALS: BP 138/79
[2019-02-01] MEDS: HALOPERIDOL 5 MG TABLET PO PRN (16:54)
[2019-02-01] MEDS: QUEtiapine FUMARATE 200 MG TABLET PO SCH (20:19)
[2019-02-02] MEDS: LEVOTHYROXINE SODIUM 75 MCG TABLET PO SCH (06:30)
[2019-02-02] MEDS: NICOTINE POLACRILEX 2 MG LOZENGE PO PRN ×2 (06:40→15:38)
[2019-02-02] MEDS: OXYBUTYNIN CHLORIDE 5 MG TABLET PO SCH ×2 (08:45→16:38)
[2019-02-02] MEDS: BENZTROPINE MESYLATE 2 MG TABLET PO SCH ×2 (08:45→20:17)
[2019-02-02] MEDS: MULTIVITAMINS, THERAPEUTIC TABLET PO SCH (08:45)
[2019-02-02] MEDS: SERTRALINE HCL 50 MG TABLET PO SCH (08:45)
[2019-02-02] MEDS: LORazepam 2 MG TABLET PO PRN ×2 (08:45→18:19)
[2019-02-02] MEDS: DIVALPROEX SODIUM 500 MG DR TABLET PO SCH ×3 (08:46→16:38)
[2019-02-02 08:47] VITALS: BP 131/76
[2019-02-02 16:00] VITALS: BP 135/84
[2019-02-02] MEDS: HALOPERIDOL 5 MG TABLET PO PRN (16:38)
[2019-02-02] MEDS: QUEtiapine FUMARATE 200 MG TABLET PO SCH (20:17)
[2019-02-03] MEDS: NICOTINE POLACRILEX 2 MG LOZENGE PO PRN (00:05)
[2019-02-03] MEDS ORDERED: SERT50TA12 PO (03:48)
[2019-02-03] MEDS ORDERED: QUET300T2 PO (03:49)
[2019-02-03] MEDS ORDERED: OXYB5 PO (03:51)
[2019-02-03] MEDS ORDERED: LEVO75 PO (03:52)
[2019-02-03] MEDS ORDERED: MULT-1239 PO (03:52)
[2019-02-03 05:55] VITALS: BP 132/82
[2019-02-03] MEDS: LEVOTHYROXINE SODIUM 75 MCG TABLET PO SCH (06:30)
[2019-02-03] MEDS: SERTRALINE HCL 50 MG TABLET PO SCH (08:18)
[2019-02-03] MEDS: OXYBUTYNIN CHLORIDE 5 MG TABLET PO SCH (08:18)
[2019-02-03] MEDS: MULTIVITAMINS, THERAPEUTIC TABLET PO SCH (08:18)
[2019-02-03] MEDS: DIVALPROEX SODIUM 500 MG DR TABLET PO SCH (08:18)
[2019-02-03] MEDS: BENZTROPINE MESYLATE 2 MG TABLET PO SCH (08:18)
== END 2019-02-03 08:20 | disposition home or self-care (01) | DRG 750 ==
LOC: EMS 13:54 → 3EC 19:50 → 3EI 08-20 17:00 → 3EC 09-15 11:00 → 3EI 11-02 16:15 → B3A 11-09 14:07
PROVIDERS: ADMIT Psychiatry & Neurology Child & Adolescent Psychiatry; ATTEND Psychiatry & Neurology Child & Adolescent Psychiatry
DX: F25.0 Schizoaffective disorder, bipolar type (principal); B86 Scabies; G40.909 Epilepsy, unspecified, not intractable, without status epilepticus; E03.9 Hypothyroidism, unspecified; F17.200 Nicotine dependence, unspecified, uncomplicated; I10 Essential (primary) hypertension; K21.9 Gastro-esophageal reflux disease without esophagitis; R32 Unspecified urinary incontinence; Z91.19 Patient's noncompliance with other medical treatment and regimen; Z79.899 Other long term (current) drug therapy; Z23 Encounter for immunization
CPT/HCPCS: 83036; 84439; 84443; 87081; 90471; 90686; 96372; G0480; J1200; J1630; J2060; J3486